=== PATIENT | male | born 1960 | race Caucasian/White ===

== ENCOUNTER 2020-05-10 18:02 | Inpatient (IN) | payer OTHER, SELFPAY ==
[2020-05-10] VITALS (15 sets, daily range): BP systolic 123–152; BP diastolic 58–107; PULSE 68–110; RESP 15–36; TEMP 36.1–36.6; O2SAT 87–100; BMI 48.1
--- NOTE | ~2020-05-10 | XR_ITS ---
EXAMINATION: XR chest 1V portable EXAM DATE: 05/10/2020 18:53 INDICATION: Shortness of breath, COPD. TECHNIQUE: Portable AP frontal chest x-ray was obtained. Comparison is made to prior examination from 05/24/2017. FINDINGS: Cardiomegaly and pulmonary vascular congestion. There is indistinct reticulation with a bib dexter predominance which may indicate pulmonary edema. Infection not excludable. No pneumothorax or pl eural effusion. There are no osseous abnormalities identified. IMPRESSION: Findings suspicious for CHF exacerbation. Reviewed, dictated and finalized at location A. NICAL SERVICES ANALYST
--- NOTE | 2020-05-10 18:05 | ECG_ITS ---
Measurements Intervals [place] Rate: 97 P: 68 KS: 169 QRS: -53 QRSD: 96 T: 47 QT: 314 QTc: 400 Interpretive Statements SINUS RHYTHM WITH SINUS ARRHYTHMIA ATRIAL PREMATURE COMPLEXES LOW QRS VOLTAGE IN PRECORDIAL LEADS LEFT ANTERIOR FASCICULAR BLOCK BORDERLINE T WAVE ABNORMALITY- DIFFUSE LEADS BASELINE ARTIFACT- II, III, AVR, AVL, AVF, V2 ABNORMAL ECG Electronically Signed On 05-11-2020 7:42:08 METAL ROOM DENTAL TECHNICIAN by Kashif Levy D.O.
[2020-05-10 18:20] LABS: Basophils Percent Auto 0.7 % (0.2-1.2); Eosinophils Absolute Auto 0.2 K/mm3 (0-0.3); Eosinophils Percent Auto 3.9 % (0-4.4); Hematocrit 44.4 % (42.0-52.0); Hemoglobin 13.6 g/dL (14.0-18.0); Immature Granulocyte Absolute 0.07 K/mm3 (0.00-0.031); Immature Granulocyte Percent A 1.2 % (0-0.5); Lymphocytes Absolute Auto 1.64 K/mm3 (0.9-3.2); Lymphocytes Percent Auto 28.8 % (18.3-44.2); Mean Corpuscular HGB Conc 30.6 g/dl (32-36); Mean Corpuscular Hemoglobin 29.8 pg (26-34); Mean Corpuscular Volume 97.2 fl (80-100); Mean Platelet Volume 9.2 fl (7.4-10.4); Monocytes Absolute Auto 0.4 K/mm3 (0.1-0.6); Monocytes Percent Auto 7.5 % (2.6-8.5); Neutrophils Absolute Auto 3.3 K/mm3 (1.3-6.7); Neutrophils Percent Auto 57.9 % (45.5-73.1); Platelet Count Result 408 k/mm3 (150-375); Red Blood Count 4.57 M/mm3 (4.6-6.20); Red Cell Distribution Width 13.8 % (11.5-14.5); White Blood Count 5.7 K/mm3 (4.5-10.0)
[2020-05-10 18:31] LABS: Anion Gap 0 mmol/L (8-16); Blood Urea Nitrogen 21 mg/dL (9-20); Calcium 8.9 mg/dL (8.4-10.2); Carbon Dioxide 36 mmol/L (22-30); Chloride 106 mmol/L (98-107); Estimated CRCL calculation 103 ml/min; Estimated Glomerular Filt Rate > 60; Glucose 104 mg/dL (75-110); Potassium 4.7 mmol/L (3.4-5.0); Sodium 142 mmol/L (137-145)
[2020-05-10 18:43] LABS: Base Excess ABG 2.3 mEq/l (+/-2.0); Carboxyhemoglobin 2.4 % THb (0-2.0); Fractional Inspired Oxygen 21 %; HCO3 ABG 31.7 mEq/l (22.0-26.0); Methemoglobin ABG 0.3 %THb (0-1.5); Oxygen Content ABG 18.9 %vol (16.0-22.0); Oxygen Saturation ABG 97.9 % (95.0-100.0); Oxyhemoglobin 94.9 % THb (90.0-100.0); PO2 ABG 127.4 mmHg (80.0-100.0); PO2 FiO2 Ratio Arterial Blood 6.07 %; Reduced Hemoglobin 2.4 %THb (0-5.0)
[2020-05-10 18:45] LABS: PCO2 ABG 73.4 mmHg (35.0-45.0); pH ABG 7.253 (7.350-7.450)
[2020-05-10 18:46] LABS: Device ROOM AIR; Modified Allen's Test Pass; Site Drawn RIGHT RADIAL
[2020-05-10] MEDS: LORazepam INJ (*CRX) 2 MG/ML VIAL 1 MG IV PUSH (19:02)
[2020-05-10 19:13] LABS: NT Pro B Type Natriuretic Pept 865 PG/ML (5-100)
[2020-05-10] MEDS: FUROSEMIDE INJ 40 MG/4 ML VIAL IV PUSH (19:33)
--- NOTE | 2020-05-10 19:52 | ED.SOB ---
HPI - SOB/Dyspnea General Chief Complaint: Shortness of Breath/Dyspnea Stated Complaint: SOB Time Seen by Provider: 05/10/20 18:03 History of Present Illness HPI Narrative: Patient is a 60-year-old male who presents ER with shortness of breath. Patient reports increasing over the last couple days. Associate with swelling to the legs as well as orthopnea. Reports he has not been taking his home medications because he is forgetting. He is unsure why he started to forget. No runny nose/sore throat/productive cough. No Covid contacts. He has been without fevers or chills. No chest pain. Related Data Home Medications Medication Instructions Recorded Confirmed amitriptyline 50 mg PO HS 05/10/20 05/10/20 cyanocobalamin (vitamin B-12) 1,000 mcg PO DAILY 05/10/20 05/10/20 ezetimibe 10 mg PO DAILY 05/10/20 05/10/20 furosemide 40 mg PO DAILY 05/10/20 05/10/20 gabapentin 300 mg PO DAILY 05/10/20 05/10/20 losartan 50 mg PO DAILY 05/10/20 05/10/20 pravastatin 20 mg PO DAILY 05/10/20 05/10/20 ropinirole 2 mg PO DAILY 05/10/20 05/10/20 Allergies Allergy/AdvReac Type Severity Reaction Status Date / Time No Known Allergies Allergy Verified 05/10/20 18:08 Review of Systems Review of Systems: All systems reviewed & are unremarkable except as noted in HPI and below Constitutional: Constitutional: Denies chills, Reports fatigue, Denies fever(s) and Denies weakness Cardiovascular: Cardiovascular: Denies chest pain, Denies rapid heart rate and Denies radiating jaw, neck or arm pain Respiratory: Respiratory: Denies cough, Reports dyspnea and Denies wheezing Comments: Orthopnea Gastrointestinal: Gastrointestinal: Denies abdominal pain, Denies nausea and Denies vomiting Musculoskeletal: Comments: Extremity edema PMFSH Past Medical History Medical History (Updated 05/10/20 @ 21:17 by Armando Dent MD) COPD (chronic obstructive pulmonary disease) Coronary artery disease History of diverticulitis History of left heart catheterization Hypercholesterolemia Hypertension Surgical History Surgical History History of laparotomy Social History Social History Smoking status: Current every day smoker Gender identity (if verbalized by the patient): Male Exam Narrative: Exam Narrative: GENERAL: Well-appearing, obese, and in no acute distress. HEAD: Normocephalic, atraumatic. EYES: PERRL and EOMI. CHEST: Basilar rales. No respiratory distress. HEART: Regular rate and rhythm. Normal peripheral pulses. ABDOMEN: Soft, nontender, nondistended. EXTREMITIES: Normal range of motion. 2+ edema. SKIN: Warm, dry, no rash. NEURO: Alert and oriented x3. PSYCH: Normal mood and affect. Course Course Emergency Course: Admit to hospital service. Vital Signs Vital signs: Vital Signs Temperature 97.8 F 05/10/20 18:05 Pulse Rate 110 H 05/10/20 18:05 Respiratory Rate 36 H 05/10/20 18:05 Blood Pressure 151/107 H 05/10/20 18:05 Pulse Oximetry 87 L 05/10/20 18:05 Temperature 97.3 F L 05/10/20 23:58 Pulse Rate 103 H 05/10/20 23:58 Respiratory Rate 24 H 05/10/20 23:58 Blood Pressure 130/77 05/10/20 23:58 Pulse Oximetry 95 05/10/20 23:58 MDM - SOB/Dyspnea Lab Data Result diagrams: 05/10/20 18:13 05/10/20 18:13 Labs: Lab Results 05/10/20 05/10/20 05/10/20 Range/Units 18:12 18:13 18:13 WBC 5.7 (4.5-10.0) K/mm3 RBC 4.57 L (4.6-6.20) M/mm3 Hgb 13.6 L (14.0-18.0) g/dL Hct 44.4 (42.0-52.0) % MCV 97.2 (80-100) fl MCH 29.8 (26-34) pg MCHC 30.6 L (32-36) g/dl RDW 13.8 (11.5-14.5) % Plt Count 408 H (150-375) k/mm3 MPV 9.2 (7.4-10.4) fl Immature Gran % (Auto) 1.2 H (0-0.5) % Neut % (Auto) 57.9 (45.5-73.1) % Lymph % (Auto) 28.8 (18.3-44.2) % [place] % (Auto) 7.5 (2.6-8.5) % Eos % (Auto) 3.9 (0-4.4)
[2020-05-10 21:06] LABS: Base Excess ABG 5.9 mEq/l (+/-2.0); Fractional Inspired Oxygen 30 %; HCO3 ABG 34.3 mEq/l (22.0-26.0); Oxygen Content ABG 18.8 %vol (16.0-22.0); Oxygen Saturation ABG 92.3 % (95.0-100.0); Oxyhemoglobin 90.4 % THb (90.0-100.0); PO2 ABG 70.1 mmHg (80.0-100.0); PO2 FiO2 Ratio Arterial Blood 2.34 %; Total Hemoglobin 14.8 g/dL (12.0-18.0); pH ABG 7.327 (7.350-7.450)
[2020-05-10 21:08] LABS: Modified Allen's Test Pass; PCO2 ABG 67.1 mmHg (35.0-45.0); Site Drawn LEFT RADIAL
--- NOTE | 2020-05-10 21:08 | PM.IMHP ---
H&P: HPI History of Present Illness Date/Time: 05/10/20 21:08 Chief Complaint: shortness of breath Narrative: This is a 60-year-old male with known past medical history of coronary artery disease, COPD, congestive heart failure, hypertension who presented to the hospital with complaint of increased shortness of breath and increased lower extremity swelling over the past few days. The patient admitted to ER provider that he had not been taking his home medications because he had forgotten to take them. The patient denied any chest pain, fevers, chills or significant coughing. In the emergency room tonight the patient was evaluated and found to be in acute respiratory failure with hypercapnia. He was initiated on BiPAP and was given Ativan IV for anxiety. On my encounter with the patient he is responsive to verbal stimuli but very somnolent secondary to being medicated. The patient cannot reliably answer my questions at this time although he denies any other significant symptoms other than shortness of breath. Review of Systems Review of Systems: ROS unobtainable: Yes unobtainable due to mental status PMFSH Past Medical History Medical History (Updated 05/11/20 @ 01:31 by Armando Dent MD) COPD (chronic obstructive pulmonary disease) Coronary artery disease History of diverticulitis History of left heart catheterization Hypercholesterolemia Hypertension Surgical History Surgical History History of laparotomy Social History Social History Smoking packs per day: 1 Smoking cigarettes per day: 20.0 Years smoked: 40 Smoking pack-years: 40.00 Smoking status: Light tobacco smoker Tobacco type: cigarettes Additional smoking assessment comments: pt currently only smokes 1-2 cigarettes a day Alcohol intake: never Substance use type: crack/cocaine Last use: 05/09/2020 Gender identity (if verbalized by the patient): Male Spiritual care concerns: No Comments Past medical history, social history, surgical history, family histories are not obtainable secondary to the patient's mental status from being medicated. Meds Home Medications and Allergies Home Medications Medication Instructions Recorded Confirmed Type amitriptyline 50 mg PO HS 05/10/20 05/10/20 History cyanocobalamin (vitamin B-12) 1,000 mcg PO DAILY 05/10/20 05/10/20 History ezetimibe 10 mg PO DAILY 05/10/20 05/10/20 History furosemide 40 mg PO DAILY 05/10/20 05/10/20 History gabapentin 300 mg PO DAILY 05/10/20 05/10/20 History losartan 50 mg PO DAILY 05/10/20 05/10/20 History pravastatin 20 mg PO DAILY 05/10/20 05/10/20 History ropinirole 2 mg PO DAILY 05/10/20 05/10/20 History albuterol sulfate 2 puff INHALATION PRN PRN 05/11/20 05/11/20 History albuterol sulfate [ProAir HFA] 2 puff INHALATION Q4-6H PRN 05/11/20 05/11/20 History aspirin 81 mg PO DAILY 05/11/20 05/11/20 History cholecalciferol (vitamin D3) 50,000 unit PO WEEKLY 05/11/20 05/11/20 History tiotropium bromide [Spiriva with 1 cap INHALATION DAILY 05/11/20 05/11/20 History HandiHaler] Allergies Allergy/AdvReac Type Severity Reaction Status Date / Time No Known Allergies Allergy Verified 05/11/20 00:18 Vital Signs Vital Signs - 24 hr 05/10/20 18:05 05/10/20 18:11 05/10/20 18:15 Temperature 36.6 C Pulse Rate 110 H 107 H 93 Respiratory Rate 36 H 19 23 H Blood Pressure 151/107 H Pulse Oximetry 87 L 98 98 05/10/20 18:23 05/10/20 18:30 05/10/20 18:31 Temperature Pulse Rate 84 106 H Respiratory Rate 17 15 Blood Pressure 152/90 H Pulse Oximetry 99 99 96 05/10/20 18:45 05/10/20 19:00 05/10/20 19:03 Temperature Pulse Rate 98 90 94 Respiratory Rate 18 25 H 25 H Blood Pressure 134/103 H Pulse Oximetry 100 96 99 05/10/20 19:10 Temperature Pulse Rate 89 Respiratory Rate 17 Blood Pressure Pulse Oximetry 99 Exa
[2020-05-10 21:09] LABS: Device NON-INVASIVE VENT; Non-Invasive Expiratory Pressure 8 CMH2O; Non-Invasive Inspiratory Pressure 16 CMH2O; Non-Invasive Vent Rate 16 /MIN
[2020-05-11] VITALS (14 sets, daily range): BP systolic 128–155; BP diastolic 68–89; PULSE 63–108; RESP 12–22; TEMP 36.2–36.5; O2SAT 86–96
--- NOTE | 2020-05-11 04:26 | PC.NURSE ---
This patient, Jarek Machado, was admitted to IMU Room 207-01. Patient too drowsy to be oriented to hospital policies and general routines including ID bracelet, bed and alarms, visiting hours, pain management, procedures, bathroom and other care routines, personal items, smoking policy, room service/diet, and visiting hours.
[2020-05-11 05:39] LABS: Basophils Percent Auto 0.5 % (0.2-1.2); Eosinophils Absolute Auto 0.3 K/mm3 (0-0.3); Eosinophils Percent Auto 4.3 % (0-4.4); Hematocrit 44.9 % (42.0-52.0); Hemoglobin 13.7 g/dL (14.0-18.0); Immature Granulocyte Absolute 0.05 K/mm3 (0.00-0.031); Immature Granulocyte Percent A 0.8 % (0-0.5); Lymphocytes Percent Auto 25.8 % (18.3-44.2); Mean Corpuscular HGB Conc 30.5 g/dl (32-36); Mean Corpuscular Hemoglobin 29.5 pg (26-34); Mean Corpuscular Volume 96.8 fl (80-100); Mean Platelet Volume 9.4 fl (7.4-10.4); Monocytes Absolute Auto 0.4 K/mm3 (0.1-0.6); Monocytes Percent Auto 5.9 % (2.6-8.5); Neutrophils Absolute Auto 4.1 K/mm3 (1.3-6.7); Neutrophils Percent Auto 62.7 % (45.5-73.1); Platelet Count Result 406 k/mm3 (150-375); Red Blood Count 4.64 M/mm3 (4.6-6.20); White Blood Count 6.6 K/mm3 (4.5-10.0)
[2020-05-11 06:00] LABS: Anion Gap 1 mmol/L (8-16); Blood Urea Nitrogen 18 mg/dL (9-20); Calcium 8.6 mg/dL (8.4-10.2); Carbon Dioxide 39 mmol/L (22-30); Chloride 102 mmol/L (98-107); Estimated CRCL calculation 98 ml/min; Estimated Glomerular Filt Rate > 60; Glucose 96 mg/dL (75-110); Magnesium 2.1 mg/dL (1.6-2.3); Potassium 4.3 mmol/L (3.4-5.0); Sodium 142 mmol/L (137-145)
[2020-05-11] MEDS: PRAVASTATIN SODIUM 20 MG TABLET PO (08:33)
[2020-05-11] MEDS: rOPINIRole HCL 1 MG TABLET 2 MG PO (08:33)
[2020-05-11] MEDS: EZETIMIBE 10 MG TABLET PO (08:34)
[2020-05-11] MEDS: ASPIRIN 81 MG ENTERIC TABLET PO (08:34)
[2020-05-11] MEDS: CYANOCOBALAMIN 1,000 MCG TABLET 1000 MCG PO (08:34)
[2020-05-11] MEDS: ENOXAPARIN 40 MG/0.4 ML SYRINGE SUB-Q (08:34)
[2020-05-11] MEDS: ERGOCALCIFEROL 50,000 UNIT CAPSULE 50000 UNITS PO (08:34)
[2020-05-11] MEDS: GABAPENTIN 300 MG CAPSULE PO (08:34)
[2020-05-11] MEDS: LOSARTAN POTASSIUM 50 MG TABLET PO (08:34)
[2020-05-11] MEDS: FUROSEMIDE INJ 40 MG/4 ML VIAL IV PUSH ×2 (08:37→20:53)
[2020-05-11 09:25] LABS: Alveolar/Arterial O2 Gradient 65.3 mmHg; Base Excess ABG 7.1 mEq/l (+/-2.0); Fractional Inspired Oxygen 28 %; HCO3 ABG 35.1 mEq/l (22.0-26.0); Oxygen Content ABG 19.2 %vol (16.0-22.0); Oxygen Saturation ABG 88.9 % (95.0-100.0); Oxyhemoglobin 88.9 % THb (90.0-100.0); PO2 ABG 59.2 mmHg (80.0-100.0); PO2 FiO2 Ratio Arterial Blood 2.11 %; Total Hemoglobin 15.4 g/dL (12.0-18.0); pH ABG 7.359 (7.350-7.450)
[2020-05-11 09:30] LABS: Device NASAL CANNULA; Modified Allen's Test Pass; PCO2 ABG 63.7 mmHg (35.0-45.0); Site Drawn RIGHT RADIAL
--- NOTE | 2020-05-11 15:02 | PM.IMPN ---
Progress Note: A&P Assessment and Plan (1) COPD (chronic obstructive pulmonary disease): Qualifiers: COPD type: unspecified COPD Qualified Code(s): J44.9 - Chronic obstructive pulmonary disease, unspecified Code(s): J44.9 - Chronic obstructive pulmonary disease, unspecified Status: Chronic Assessment and Plan: BiPAP continuous at night time BiPAP for naps during day time Breathing treatments (2) Hypercholesterolemia: Code(s): E78.00 - Pure hypercholesterolemia, unspecified Status: Chronic Assessment and Plan: Follow up in the outpatient setting. (3) Hypertension: Qualifiers: Hypertension type: unspecified Qualified Code(s): I10 - Essential (primary) hypertension Code(s): I10 - Essential (primary) hypertension Status: Chronic Assessment and Plan: Stable Continue to monitor Continue home meds (4) Acute exacerbation of congestive heart failure: Qualifiers: Heart failure type: unspecified Qualified Code(s): I50.9 - Heart failure, unspecified Code(s): I50.9 - Heart failure, unspecified Status: Acute Assessment and Plan: Doubtful as BPN is slightly elevated Discretion with diuresis Strict I/O's 2DECHO pending (5) Acute hypercapnic respiratory failure: Code(s): J96.02 - Acute respiratory failure with hypercapnia Status: Acute Assessment and Plan: Continue BiPAP ABG noted Subjective Date/time seen: 05/11/20 15:02 I feel fine. Review of Systems Review of Systems: Narrative: Unable to get a thorough review as patient dozes back to sleep. Exam Narrative: Exam Narrative: Sitting on chair. Const: General: no acute distress and lethargic Nutritional Appearance: overweight Orientation/consciousness: patient oriented x3 and lethargic HENMT: Head: normal to inspection and normocephalic Ears: hearing grossly normal bilaterally General nose exam: Normal external nose present Face and sinus: normal facial exam Eyes: General: appearance normal, both eyes and all related structures Pupils: Equal, round and reactive pupils present EOM: EOMs intact bilaterally Neck: Neck: normal visual inspection, no lymphadenopathy, supple and no JVD Resp: Auscultation: diminished lung sounds Cardio: Jugular venous distension: no JVD Rate: regular rate Rhythm: regular rhythm GI: Inspection: Pannus present GI Palp: Yes Soft to palpation and Yes No hepatosplenomegaly present Skin: General skin exam: normal color Rashes: no rashes Wounds: no wounds Neuro: General: patient oriented x3 and CN's II-XI intact bilaterally Cranial nerves: Yes CN's II-XII intact bilaterally and Yes Equal, round and reactive pupils present Cognition (Neuro): abnormal cognition (Mildly obtunded easily arousable. ) Speech: normal speech Motor exam (neuro): 5/5 motor strength present throughout Extrem: General: full ROM and other (B/L pedal edema.) Objective Data Vital Signs Vital Signs: Vital Signs - 24 hr 05/10/20 18:05 05/10/20 18:11 05/10/20 18:15 Temperature 97.8 F Pulse Rate 110 H 107 H 93 Respiratory Rate 36 H 19 23 H Blood Pressure 151/107 H Pulse Oximetry 87 L 98 98 05/10/20 18:23 05/10/20 18:30 05/10/20 18:31 Temperature Pulse Rate 84 106 H Respiratory Rate 17 15 Blood Pressure 152/90 H Pulse Oximetry 99 99 96 05/10/20 18:45 05/10/20 19:00 05/10/20 19:03 Temperature Pulse Rate 98 90 94 Respiratory Rate 18 25 H 25 H Blood Pressure 134/103 H Pulse Oximetry 100 96 99 05/10/20 19:10 05/10/20 22:29 05/10/20 22:35 Temperature Pulse Rate 89 110 H Respiratory Rate 17 29 H Blood Pressure 151/89 H Pulse Oximetry 99 98 05/10/20 22:40 05/10/20 22:49 05/10/20 23:58 Temperature 96.9 F L 97.3 F L Pulse Rate 68 89 103 H Respiratory Rate 17 24 H Blood Pressure 123/58 L 130/77 Pulse Oximetry 98 95 05/11/20 00:00 05/11/20 00:30 05/11/20 02:00 Temper
[2020-05-12] VITALS (11 sets, daily range): BP systolic 124–150; BP diastolic 64–87; PULSE 70–100; RESP 16–28; TEMP 36.3–36.9; O2SAT 91–95
--- NOTE | 2020-05-12 00:02 | PC.NURSE ---
This patient, Jarek Machado, was transferred to [[id number] ] on 05/12/20 at 0002. Personal belongings sent with patient. Report given to [Selene lópez ]. Appropriate documentation sent with patient.
[2020-05-12] MEDS: SALINE 0.65% NAS SOLN 44 ML BTL 1 SPRAY NASAL (04:10)
[2020-05-12] MEDS: ASPIRIN 81 MG ENTERIC TABLET PO (08:28)
[2020-05-12] MEDS: CYANOCOBALAMIN 1,000 MCG TABLET 1000 MCG PO (08:28)
[2020-05-12] MEDS: FUROSEMIDE INJ 40 MG/4 ML VIAL IV PUSH ×2 (08:29→20:50)
[2020-05-12] MEDS: EZETIMIBE 10 MG TABLET PO (08:29)
[2020-05-12] MEDS: ENOXAPARIN 40 MG/0.4 ML SYRINGE SUB-Q (08:29)
[2020-05-12] MEDS: GABAPENTIN 300 MG CAPSULE PO (08:29)
[2020-05-12] MEDS: rOPINIRole HCL 1 MG TABLET 2 MG PO (08:30)
[2020-05-12] MEDS: PRAVASTATIN SODIUM 20 MG TABLET PO (08:30)
[2020-05-12] MEDS: LOSARTAN POTASSIUM 50 MG TABLET PO (08:30)
[2020-05-12] MEDS: PERFLUTREN LIPID MICROSPHERES 1.5 ML VIAL DILUTED TO 10 ML TOTAL VOLUME (10:50)
--- NOTE | 2020-05-12 15:44 | PM.IMPN ---
Progress Note: A&P Assessment and Plan (1) COPD (chronic obstructive pulmonary disease): Qualifiers: COPD type: unspecified COPD Qualified Code(s): J44.9 - Chronic obstructive pulmonary disease, unspecified Code(s): J44.9 - Chronic obstructive pulmonary disease, unspecified Status: Chronic Assessment and Plan: More of a restrictive patter as patient is morbidly obese. Breathing treatments. Continue to monitor (2) Hypertension: Qualifiers: Hypertension type: unspecified Qualified Code(s): I10 - Essential (primary) hypertension Code(s): I10 - Essential (primary) hypertension Status: Chronic Assessment and Plan: Stable Continue to monitor (3) Acute exacerbation of congestive heart failure: Qualifiers: Heart failure type: unspecified Qualified Code(s): I50.9 - Heart failure, unspecified Code(s): I50.9 - Heart failure, unspecified Status: Acute Assessment and Plan: 2DECHO has been obtained Pending report Fluid restriction (4) Acute hypercapnic respiratory failure: Code(s): J96.02 - Acute respiratory failure with hypercapnia Status: Acute Assessment and Plan: Improved BiPAP continuous at time (5) ANA and COPD overlap syndrome: Code(s): G47.33 - Obstructive sleep apnea (adult) (pediatric); J44.9 - Chronic obstructive pulmonary disease, unspecified Status: Acute Assessment and Plan: Encourage the use of CPAP (6) Morbid obesity with BMI of 45.0-49.9, adult: Code(s): E66.01 - Morbid (severe) obesity due to excess calories; Z68.42 - Body mass index [BMI] 45.0-49.9, adult Status: Acute Assessment and Plan: Calorie restrictive diet. Lifestyle modifications. Subjective Date/time seen: 05/12/20 15:44 States that he feels much better.Used BiPAP on/off at night time. States that he gets very anxious when on it. Review of Systems Review of Systems: Narrative: Sitting in chair. Constitutional: Comments: no chills, no rigors, no fevers. Eyes: Comments: no vision changes. ENT: Comments: no ear ache, no nasal congestion, no throat pain. Cardiovascular: Comments: no chest pain. Respiratory: Comments: sob, no cough. Gastrointestinal: Comments: no n/v/abdominal pain. Musculoskeletal: Comments: B/L LE edema. Integumentary/Breasts: Comments: no rashes. Neurologic: Comments: no sensorymotor deficit. Exam Narrative: Exam Narrative: Sitting in chair. Const: General: cooperative, comfortable, alert, awake and Physically active Nutritional Appearance: other (Morbid obesity.) Orientation/consciousness: patient oriented x3 Limitations: no limitations HENMT: Head: normal to inspection and normocephalic Ears: hearing grossly normal bilaterally General nose exam: Normal external nose present Face and sinus: normal facial exam Eyes: General: appearance normal, both eyes and all related structures Pupils: Equal, round and reactive pupils present EOM: EOMs intact bilaterally Neck: Neck: no lymphadenopathy, supple and no JVD Resp: Auscultation: clear to auscultation bilaterally Cardio: Rate: regular rate Rhythm: regular rhythm GI: Inspection: Pannus present and obesity GI Palp: Yes Soft to palpation and Yes No hepatosplenomegaly present Skin: General skin exam: other (Chronic skin changes b/l le) Neuro: General: patient oriented x3 and CN's II-XI intact bilaterally Cranial nerves: Yes CN's II-XII intact bilaterally and Yes Equal, round and reactive pupils present Cognition (Neuro): normal cognition Speech: normal speech Motor exam (neuro): 5/5 motor strength present throughout Extrem: General: other (B/L LE edema.Non pitting.) Objective Data Vital Signs Vital Signs: Vital Signs - 24 hr 05/11/20 16:00 05/11/20 19:48 05/11/20 20:00 Temperature 97.1 F L 97.1 F L Pulse Rate 90 77 77 Respiratory Rate 20 18 18 Blood Pressure 145/81 H 146/70 H Pulse Ox
--- NOTE | 2020-05-12 16:51 | PM.CNPUL ---
Assessment and Plan Assessment and plan (1) Acute on chronic respiratory failure with hypoxia and hypercapnia: Onset Date: ~04/2020 Code(s): J96.21 - Acute and chronic respiratory failure with hypoxia; J96.22 - Acute and chronic respiratory failure with hypercapnia Status: Acute Assessment and Plan: He was admitted with pCO2 73 and high serum CO2 showing that he has compensated for chronic hypercapnia. It was acutely worse, and he required supplemental O2 at admission. His initial ABG says it was drawn on room air, not possible as the pO2 and pCO2 together were > 200- cannot be greater than 140-150. He has severe CO2 retention due to COPD, and has not benefitted enough from BiPAP; he is a better candidate for a noninvasive ventilator as this would manage his severe COPD and hypercapnia immediately, as he is still not completely corrected wit BIPAP. on the echo, his right ventricle is mildly enlarged suggesting right heart failure; He is on 2 L/min with saturation of 91%. He will need a walk study before he is discharged. (2) COPD (chronic obstructive pulmonary disease): Qualifiers: COPD type: unspecified COPD Qualified Code(s): J44.9 - Chronic obstructive pulmonary disease, unspecified Code(s): J44.9 - Chronic obstructive pulmonary disease, unspecified Status: Chronic Assessment and Plan: He has a history of COPD, uses inhalers at home, has started using a nebulizer several times a day just prior to admission. He has a pulmonary doctor at [place], does not know the names of his medications, but is using his nebulizer several times a day since he worsened. Add Symbicort for COPD, a Cornet valve to assist with clearance of secretions. Continue bronchodilator therapy. (3) Acute exacerbation of congestive heart failure: Qualifiers: Heart failure type: unspecified Qualified Code(s): I50.9 - Heart failure, unspecified Code(s): I50.9 - Heart failure, unspecified Status: Acute Assessment and Plan: Due to not taking medications for several days prior to admission. Missed his diuretics, increased weight with leg swelling and shortness of breath. (4) Tobacco abuse: Code(s): Z72.0 - Tobacco use Status: Acute Assessment and Plan: He smokes a pack per day, smokes crack every 3 days. He says crack helps to improve his breathing. Tobacco cessation is strongly encouraged, however it chances of getting him to quit are low with ongoing crack use. History of Present Illness History of Present Illness Consult date: 05/12/20 Requesting physician: Albina Giordano MD Reason for consult: COPD Chief complaint: CHF exacerbation, hypercania Narrative: NEW: Jarek Machado is a 60 year-old man with several medical diagnoses: CHF, COPD, untreated ANA, he stopped taking his meds for a few days, just forgot. Over those days he had increased shortness of breath, leg swelling, weakness. He sees Dr Christopher, inspector plug seam, and says that he also sees a pulmonary doctor, usually a woman, and all his doctors are at [facility] [facility]. He smokes a pack per day, sometimes smokes crack, every 3 days or so. He has a history of COPD, uses inhalers at home, has started using a nebulizer several times a day just prior to admission. He has a pulmonary doctor at [place], does not know the names of his medications, but is using his nebulizer several times a day since he worsened. ON admission through the ER, he was in acute respiratory failure with hypercapnia pCO2 in 60-70 range. He was initiated on BiPAP and was given Ativan IV for anxiety. He is now much more stable. Review of Systems Cardiovascular: Cardiovascular: Denies chest
--- NOTE | 2020-05-12 21:18 | ECHO_ITS ---
Patient Info Name: Jarek Machado Age: 60 years : 1960 Gender: Male Ht: 66 in Wt: 308 lbs BSA: 2.63 m2 HR: 80 bpm BP: 146 / 70 mmHg Heart Rhythm: Sinus Rhythm Technical Quality: Poor Exam Date: 05/12/2020 10:36 AM Exam Location: [facility] Pulmonary Patient Status: Inpatient Admit Date: 05/11/2020 Staff Ordering Physician: Armando Dent MD Shelter Advocate: Lou Pennington RDCS Attending Provider: Armando Dent MD Referring Physician: Jailene JAIMES; Exam Type: CA echo dop color flow w con Study Info Indications I50.9 - Heart failure, unspecified Complete two-dimensional, color flow and Doppler transthoracic echocardiogram is performed with contrast to opacify the left ventricle and to improve the deliniation of the left ventricle endocardial borders. Contrast/Agitated Saline Contrast/Ag. Saline: Definity Amount: 2.00 ml Administered By: Rajiv Cortez RN Existing IV Access: Yes IV Access Condition: patent with no signs of infiltration Reason for Poor Study: patient body habitus Summary 1. Definity contrast used to improve visualization. 2. Left ventricular systolic function is normal, estimated at 65-70%. 3. Technically challenging exam prior to injection of contrast. 4. Right ventricular chamber dimension is mildly enlarged. 5. Mildly sclerotic aortic valve which is not stenotic. Left Ventricle Left ventricular chamber dimension is normal. Left ventricular systolic function is normal, estimated at 65-70%. The left ventricular diastolic function is grade I diastolic dysfunction. Definity contrast used to improve visualization. Technically challenging exam prior to injection of contrast. Right Ventricle Right ventricular chamber dimension is mildly enlarged. Left Atria Left atrial chamber dimension is normal. Right Atria Right atrial chamber dimension is not well visualized. Aortic Valve The aortic valve is trileaflet. There is mild aortic valve sclerosis. Pulmonic Valve The pulmonic valve is not well visualized. Mitral Valve The mitral valve has normal leaflets. Tricuspid Valve The tricuspid valve leaflets are normal. Pericardium/Pleural The pericardium appears normal. Aorta The aortic root size at the sinus of Valsalva is normal. Left Ventricular Outflow Tract Name Value Normal LVOT 2D LVOT Diameter 2.00 cm LVOT Doppler LVOT Peak Gradient 4 mmHg LVOT Mean Gradient 2 mmHg LVOT VTI 18.68 cm LVOT VTI/AV VTI Ratio 0.74 LVOT Stroke Volume 58.45 ml LVOT CO 4.02 l/min LVOT CI 1.53 L/min/m2 Pulmonic Valve Name Value Normal RVOT Doppler RVOT Peak Gradient
[2020-05-13] VITALS (15 sets, daily range): BP systolic 114–127; BP diastolic 56–63; PULSE 78–113; RESP 18–20; TEMP 36.3–36.4; O2SAT 87–98
[2020-05-13] MEDS: ENOXAPARIN 40 MG/0.4 ML SYRINGE SUB-Q (09:44)
[2020-05-13] MEDS: CYANOCOBALAMIN 1,000 MCG TABLET 1000 MCG PO (09:44)
[2020-05-13] MEDS: ASPIRIN 81 MG ENTERIC TABLET PO (09:44)
[2020-05-13] MEDS: EZETIMIBE 10 MG TABLET PO (09:44)
[2020-05-13] MEDS: rOPINIRole HCL 1 MG TABLET 2 MG PO (09:45)
[2020-05-13] MEDS: GABAPENTIN 300 MG CAPSULE PO (09:45)
[2020-05-13] MEDS: LOSARTAN POTASSIUM 50 MG TABLET PO (09:45)
[2020-05-13] MEDS: FUROSEMIDE INJ 40 MG/4 ML VIAL IV PUSH (09:45)
[2020-05-13] MEDS: PRAVASTATIN SODIUM 20 MG TABLET PO (09:45)
--- NOTE | 2020-05-13 09:47 | PM.DS ---
DS: Admitting Diagnosis Admitting Diagnosis Admitting Diagnosis: Admitting diagnosis 1. Acute exacerbation of COPD with hypoxia and hypercapnia 2. Acute systolic heart failure 3. History of hypertension 4. History of high cholesterol 5. History of obstructive sleep apnea DS: Discharge Diagnosis Discharge Diagnosis (1) Acute on chronic respiratory failure with hypoxia and hypercapnia: Onset Date: ~04/2020 Code(s): J96.21 - Acute and chronic respiratory failure with hypoxia; J96.22 - Acute and chronic respiratory failure with hypercapnia Status: Acute (2) Tobacco abuse: Code(s): Z72.0 - Tobacco use Status: Acute (3) Morbid obesity with BMI of 45.0-49.9, adult: Code(s): E66.01 - Morbid (severe) obesity due to excess calories; Z68.42 - Body mass index [BMI] 45.0-49.9, adult Status: Acute (4) ANA and COPD overlap syndrome: Code(s): G47.33 - Obstructive sleep apnea (adult) (pediatric); J44.9 - Chronic obstructive pulmonary disease, unspecified Status: Acute (5) COPD (chronic obstructive pulmonary disease): Qualifiers: COPD type: unspecified COPD Qualified Code(s): J44.9 - Chronic obstructive pulmonary disease, unspecified Code(s): J44.9 - Chronic obstructive pulmonary disease, unspecified Status: Chronic (6) Hypertension: Qualifiers: Hypertension type: unspecified Qualified Code(s): I10 - Essential (primary) hypertension Code(s): I10 - Essential (primary) hypertension Status: Chronic (7) Hypercholesterolemia: Code(s): E78.00 - Pure hypercholesterolemia, unspecified Status: Chronic (8) Acute exacerbation of congestive heart failure: Qualifiers: Heart failure type: unspecified Qualified Code(s): I50.9 - Heart failure, unspecified Code(s): I50.9 - Heart failure, unspecified Status: Acute (9) Acute hypercapnic respiratory failure: Code(s): J96.02 - Acute respiratory failure with hypercapnia Status: Acute (10) Congestive heart failure: Code(s): I50.9 - Heart failure, unspecified Status: Acute DS: Summary Hospital Course Reason for hospitalization: Reason for hospitalization was acute exacerbation of COPD and acute systolic heart failure Hospital Course: Patient is 60 years old male with history of COPD and congestive heart failure with an out of the medication at home was admitted with complaints of shortness of breath patient physical examination shows that patient is wheezing and decreased air entry patient review of labs and the x-ray confirmed that the patient has acute exacerbation of COPD with hypoxia and hypercapnia and acute systolic heart failure patient was given diuresis and oxygen and BiPAP was given and Pulmonary was consulted his mood was suggested that can add Symbicort to the treatment and continue with the diuresis and at the time of discharge patient will go to [facility] but is done and oxygen was arranged at home condition dime-sized stable patient is feeling good today patient discharged home activity as tolerated low-sodium diet followed by martin fung and then the outpatient next week condition dime-sized stable Time spent discussing smoking cessation with patient: 3 to 10 minutes Status at Discharge Cognitive/behavioral status at discharge: His normal behavior and normal cognitive status Functional status at discharge: independent ambulation Overall status at discharge: patient is back to baseline Time Spent with Patient Time attestation: Total time spent providing and/or coordinating discharge services: Time spent: Less than 30 minutes Exam Const: General: cooperative and no acute distress Orientation/consciousness: oriented to person, oriented to place, oriented to time and patient oriented x3 HENMT: Head: normal to inspection Ears: hearing grossly normal bilaterally and external ears normal General nose exam: Normal external nose present Face
--- NOTE | 2020-05-13 13:51 | HOMEO2EVAL ---
Home Oxygen Evaluation RC: Home Oxygen (O2) Evaluation Start: 05/13/20 11:26 Freq: ONCE Status: Active Protocol: RPE Activity Type Activity Date Activity User E-Sign Co-Sign Detail Recorded Client Recorded Date Recorded By Document 05/13/20 13:30 JHON [id number] 05/13/20 13:51 JHON Document 05/13/20 13:32 JHON [id number] 05/13/20 13:51 JHON Document 05/13/20 13:34 JHON [id number] 05/13/20 13:51 JHON Document 05/13/20 13:40 JHON [id number] 05/13/20 13:51 JHON Document 05/13/20 13:45 JHON [id number] 05/13/20 13:51 JHON 05/13/20 05/13/20 05/13/20 13:30 13:32 13:34 Home O2 Evaluation Test Phase Resting Resting Resting Oxygen Delivery Room Air Nasal Cannula Nasal Cannula Oxygen Flow Rate (L/min) 1 2 Pulse Oximetry (90-100 %) 87 L 87 L 91 Ambulation Distance (feet) Home Oxygen Evaluation Comments Treatment Charges O2 Evaluation 05/13/20 05/13/20 13:40 13:45 Home O2 Evaluation Test Phase Exercise Resting Oxygen Delivery Nasal Cannula Nasal Cannula Oxygen Flow Rate (L/min) 2 2 Pulse Oximetry (90-100 %) 91 92 Ambulation Distance (feet) 300 Home Oxygen Evaluation Comments PT REQUIRES 2 LITERS AT REST AND WITHE EXERTION Treatment Charges
--- NOTE | 2020-05-13 13:57 | PCRCNOTE ---
HOME O2 EVAL DONE, 2 LITERS AT REST AND WITH EXERTION. WILL ARRANGE WITH [facility]. PHONE # [phone], ALSO ARRANGING HOME TRILOGY UNIT PER DR EASON. ALSO, SET UP WITH [facility]. [facility] WILL CONTINUE ARRANGING TRILOGY FROM HOME.
--- NOTE | 2020-05-13 16:17 | PCRCNOTE ---
signed trilogy order is scanned into record
--- NOTE | 2020-05-13 16:50 | PC.NURSE ---
[facility] Patient ordered home O2 portable tank. Patient attached to home O2 portable tank prior to leaving hospital. Instructed to call company on arrival to house for delivery of oxygen for home.
== END 2020-05-13 16:50 | disposition home or self-care (01) | DRG 140 ==
LOC: ANHED 20:18 → ANHIMU 21:11 → ANH2MED 05-13 09:47 → ANHIMU 05-19 09:37
PROVIDERS: Internal Medicine; Admitting Provider Family Medicine; Emergency Provider Emergency Medicine; Visit Provider Internal Medicine
DX: J44.1 Chronic obstructive pulmonary disease with (acute) exacerbation (principal); I11.0 Hypertensive heart disease with heart failure; I50.21 Acute systolic (congestive) heart failure; J96.21 Acute and chronic respiratory failure with hypoxia; J96.22 Acute and chronic respiratory failure with hypercapnia; G47.33 Obstructive sleep apnea (adult) (pediatric); E66.01 Morbid (severe) obesity due to excess calories; Z68.42 Body mass index [BMI] 45.0-49.9, adult; E78.00 Pure hypercholesterolemia, unspecified; F17.210 Nicotine dependence, cigarettes, uncomplicated; F14.90 Cocaine use, unspecified, uncomplicated; I25.10 Atherosclerotic heart disease of native coronary artery without angina pectoris; Z79.82 Long term (current) use of aspirin; Z79.899 Other long term (current) drug therapy
CPT/HCPCS: 36415; 36600; 71045; 80048; 82375; 82805; 83050; 83735; 83880; 84443; 85025; 93005; 94003; 94618; 94640; 94667; 96372; 96374; 96375; 96376; 99291; A9270; C8929; G0378; G0379; J1650; J1940; J2060; Q9957

== ENCOUNTER 2021-03-21 09:05 | Inpatient (IN) | payer OTHER, SELFPAY ==
[2021-03-21] VITALS (28 sets, daily range): BP systolic 109–137; BP diastolic 56–85; PULSE 95–132; RESP 20–39; TEMP 36.7–37.1; O2SAT 88–100; BMI 56.2
--- NOTE | ~2021-03-21 | XR_ITS ---
EXAMINATION: XR chest 1V portable DATE: 03/30/2021 05:27 INDICATION: Respiratory failure. TECHNIQUE: A single frontal view of the chest was obtained. COMPARISON: Chest single view 03/29/2021, chest CT 03/26/2021 FINDINGS: There are mild airspace opacities in the mid and lower lung zones with a basilar predominan ce. No pleural effusion or pneumothorax. The heart size is normal. The endotracheal tube tip is 4.3 c m above the robert. The nasogastric tube tip is beyond the inferior margin of the radiograph, but at least to the stomach. IMPRESSION: 1. Stable mild airspace opacities in the mid and lower lung zones, consistent with pulmonary edema ve rsus pneumonia. Reviewed, dictated and finalized at location A. DING ARCHITECT IMPRESSION: 1. Stable mild airspace opacities in the mid and lower lung zones, consistent w ith pulmonary edema versus pneumonia.
--- NOTE | ~2021-03-21 | XR_ITS ---
EXAMINATION: XR chest 1V portable DATE: 03/25/2021 06:02 INDICATION: Acute hypercapnic respiratory failure. Congestive heart failure. TECHNIQUE: frontal view of the chest was obtained. COMPARISON: Chest radiograph dated 03/24/2021 FINDINGS: Endotracheal tube tip 5.3 cm above the robert. Nasogastric tube can be followed to the distalmost eso phagus at which point it is obscured due to underpenetration. Opacities in the bilateral lower lung zones including a small left pleural effusion. No pneumothorax. Cardiomediastinal silhouette is normal. IMPRESSION: 1. Opacities in the bilateral lower lung zones consistent with atelectasis and/or pneumonia. 2. Small left pleural effusion. Reviewed, dictated and finalized at location A. IMPRESSION: 1. Opacities in the bilateral lower lung zones consistent with atelectasis and/ or pneumonia. 2. Small left pleural effusion.
--- NOTE | ~2021-03-21 | XR_ITS ---
XR chest ET placement 03/21/2021 15:13 Indication: Endotracheal tube placement Procedure: AP portable chest Comparison: Comparison to multiple prior studies sequentially, with oldest reviewed study dated 06/2017. Findings: Endotracheal tube tip 3 cm above the robert. NG tube in the distal aspect of the esophagus. Cardiomegaly. Mild interstitial edema. Small left pleural effusion. No pneumothorax. No acute osseou s abnormality. Impression: 1: Cardiomegaly with interstitial edema. Small left pleural effusion. Reviewed, dictated and finalized at location A. Impression: 1: Cardiomegaly with interstitial edema. Small left pleural effusion.
--- NOTE | ~2021-03-21 | XR_ITS ---
EXAMINATION: XR chest 1V portable DATE: 03/31/2021 05:45 INDICATION: Respiratory failure. TECHNIQUE: A single frontal view of the chest was obtained. COMPARISON: Chest single view 03/30/2021, chest CT 03/26/2021 FINDINGS: Again seen are airspace opacities in left lower lung zone. The right lung opacities have re solved. No pleural effusion or pneumothorax. The heart size is normal. The endotracheal tube tip is 4 .8 cm above the robert. The nasogastric tube tip is beyond the inferior margin of the radiograph, but at least to the stomach. IMPRESSION: 1. Airspace opacities in left lower lung zone, consistent with atelectasis versus pneumonia. Reviewed, dictated and finalized at location A. DENTIAL PEST CONTROL TECHNICIAN IMPRESSION: 1. Airspace opacities in left lower lung zone, consistent with atelectasis vers us pneumonia.
--- NOTE | ~2021-03-21 | XR_ITS ---
EXAMINATION: XR chest 1V portable DATE: 03/26/2021 06:07 INDICATION: Acute hypercapnic respiratory failure. Congestive heart failure. TECHNIQUE: frontal view of the chest was obtained. COMPARISON: Chest radiograph dated 03/25/2021 FINDINGS: Endotracheal tube tip 6.7 cm above the robert. Nasogastric tube extends below the left hemidiaphragm with distal tip collimated off the study. Persistent opacities in the bilateral lower lung zones with increasing opacification at the medial le ft lower lung zone. Blunting at the left costophrenic angle consistent with small left pleural effusi on. No pneumothorax. The cardiomediastinal silhouette is normal. IMPRESSION: 1. Opacities in the lower lung zones consistent with atelectasis and/or pneumonia which has progresse d at the left lower lobe. 2. Small left pleural effusion. Reviewed, dictated and finalized at location A. IMPRESSION: 1. Opacities in the lower lung zones consistent with atelectasis and/or pneumon ia which has progressed at the left lower lobe. 2. Small left pleural effusion.
--- NOTE | ~2021-03-21 | XR_ITS ---
EXAMINATION: XR chest 1V portable DATE: 04/01/2021 05:51 INDICATION: Respiratory failure. TECHNIQUE: A single frontal view of the chest was obtained on 2 radiographs. COMPARISON: Chest single view 03/31/2021, chest CT 03/26/2021 FINDINGS: There are airspace opacities in the lower lung zones. No pleural effusion or pneumothorax. The heart size is normal. The central pulmonary arteries are enlarged, consistent with pulmonary alaina rial hypertension. The endotracheal tube tip is 3.9 cm above the robert. The nasogastric tube tip is beyond the inferior margin of the radiograph, but at least to the stomach. IMPRESSION: 1. Airspace opacities in the lower lung zones with worsening on the right, consistent with atelectasi s versus pneumonia. Reviewed, dictated and finalized at location A. NSED PRACTICAL VOCATIONAL NURSE IMPRESSION: 1. Airspace opacities in the lower lung zones with worsening on the right, cons istent with atelectasis versus pneumonia.
--- NOTE | ~2021-03-21 | CT_ITS ---
EXAMINATION: CT diagnostic chest wo con DATE: 03/26/2021 12:18 INDICATION: Fever TECHNIQUE: Computed tomography (CT) of the chest was performed without intravenous contrast. The dose -length product (DLP) was 951.06 mGy-cm. Automated exposure control and iterative reconstruction tech Delphixque were employed. COMPARISON: 05/24/2017 FINDINGS: There are patchy nodular opacities of the upper lobes. More focal areas of consolidation ar e present in the dependent aspects of the lower lobes. There are trace pleural effusions. The heart s ize is normal. There is no pneumothorax. There is mediastinal lymphadenopathy with a precarinal lymph node measuring up to 1.5 cm. Calcified coronary artery atherosclerosis is noted. There is moderate t horacic spondylosis. The endotracheal tube is 3.8 cm above the robert. A nasogastric tube is follow ed to the stomach. IMPRESSION: 1. Bilateral dependent opacities of the lungs and patchy opacities of the upper lobes, consistent wit h atelectasis and pneumonia. 2. Mediastinal lymphadenopathy, likely reactive. Reviewed, dictated and finalized at location B. IMPRESSION: 1. Bilateral dependent opacities of the lungs and patchy opacities of the upper lobes, consistent with atelectasis and pneumonia. 2. Mediastinal lymphadenopathy, likely reactive.
--- NOTE | ~2021-03-21 | XR_ITS ---
EXAMINATION: XR chest 1V portable DATE: 03/23/2021 06:03 INDICATION: Acute hypercapnic respiratory failure. Congestive heart failure. TECHNIQUE: frontal view of the chest was obtained. COMPARISON: Chest radiograph dated 03/22/2021 FINDINGS: Endotracheal tube tip 4.9 cm above the robert. Nasogastric tube extends below the left hemidiaphragm with distal tip collimated off the study. Persistent opacities at the left lung base with blunting at the left costophrenic angle. Right lung r emains clear although the tip the right costophrenic angle is excluded from the [id number]. No pne umothorax. Cardiomegaly. IMPRESSION: 1. Persistent opacities at the left lung base which could represent atelectasis, pneumonia, small lef t pleural effusion or some combination thereof. 2. Cardiomegaly. Reviewed, dictated and finalized at location A. IMPRESSION: 1. Persistent opacities at the left lung base which could represent atelectasis , pneumonia, small left pleural effusion or some combination thereof. 2. Cardiomegaly.
--- NOTE | ~2021-03-21 | CT_ITS ---
EXAMINATION: CT brain wo con INDICATION: Confusion and weakness COMPARISON: 07/22/2014 TECHNIQUE: Standard unenhanced head CT. The dose-length product (DLP) was 681.00 mGy-cm. The mA was a djusted according to patient size. Iterative reconstruction technique was employed. FINDINGS: There is no intracranial hemorrhage, acute infarction, or abnormal mass lesion. The ventric les are normal. There is no abnormal mass effect or midline shift. The sanders-white matter differentiat ion is normal. The basal cisterns are patent. Intracranial calcified cerebral atherosclerosis is note d. The orbits are normal. There is partial opacification of the mastoid air cells. There is mild muco kamille thickening of the paranasal sinuses. IMPRESSION: 1. No acute intracranial abnormality. Reviewed, dictated and finalized at location B. [employer]ANT OPERATORS
--- NOTE | ~2021-03-21 | XR_ITS ---
EXAMINATION: XR chest 1V portable DATE: 03/24/2021 05:43 INDICATION: Acute hypercapnic respiratory failure. Congestive heart failure. TECHNIQUE: frontal view of the chest was obtained. COMPARISON: Chest radiograph dated 03/23/2021 FINDINGS: Endotracheal tube tip 5.0 cm above the robert. Nasogastric tube extends below the left hemidiaphragm with distal tip collimated off the study. Opacities in the bilateral lower lung zones. Likely small left pleural effusion. No pneumothorax. The cardiomediastinal silhouette is normal. IMPRESSION: 1. Opacities in the bilateral lower lung zones which could represent atelectasis, pneumonia or pulmon kristi edema. 2. Small left pleural effusion. Reviewed, dictated and finalized at location A. IMPRESSION: 1. Opacities in the bilateral lower lung zones which could represent atelectasi s, pneumonia or pulmonary edema. 2. Small left pleural effusion.
--- NOTE | ~2021-03-21 | XR_ITS ---
EXAMINATION: XR chest 1V portable DATE: 03/28/2021 05:54 INDICATION: respiratory failure TECHNIQUE: frontal view of the chest was obtained. COMPARISON: Chest radiograph and CT dated 03/26/2021 FINDINGS: Endotracheal tube tip 7.5 cm above the robert. Nasogastric tube extends below the left hemidiaphragm with distal tip collimated off the study. There is been some improvement in subtle airspace opacities in the bilateral lower lung zones consist ent with pneumonia. No pleural effusion or pneumothorax. The cardiomediastinal silhouette is normal. IMPRESSION: 1. Endotracheal tube tip 7.5 cm above the robert. Consider advancement by 5 cm. 2. Decreased opacities in bilateral lower lung zones which could represent improving improving pulmon kristi edema, aspiration, pneumonia and subsegmental atelectasis. Reviewed, dictated and finalized at location A. IMPRESSION: 1. Endotracheal tube tip 7.5 cm above the robert. Consider advancement by 5 cm. 2. Decreased opacities in bilateral lower lung zones which could represent impr oving improving pulmonary edema, aspiration, pneumonia and subsegmental atelect asis.
--- NOTE | ~2021-03-21 | XR_ITS ---
EXAMINATION: XR chest 1V portable EXAM DATE: 03/21/2021 09:30 INDICATION: Dyspnea. TECHNIQUE: Portable AP frontal chest x-ray was obtained. Comparison is made to prior examination from 05/10/2020. FINDINGS: There is cardiomegaly and pulmonary vascular congestion. There is indistinct reticulation w ith a bibasal predominance which may indicate pulmonary edema. No confluent consolidation, pneumothor ax or pleural effusion suspected. There are mild bony degenerative changes. IMPRESSION: Findings consistent with mild CHF exacerbation. Reviewed, dictated and finalized at location A.
--- NOTE | ~2021-03-21 | XR_ITS ---
XR abdomen NG/feed tube insert INDICATION: Evaluate NG tube position. TECHNIQUE: Limited KUB perform for evaluating NG tube . COMPARISON: No prior studies for comparison. FINDINGS: NG tube tip in the stomach. Visualized bowel gas pattern is unremarkable. IMPRESSION: 1: NG tube tip in the stomach. Reviewed, dictated and finalized at location A.
--- NOTE | ~2021-03-21 | XR_ITS ---
EXAMINATION: XR chest ET placement DATE: 03/29/2021 00:49 INDICATION: Endotracheal tube placement TECHNIQUE: frontal view of the chest was obtained. COMPARISON: Chest radiograph dated 03/28/2021 FINDINGS: Endotracheal tube tip 1.2 cm above the robert. Nasogastric tube extends below the left hemidiaphragm with distal tip collimated off the study. Increase in indistinct interstitial pattern in the perihilar and infrahilar regions superimposed over a basilar predominant gradient of hazy airspace opacities in the lower lung zones most likely increa sing mild pulmonary edema superimposed over small bilateral pleural effusions. No pneumothorax. The c ardiomediastinal silhouette is normal. IMPRESSION: 1. Increasing perihilar and infrahilar interstitial opacities most likely increasing mild pulmonary e omega with small bilateral pleural effusions although pneumonia not excludable. Reviewed, dictated and finalized at location A. UNTING PRACTICE MANAGER IMPRESSION: 1. Increasing perihilar and infrahilar interstitial opacities most likely incre asing mild pulmonary edema with small bilateral pleural effusions although pneu monia not excludable.
--- NOTE | ~2021-03-21 | XR_ITS ---
EXAMINATION: XR chest 1V portable EXAM DATE: 03/22/2021 05:46 INDICATION: Acute hypercapnic respiratory failure, CHF. TECHNIQUE: Portable AP frontal chest x-ray was obtained. Comparison is made to prior examination from 03/21. FINDINGS: Endotracheal tube tip is 5 centimeters above the robert. There is a nasogastric tube seen with tip collimated off the study, but below the left hemidiaphragm. Again there is cardiomegaly and pulmonary vascular congestion. There is indistinct reticulation with a bibasal predominance which may indicate pulmonary edema. There is no pneumothorax suspected. Small left pleural effusion. There are bony degenerative changes. IMPRESSION: 1. Tubes in position. 2. Findings consistent with CHF exacerbation. 3. Small left pleural effusion. Reviewed, dictated and finalized at location A.
--- NOTE | ~2021-03-21 | XR_ITS ---
EXAMINATION: XR chest ET placement EXAM DATE: 03/21/2021 12:47 INDICATION: Intubated. TECHNIQUE: Portable AP frontal chest x-ray was obtained. Comparison is made to prior examination from earlier same day. FINDINGS: Endotracheal tube tip is 1 centimeters above the robert. This could be safely retracted 1 cm. I phoned these results and reportedly the tube was already retracted by Abe Alfaro MD . Cardiomegaly, congestion and possible mild pulmonary edema. Small amount of basilar atelectasis or pn eumonia. No pneumothorax or pleural effusion. IMPRESSION: 1. Endotracheal tube as above. 2. Findings suspicious for CHF exacerbation. 3. Bibasilar subsegmental atelectasis or pneumonia. Reviewed, dictated and finalized at location A.
--- NOTE | ~2021-03-21 | XR_ITS ---
EXAMINATION: XR abdomen NG/feed tube rechec DATE: 03/29/2021 00:49 INDICATION: Reassess orogastric tube positioning TECHNIQUE: A supine view of the abdomen and lower chest was obtained for evaluation of feeding tube placement. COMPARISON: 03/21/2021 FINDINGS: Nasogastric tube tip in proximal side port in the body of the stomach. No dilated gas-filled loops of bowel in the visualized abdomen. Opacities in the bilateral lower lung zone. Heart size is normal ac counting for AP technique. IMPRESSION: 1. Nasogastric tube in the stomach. 2. Bibasilar opacities which could represent mild pulmonary edema, atelectasis, pneumonia or some com bination thereof. Reviewed, dictated and finalized at location A. CHIP MAKER IMPRESSION: 1. Nasogastric tube in the stomach. 2. Bibasilar opacities which could represent mild pulmonary edema, atelectasis, pneumonia or some combination thereof.
--- NOTE | 2021-03-21 09:15 | ECG_ITS ---
Measurements Intervals [place] Rate: 120 P: 56 GA: 153 QRS: -18 QRSD: 110 T: 62 QT: 299 QTc: 423 Interpretive Statements SINUS TACHYCARDIA INCOMPLETE RIGHT BUNDLE BRANCH BLOCK LOW QRS VOLTAGE IN PRECORDIAL LEADS BORDERLINE R WAVE PROGRESSION, ANTERIOR LEADS BASELINE ARTIFACT- I, II, III, AVR, AVL, AVF, V1-V6 ABNORMAL ECG Electronically Signed On 03-21-2021 15:50:22 CDT by Kashif Levy D.O.
[2021-03-21] MEDS: FUROSEMIDE INJ 40 MG/4 ML VIAL IV PUSH ×2 (09:36→21:33)
[2021-03-21] MEDS: methylPREDNISolone SOD SUCC 125 MG VIAL IV PUSH (09:37)
[2021-03-21] MEDS: ALBUTEROL SULFATE NEB 2.5 MG/0.5 ML INH 5 MG INHALATION ×2 (09:39→21:37)
[2021-03-21 09:40] LABS: Basophils Percent Auto 0.4 % (0.2-1.2); Eosinophils Absolute Auto 0.2 K/mm3 (0-0.3); Eosinophils Percent Auto 1.4 % (0-4.4); Hematocrit 43.6 % (42.0-52.0); Hemoglobin 13.8 g/dL (14.0-18.0); Immature Granulocyte Absolute 0.03 K/mm3 (0.00-0.031); Immature Granulocyte Percent A 0.3 % (0-0.5); Lymphocytes Absolute Auto 0.94 K/mm3 (0.9-3.2); Lymphocytes Percent Auto 8.9 % (18.3-44.2); Mean Corpuscular HGB Conc 31.7 g/dl (32-36); Mean Corpuscular Hemoglobin 30.5 pg (26-34); Mean Corpuscular Volume 96.5 fl (80-100); Mean Platelet Volume 10.3 fl (7.4-10.4); Monocytes Percent Auto 9.7 % (2.6-8.5); Neutrophils Absolute Auto 8.4 K/mm3 (1.3-6.7); Neutrophils Percent Auto 79.3 % (45.5-73.1); Platelet Count Result 176 k/mm3 (150-375); Red Blood Count 4.52 M/mm3 (4.6-6.20); Red Cell Distribution Width 12.5 % (11.5-14.5); White Blood Count 10.6 K/mm3 (4.5-10.0)
[2021-03-21] MEDS: IPRATROPIUM BR 0.02% INH SOLN 0.5 MG/2.5 ML VIAL INHALATION ×2 (09:40→21:36)
--- NOTE | 2021-03-21 09:45 | PC.NURSE ---
Pt continues to kick legs and flail around in bed. Pt educated on risk for falling out of bed due to moving so much. Order obtained for hydroxyzine for his restless legs. Pt denies using any illegal drugs
[2021-03-21 09:46] LABS: Alveolar/Arterial O2 Gradient 135.8 mmHg; Base Excess ABG 6.5 mEq/l (+/-2.0); Fractional Inspired Oxygen 40 %; HCO3 ABG 35.1 mEq/l (22.0-26.0); Oxygen Content ABG 18.3 %vol (16.0-22.0); Oxygen Saturation ABG 92.3 % (95.0-100.0); Oxyhemoglobin 89.8 % THb (90.0-100.0); PO2 ABG 70.3 mmHg (80.0-100.0); PO2 FiO2 Ratio Arterial Blood 1.76 %; Total Hemoglobin 14.5 g/dL (12.0-18.0); pH ABG 7.325 (7.350-7.450)
[2021-03-21 09:48] LABS: Device NASAL CANNULA; Modified Allen's Test Pass; PCO2 ABG 68.8 mmHg (35.0-45.0); Site Drawn RIGHT RADIAL
[2021-03-21] MEDS: hydrOXYzine HCL 25 MG TABLET PO (09:49)
--- NOTE | 2021-03-21 10:05 | PCRCNOTE ---
PT REFUSED BIPAP STATES HE WILL NOT WEAR. RN AND DR VAZQUEZ
[2021-03-21 10:07] LABS: Alanine Aminotransferase 103 U/L (4-50); Albumin Level 4.2 g/dL (3.5-5.1); Alkaline Phosphatase 84 U/L (38-126); Anion Gap 7 mmol/L (8-16); Aspartate Amino Transferase 348 U/L (17-59); Bilirubin,Total 0.4 mg/dL (0.2-1.3); Blood Urea Nitrogen 47 mg/dL (9-20); Calcium 9.8 mg/dL (8.4-10.2); Carbon Dioxide 34 mmol/L (22-30); Chloride 97 mmol/L (98-107); Estimated CRCL calculation 84 ml/min; Estimated Glomerular Filt Rate > 60; Glucose 132 mg/dL (65-110); Potassium 4.4 mmol/L (3.4-5.0); Sodium 138 mmol/L (137-145)
--- NOTE | 2021-03-21 10:18 | ED.SOB ---
HPI - SOB/Dyspnea General Chief Complaint: Shortness of Breath/Dyspnea Stated Complaint: Difficulty breathing Time Seen by Provider: 03/21/21 09:14 Source: patient, EMS, RN notes reviewed and old records reviewed History of Present Illness HPI Narrative: Patient presents for hallucinations and shortness of breath. Patient sharan has been seeing and hearing things for the past 2 days and is not sure why. He denies taking any illicit substances. Also reports he is feeling short of breath reports a history of heart disease and COPD. Denies any focal areas of pain reports his shortness of breath is worse when he lays flat. Related Data Home Medications Medication Instructions Recorded Confirmed ropinirole 2 mg PO DAILY 05/10/20 12/15/20 albuterol sulfate [ProAir HFA] 2 puff INHALATION Q4-6H PRN 05/11/20 12/15/20 aspirin 81 mg PO DAILY 05/11/20 12/15/20 cholecalciferol (vitamin D3) 50,000 unit PO WEEKLY 05/11/20 12/15/20 bumetanide 2 mg tablet 2 mg PO DAILY 06/18/20 12/15/20 ferrous sulfate 325 mg (65 mg 325 mg PO DAILY 06/18/20 12/15/20 iron) tablet furosemide 40 mg tablet 10 mg PO DAILY tablet 06/18/20 12/15/20 Allergies Allergy/AdvReac Type Severity Reaction Status Date / Time No Known Allergies Allergy Verified 07/24/20 11:16 Review of Systems Review of Systems: CONSTITUTIONAL: Denies fever, chills, or sweats. EYES: Denies visual changes, redness, or discharge. ENT: Denies rhinorrhea, congestion, sore throat, or otalgia. CARDIOVASCULAR: Denies chest pain, palpitations, or edema. RESPIRATORY: Denies cough GASTROINTESTINAL: Denies abdominal pain, nausea, vomiting, or diarrhea. GENITOURINARY: Denies dysuria or hematuria. SKIN: Denies rash or itching. MUSCULOSKELETAL: Denies back pain, joint pain, or myalgia. NEUROLOGIC: Denies headache, numbness, dizziness, or weakness. PSYCHIATRIC: Denies anxiety or depression. All systems reviewed & are unremarkable except as noted in HPI and below PMFSH Past Medical History Medical History Chronic back pain Chronic obstructive pulmonary disease Chronic respiratory failure with hypoxia, on home oxygen therapy Coronary artery disease Diverticulitis Hypercholesterolemia Hypertension Nicotine dependence Obstructive sleep apnea Surgical History Surgical History History of laparotomy Related to perforated diverticulitis. History of left heart catheterization Family History Family History Mother Aneurysm Other Cancer Social History Social History Social History: Surrogate decision-maker: Vicky Ortega and Nanette Fernandez, siblings. CODE STATUS: Full code. Smoking packs per day: 0.5 Smoking cigarettes per day: 10.0 Years smoked: 40 Smoking pack-years: 20.00 Smoking status: Current every day smoker Tobacco type: cigarettes Alcohol intake: current Substance use: current Substance use type: crack/cocaine, amphetamines and other Last use: 03/20/2021 Spiritual care concerns: No Exam Narrative: GENERAL: Patient appears agitated HEAD: Normocephalic, atraumatic. EYES: PERRLA and EOMI. ENT: Nares clear, no rhinorrhea or epistaxis. Mucous membranes moist. NECK: Supple. No masses. No JVD CHEST: Patient is tachypneic HEART: Regular tachycardia. No murmur heard. Normal peripheral pulses. ABDOMEN: Soft, nontender, nondistended, normal active bowel sounds. EXTREMITIES: Normal range of motion. 1+ pitting edema SKIN: Warm, dry, no rash. NEURO: No focal deficits. Alert and oriented x3. PSYCH: Normal mood and affect. Course Reevaluation(s) Reevaluation #1: Patient's agitation worsened he was given additional benzos Haldol. Patient will be admitted for substance abuse and hypoxia. Work-up thus far is primary concern is for substan
[2021-03-21 10:21] LABS: Troponin I 0.062 ng/mL (0.000-0.034)
[2021-03-21] MEDS: ALBUTEROL SULFATE NEB 2.5 MG/0.5 ML INH 10 MG INHALATION (10:33)
[2021-03-21] MEDS: IPRATROPIUM BR 0.02% INH SOLN 0.5 MG/2.5 ML VIAL 1 MG INHALATION (10:33)
[2021-03-21 10:41] LABS: Add Urine Microscopic? YES; Appearance Urine Clear (Clear); Bacteria Urine Trace /hpf; Bilirubin Urine Negative (Negative); Blood Urine 1+ (Negative); Color Urine Yellow (Yellow); Glucose Urine UA Negative (Negative); Ketones Urine Negative (Negative); Leukocyte Esterase Ur Negative LEU/UL (Negative); Mucus Urine Rare /lpf; Nitrate Urine Negative (Negative); Protein Urine Negative (Negative); Specific Grav Ur 1.015 (1.001-1.035); Squamous Epithelial Cell Urine Rare /hpf (Few); Urobilinogen Urine Negative mg/dL (<2.0); WBC Urine 0-3 /hpf
[2021-03-21 10:45] LABS: NT Pro B Type Natriuretic Pept 614 pg/mL (5-100)
[2021-03-21 10:54] LABS: Barbiturate Screen Urine Negative (Negative); Benzodiazepines Screen Urine Positive (Negative)
[2021-03-21] MEDS: LORazepam INJ (*CRX) 2 MG/ML VIAL 0.5 MG IV PUSH (10:57)
[2021-03-21 11:25] LABS: Amphetamine Screen Urine Positive (Negative); Cannabinoid Screen Urine Negative (Negative); Cocaine Screen Urine Positive (Negative); Methadone Screen Urine Negative (Negative); Opiate Screen Urine Negative (Negative); Phencyclidine Screen Urine Negative (Negative)
[2021-03-21] MEDS: LORazepam INJ (*CRX) 2 MG/ML VIAL 1 MG IV PUSH (11:33)
--- NOTE | 2021-03-21 11:51 | PC.NURSE ---
Pt continues to thrash in bed and remove all lines and oxygen tubing. Pt is not following directions and keeps yelling i'm hot i'm hot . Verbal order obtained for additional 1mg ativan
[2021-03-21] MEDS: LORazepam INJ (*CRX) 2 MG/ML VIAL IV PUSH (11:59)
[2021-03-21] MEDS: HALOPERIDOL LACTATE 5 MG/ML VIAL IV PUSH (12:03)
--- NOTE | 2021-03-21 12:36 | ECG_ITS ---
Measurements Intervals [place] Rate: 121 P: 70 MD: 161 QRS: 20 QRSD: 109 T: 66 QT: 302 QTc: 430 Interpretive Statements SINUS TACHYCARDIA INCOMPLETE RIGHT BUNDLE BRANCH BLOCK LOW QRS VOLTAGE IN DIFFUSE LEADS POOR R WAVE PROGRESSION, ANTERIOR LEADS BASELINE ARTIFACT- V1-V2, V5-V6 Electronically Signed On 03-21-2021 15:57:56 CDT by Kashif Levy D.O.
--- NOTE | 2021-03-21 12:37 | PC.NURSE ---
Pt extremely combative, removing lines, oxygen tubing and swinging at staff. Unable to obtain accurate vital signs. EDP decision for emergent intubation. Pt given 100mg succinylcholine and 30mg etomidate at 1220. Pt difficult intubation and required an additional 10mg etomidate at 1232. Pt intubated at 1233 with 7.0mm tube approx 25cm to the lip.
[2021-03-21] MEDS: PROPOFOL IV EMULSION 100 ML 4.74 MG IV CONT (12:53)
--- NOTE | 2021-03-21 12:57 | PC.NURSE ---
Pt sisters were called and updated on pt status and admission to ICU
[2021-03-21 13:13] LABS: Lactic Acid Reflex 1.9 mmol/L (0.7-2.1)
[2021-03-21 13:18] LABS: Base Excess ABG 3.6 mEq/l (+/-2.0); Carboxyhemoglobin 1.5 % THb (0-2.0); Fractional Inspired Oxygen 70 %; HCO3 ABG 34.5 mEq/l (22.0-26.0); Methemoglobin ABG 0.4 %THb (0-1.5); Oxygen Content ABG 19.7 %vol (16.0-22.0); Oxygen Saturation ABG 95.1 % (95.0-100.0); PO2 ABG 92.8 mmHg (80.0-100.0); PO2 FiO2 Ratio Arterial Blood 1.33 %; Reduced Hemoglobin 5.1 %THb (0-5.0)
--- NOTE | 2021-03-21 13:20 | PM.IMHP ---
H&P: HPI History of Present Illness Date/Time: 03/21/21 13:20 Chief Complaint: Shortness of breath. Narrative: This is a 61-year-old male smoker with COPD, chronic respiratory failure on 2 L, hypertension, hyperlipidemia, morbid obesity, and history of illicit substance who presented to the emergency department earlier today via private vehicle for evaluation of shortness of breath. The patient is currently sedated and intubated and is unable to provide any history and as such all of the following is obtained via review his electronic medical records as well as discussions with staff in the emergency department. According to the triage nurse, the patient called his sister this morning crying with reports of shortness of breath hallucinations. ABG done on arrival to the emergency department showed acute on chronic respiratory failure with hypercapnia for which he was given a continuous nebulizer and Solu-Medrol of unclear benefit, as the patient was very anxious and agitated. In fact he required several doses of Ativan and Haldol and was eventually sedated and intubated. According to family members, the patient was celebrating his 61th birthday last evening and they suspect that he probably did partake in illicit substances and indeed his drug screen was positive for cocaine, benzodiazepines, and amphetamines. Chest x-ray did show findings suspicious for CHF and he was also given a dose of Lasix. There is no mention of recent illness. Aside from tachycardia on arrival, his vital signs were unremarkable and he was afebrile. Review of Systems Review of Systems: Unable to assess as the patient is currently sedated and intubated PMFSH Past Medical History Medical History (Updated 03/21/21 @ 13:53 by Sussy Bird PA-C) Chronic back pain Chronic obstructive pulmonary disease Chronic respiratory failure with hypoxia, on home oxygen therapy Coronary artery disease Diverticulitis Hypercholesterolemia Hypertension Nicotine dependence Obstructive sleep apnea Surgical History Surgical History (Updated 03/21/21 @ 13:23 by Sussy Bird PA-C) History of laparotomy Related to perforated diverticulitis. History of left heart catheterization Family History Family History (Updated 03/21/21 @ 13:23 by Sussy Bird PA-C) Mother Aneurysm Other Cancer Social History Social History (Updated 03/21/21 @ 13:25 by Sussy Bird PA-C) Social History: Surrogate decision-maker: Vicky Ortega and Nanette Fernandez, siblings. CODE STATUS: Full code. Smoking packs per day: 0.5 Smoking cigarettes per day: 10.0 Years smoked: 40 Smoking pack-years: 20.00 Smoking status: Current every day smoker Tobacco type: cigarettes Alcohol intake: current Substance use type: crack/cocaine and amphetamines Last use: 03/20/2021 Meds Home Medications and Allergies Home Medications Medication Instructions Recorded Confirmed Type ropinirole 2 mg PO DAILY 05/10/20 12/15/20 History albuterol sulfate [ProAir HFA] 2 puff INHALATION Q4-6H PRN 05/11/20 12/15/20 History aspirin 81 mg PO DAILY 05/11/20 12/15/20 History cholecalciferol (vitamin D3) 50,000 unit PO WEEKLY 05/11/20 12/15/20 History ezetimibe [Zetia] 10 mg PO DAILY 30 Days #30 tablet 05/13/20 12/15/20 Rx losartan [Cozaar] 50 mg PO DAILY 30 Days #30 tablet 05/13/20 12/15/20 Rx pravastatin 20 mg PO DAILY 30 Days #30 tablet 05/13/20 12/15/20 Rx bumetanide 2 mg tablet 2 mg PO DAILY 06/18/20 12/15/20 History ferrous sulfate 325 mg (65 mg 325 mg PO DAILY 06/18/20 12/15/20 History iron) tablet furosemide 40 mg tablet 10 mg PO DAILY tablet 06/18/20 12/15/20 History fluticasone 250 mcg-salmeterol 50 1 inh INHALATION BID #60 ea 08/07/20 12/15/20 Rx mcg/dose blistr powdr for inhalation budesonide-formoterol HFA 160 2 puff INHALATION Q12HRT 30 Days 10/28/20 12/15/20 Rx mcg-4.5 mcg/actuation aerosol #1 g inhaler gabapentin 300 mg capsule 300 mg PO BID #180 cap
[2021-03-21 13:22] LABS: pH ABG 7.222 (7.350-7.450)
[2021-03-21 13:23] LABS: Device VENTILATOR; Modified Allen's Test Pass; PCO2 ABG 85.9 mmHg (35.0-45.0); Site Drawn LEFT RADIAL
[2021-03-21 13:24] LABS: Arterial Blood Gas PEEP 7 cmH2O; Arterial Blood Gas Tidal Volume 500 ml; Arterial Blood Gas Vent Mode CMV; Arterial Blood Gas Ventilator rate 12 /MIN
[2021-03-21] MEDS: fentaNYL CITRATE INJ (*CRX) 100 MCG/2 ML VIAL IV PUSH (13:51)
--- NOTE | 2021-03-21 14:46 | WPDCNINT ---
Assessment and Plan Assessment and plan (1) Acute on chronic respiratory failure with hypoxia and hypercapnia: Code(s): J96.21 - Acute and chronic respiratory failure with hypoxia; J96.22 - Acute and chronic respiratory failure with hypercapnia Status: Acute Assessment and Plan: acute hypercapnic respiratory failure could be related to CHF exacerbation, COPD exacerbation, substance abuse - chest x-ray and ABGs reviewed, ventilator adjusted - continue bronchodilators - will add Pulmozyme - sedated with propofol (2) CHF exacerbation: Qualifiers: Heart failure type: unspecified Qualified Code(s): I50.9 - Heart failure, unspecified Code(s): I50.9 - Heart failure, unspecified Status: Acute Assessment and Plan: chest x-ray shows signs of congestive heart failure - patient was given Lasix in the ER - hospitalist has started patient on Lasix q.12 hours - will obtain echocardiogram (3) COPD exacerbation: Code(s): J44.1 - Chronic obstructive pulmonary disease with (acute) exacerbation Status: Acute Assessment and Plan: COPD exacerbation given hypercapnic respiratory failure - currently intubated, ventilator has been adjusted for hypercapnia on ABGs - continue steroid, bronchodilators, will add ceftriaxone - will recheck ABGs this evening (4) Hallucinations: Code(s): R44.3 - Hallucinations, unspecified Status: Acute Assessment and Plan: patient complaining of auditory and visual hallucinations which could be related to substance abuse, hypercapnia - will evaluate patient wants he has extubated and off sedation (5) Nicotine dependence: Code(s): F17.200 - Nicotine dependence, unspecified, uncomplicated Status: Acute Assessment and Plan: patient continues to smoke half a packet per day - once patient is extubated awake will consult him on cessation of smoking and tobacco use (6) Elevated troponin: Code(s): R77.8 - Other specified abnormalities of plasma proteins Status: Acute Assessment and Plan: troponin elevated x1, likely related to respiratory failure, could be related to methamphetamine and adrenergic surge - will trend troponin - EKG did not show any ST elevations (7) Active substance abuse: Code(s): F19.10 - Other psychoactive substance abuse, uncomplicated Status: Acute Assessment and Plan: urine tox screen is positive for amphetamines, benzodiazepines and cocaine (8) DVT prophylaxis: Code(s): Z29.9 - Encounter for prophylactic measures, unspecified Status: Acute Assessment and Plan: DVT prophylaxis: Lovenox SQ stress ulcer prophylaxis: Protonix Additional Plan code status: Full code Critical time spent: 47 minutes This dictation may have been done utilizing a voice recognition system. Attempts have been made to correct errors. However, there may be uncorrected grammatical, spelling, and recognition errors present. Due to a high probability of clinically significant, life threatening deterioration, the patient required my highest level of preparedness to intervene emergently and I personally spent this critical care time directly and personally managing the patient. This critical care time included obtaining a history; examining the patient; pulse oximetry; ordering and review of studies; arranging urgent treatment with development of a management plan; evaluation of patient's response to treatment; frequent reassessment; and discussions with other providers. It was exclusive of separately billable procedures and treating other patients and teaching time. Please see Assessment and Plan section and the rest of the note for further information on patient assessment and treatment [facility] Consult Note Consult date: 03/21/21 Time Seen: 15:32 Reason for consult: Acute hypercapnic respiratory failure, COPD exacerbation, drug abuse HPI: Jarek Sandhu
--- NOTE | 2021-03-21 15:16 | ADMGEN ---
This patient, Jarek Machado, was admitted to Intensive Care Unit-8 at 1430 on 03/21/2021. Patient/family oriented to hospital policies and general routines including ID bracelet, bed and alarms, visiting hours, pain management, procedures, bathroom and other care routines, personal items, smoking policy, room service/diet, and visiting hours. Information on how to activate the Rapid Response Team has been discussed. Patient/Family are encouraged to report perceived risks to care and to ask questions if they do not understand what they are told or what they should do.
[2021-03-21 15:52] LABS: Prothrombin Time 12.9 Seconds (11.1-14.7)
[2021-03-21 15:53] LABS: Partial Thromboplastin Time 25.4 SECONDS (22.3-36.8)
[2021-03-21 15:59] LABS: Troponin I 0.085 ng/mL (0.000-0.034)
--- NOTE | 2021-03-21 16:44 | PM.CNCAR ---
Assessment and Plan Assessment and plan (1) Elevated troponin: Code(s): R77.8 - Other specified abnormalities of plasma proteins Status: Acute Assessment and Plan: Very mildly elevated troponin in a patient with apparent CAD. No history of recent chest pain, no ischemic EKG changes. Likely elevated troponin secondary to physiologic stress of tachycardia, respiratory failure, CHF perhaps a component of substance abuse as well. Doubt ACS. (2) Coronary artery disease: Qualifiers: Coronary Disease-Associated Artery/Lesion type: unspecified vessel or lesion type [place] vs. transplanted heart: unspecified whether [place] or transplanted heart Associated angina: angina presence unspecified Qualified Code(s): I25.10 - Atherosclerotic heart disease of [place] coronary artery without angina pectoris Code(s): I25.10 - Atherosclerotic heart disease of [place] coronary artery without angina pectoris Status: Acute Assessment and Plan: No records available, nothing in [facility] or Care everywhere. Has received some care from [facility], will see if they have any records. Resume aspirin 81 mg daily, Zetia, pravastatin (3) Acute on chronic diastolic CHF (congestive heart failure): Code(s): I50.33 - Acute on chronic diastolic (congestive) heart failure Status: Acute Assessment and Plan: History of diastolic heart failure, now with a very mildly elevated proBNP but chest x-ray suggestive of CHF (and/or pneumonia). Agree with furosemide 40 mg IV push b.i.d.. Echo. (4) Acute on chronic respiratory failure with hypoxia and hypercapnia: Code(s): J96.21 - Acute and chronic respiratory failure with hypoxia; J96.22 - Acute and chronic respiratory failure with hypercapnia Status: Acute Assessment and Plan: History of COPD with acute on chronic respiratory failure requiring intubation. Continue supportive care per warehouse man. (5) COPD exacerbation: Code(s): J44.1 - Chronic obstructive pulmonary disease with (acute) exacerbation Status: Acute Assessment and Plan: History of COPD, ongoing smoking, here with an exacerbation. (6) Substance abuse: Code(s): F19.10 - Other psychoactive substance abuse, uncomplicated Status: Acute Assessment and Plan: Drug screen positive for amphetamines, cocaine, benzodiazepines. (7) Hypertension: Qualifiers: Hypertension type: unspecified Qualified Code(s): I10 - Essential (primary) hypertension Code(s): I10 - Essential (primary) hypertension Status: Chronic Assessment and Plan: Controlled at this time. (8) Nicotine dependence: Code(s): F17.200 - Nicotine dependence, unspecified, uncomplicated Status: Acute Assessment and Plan: History of Present Illness History of Present Illness Consult date/time: 03/21/21 16:45 Requesting physician: Abe Alfaro MD Consult reason: Other (elevated troponins) Reason For Visit: Substance abuse Narrative: Date of service 03/21/2021: Jarek Machado is a 61-year-old male whom I was asked to see at the request of the ER physician Abe Alfaro for my advice and opinion regarding his elevated troponins in consultation. History of CAD and CHF, COPD. Hypertension, hyperlipidemia, ANA and ongoing tobacco use. Mr. Machado came to the emergency room today complaining of hallucinations for 2 days and shortness of breath. The patient cannot give any history at this point but per EMR he was more short of breath supine and has a history of CAD, CHF and COPD. BP 109/85 and 134/75 but heart rate was 122. He was in acute on chronic respiratory failure with hypercapnia and deteriorated in the ER, becoming very agitated, and eventually required intubation. The family suspected that h
[2021-03-21] MEDS: methylPREDNISolone SOD SUCC 40 MG VIAL IV PUSH (18:13)
[2021-03-21] MEDS: PROPOFOL IV EMULSION 100 ML 23.7 MG IV CONT (18:15)
[2021-03-21 18:37] LABS: Troponin I 0.095 ng/mL (0.000-0.034)
[2021-03-21 20:44] LABS: Alveolar/Arterial O2 Gradient 265.2 mmHg; Device VENTILATOR; Fractional Inspired Oxygen 55 %; Modified Allen's Test Pass; Oxygen Content ABG 19.3 %vol (16.0-22.0); Oxyhemoglobin 92.3 % THb (90.0-100.0); PCO2 ABG 50.8 mmHg (35.0-45.0); PO2 ABG 70.4 mmHg (80.0-100.0); PO2 FiO2 Ratio Arterial Blood 1.28 %; Site Drawn RIGHT RADIAL; Total Hemoglobin 14.9 g/dL (12.0-18.0); pH ABG 7.404 (7.350-7.450)
[2021-03-21 20:45] LABS: Arterial Blood Gas PEEP 8 cmH2O; Arterial Blood Gas Tidal Volume 500 ml; Arterial Blood Gas Vent Mode CMV; Arterial Blood Gas Ventilator rate 22 /MIN
[2021-03-21] MEDS: DORNASE ALFA INH SOLN 1 MG/ML 2.5 ML AMP 2.5 MG INHALATION (21:37)
[2021-03-21] MEDS: PROPOFOL IV EMULSION 100 ML 28.44 MG IV CONT (21:38)
[2021-03-22] VITALS (47 sets, daily range): BP systolic 113–145; BP diastolic 71–80; PULSE 80–107; RESP 22–30; TEMP 36.5–37.1; O2SAT 94–98
[2021-03-22] MEDS: methylPREDNISolone SOD SUCC 40 MG VIAL IV PUSH ×4 (00:01→17:31)
[2021-03-22] MEDS: ALBUTEROL SULFATE NEB 2.5 MG/0.5 ML INH 5 MG INHALATION ×4 (02:02→20:29)
[2021-03-22] MEDS: IPRATROPIUM BR 0.02% INH SOLN 0.5 MG/2.5 ML VIAL INHALATION ×4 (02:02→20:29)
[2021-03-22 04:28] LABS: Hematocrit 43.6 % (42.0-52.0); Hemoglobin 14.3 g/dL (14.0-18.0); Mean Corpuscular HGB Conc 32.8 g/dl (32-36); Mean Corpuscular Hemoglobin 30.8 pg (26-34); Mean Corpuscular Volume 93.8 fl (80-100); Mean Platelet Volume 10.4 fl (7.4-10.4); Platelet Count Result 161 k/mm3 (150-375); Red Blood Count 4.65 M/mm3 (4.6-6.20); Red Cell Distribution Width 12.6 % (11.5-14.5); White Blood Count 10.6 K/mm3 (4.5-10.0)
[2021-03-22] MEDS: PROPOFOL IV EMULSION 100 ML 37.92 MG IV CONT (04:34)
[2021-03-22 04:44] LABS: Lactic Acid Reflex 0.9 mmol/L (0.7-2.1)
[2021-03-22 04:52] LABS: Alanine Aminotransferase 101 U/L (4-50); Alkaline Phosphatase 87 U/L (38-126); Aspartate Amino Transferase 194 U/L (17-59); Bilirubin,Total 0.5 mg/dL (0.2-1.3); Blood Urea Nitrogen 40 mg/dL (9-20); Calcium 9.9 mg/dL (8.4-10.2); Carbon Dioxide > 40 mmol/L (22-30); Chloride 94 mmol/L (98-107); Estimated CRCL calculation 110 ml/min; Estimated Glomerular Filt Rate > 60; Glucose 161 mg/dL (65-110); Magnesium 2.3 mg/dL (1.6-2.3); Phosphorus 2.9 mg/dL (2.5-4.5); Potassium 3.2 mmol/L (3.4-5.0); Sodium 142 mmol/L (137-145)
[2021-03-22 05:01] LABS: Alveolar/Arterial O2 Gradient 194.4 mmHg; Base Excess ABG 12.1 mEq/l (+/-2.0); Carboxyhemoglobin 0.3 % THb (0-2.0); Fractional Inspired Oxygen 45 %; HCO3 ABG 38.1 mEq/l (22.0-26.0); Methemoglobin ABG 0.3 %THb (0-1.5); Oxygen Content ABG 19.6 %vol (16.0-22.0); Oxygen Saturation ABG 93.7 % (95.0-100.0); Oxyhemoglobin 91.9 % THb (90.0-100.0); PCO2 ABG 53.4 mmHg (35.0-45.0); PO2 ABG 65.7 mmHg (80.0-100.0); PO2 FiO2 Ratio Arterial Blood 1.46 %; Reduced Hemoglobin 7.5 %THb (0-5.0); Total Hemoglobin 15.2 g/dL (12.0-18.0); pH ABG 7.471 (7.350-7.450)
[2021-03-22 05:02] LABS: Arterial Blood Gas PEEP 8 cmH2O; Arterial Blood Gas Tidal Volume 500 ml; Arterial Blood Gas Vent Mode CMV; Arterial Blood Gas Ventilator rate 22 /MIN; Device VENTILATOR; Modified Allen's Test Unable to perform; Site Drawn RIGHT RADIAL
[2021-03-22 05:13] LABS: Thyroid Stimulating Hormone Reflex 0.306 uIU/mL (0.465-4.68)
[2021-03-22] MEDS: PROPOFOL IV EMULSION 100 ML 47.4 MG IV CONT ×7 (06:36→21:28)
[2021-03-22 06:47] LABS: Potassium Urine Random 30.8 meq/L
[2021-03-22 07:45] LABS: Free T4 Free Thyroxine Reflex 1.38 ng/dL (0.78-2.19)
[2021-03-22 08:29] LABS: Total Triiodothyronine (T3) 1.23 NG/ML (0.97-1.69)
[2021-03-22] MEDS: ASPIRIN 81 MG CHEWABLE TABLET FEED TUBE (08:32)
[2021-03-22] MEDS: PRAVASTATIN SODIUM 20 MG TABLET FEED TUBE (08:33)
[2021-03-22] MEDS: EZETIMIBE 10 MG TABLET FEED TUBE (08:33)
[2021-03-22] MEDS: PANTOPRAZOLE SODIUM IV 40 MG VIAL IV PUSH (08:37)
[2021-03-22] MEDS: FUROSEMIDE INJ 40 MG/4 ML VIAL IV PUSH ×2 (08:39→20:10)
[2021-03-22] MEDS: ENOXAPARIN 40 MG/0.4 ML SYRINGE SUB-Q (08:39)
[2021-03-22] MEDS: DORNASE ALFA INH SOLN 1 MG/ML 2.5 ML AMP 2.5 MG INHALATION ×2 (08:46→20:38)
[2021-03-22] MEDS: MIDAZOLAM HCL (*CRX) 2 MG/2 ML VIAL IV PUSH ×2 (08:51→17:29)
[2021-03-22] MEDS: POTASSIUM CHLORIDE 20 MEQ PACKET (FOR LIQUID) 40 MEQ PO (09:36)
--- NOTE | 2021-03-22 11:12 | PM.IMPN ---
Progress Note: A&P Assessment and Plan (1) Acute on chronic respiratory failure with hypoxia and hypercapnia: Code(s): J96.21 - Acute and chronic respiratory failure with hypoxia; J96.22 - Acute and chronic respiratory failure with hypercapnia Status: Acute Assessment and Plan: acute hypercapnic respiratory failure could be related to CHF exacerbation, COPD exacerbation, substance abuse - chest x-ray and ABGs reviewed, ventilator adjusted - continue bronchodilators - will add Pulmozyme - sedated with propofol 03/22/2021 Interval history: patient was to acute hypercarbic respiratory failure on ventilator most likely multifactorial secondary to examination of COPD, and CHF as well as hyperventilation secondary to morbid obesity any illicit drug use cocaine, amphetamine and benzodiazepine, patient is being treated ceftriaxone, methylprednisone and duo nebs as well as diuresed with Lasix 40 mg b.i.d. IV, presents seen by Cardiology and rehab specialist and appreciate, will continue to monitor (2) CHF exacerbation: Qualifiers: Heart failure type: unspecified Qualified Code(s): I50.9 - Heart failure, unspecified Code(s): I50.9 - Heart failure, unspecified Status: Acute Assessment and Plan: chest x-ray shows signs of congestive heart failure - patient was given Lasix in the ER - hospitalist has started patient on Lasix q.12 hours - will obtain echocardiogram (3) COPD exacerbation: Code(s): J44.1 - Chronic obstructive pulmonary disease with (acute) exacerbation Status: Acute Assessment and Plan: COPD exacerbation given hypercapnic respiratory failure - currently intubated, ventilator has been adjusted for hypercapnia on ABGs - continue steroid, bronchodilators, will add ceftriaxone - will recheck ABGs this evening (4) Hallucinations: Code(s): R44.3 - Hallucinations, unspecified Status: Acute Assessment and Plan: patient complaining of auditory and visual hallucinations which could be related to substance abuse, hypercapnia - will evaluate patient wants he has extubated and off sedation (5) Nicotine dependence: Code(s): F17.200 - Nicotine dependence, unspecified, uncomplicated Status: Acute Assessment and Plan: patient continues to smoke half a packet per day - once patient is extubated awake will consult him on cessation of smoking and tobacco use (6) Elevated troponin: Code(s): R77.8 - Other specified abnormalities of plasma proteins Status: Acute Assessment and Plan: troponin elevated x1, likely related to respiratory failure, could be related to methamphetamine and adrenergic surge - will trend troponin - EKG did not show any ST elevations (7) Active substance abuse: Code(s): F19.10 - Other psychoactive substance abuse, uncomplicated Status: Acute Assessment and Plan: urine tox screen is positive for amphetamines, benzodiazepines and cocaine (8) DVT prophylaxis: Code(s): Z29.9 - Encounter for prophylactic measures, unspecified Status: Acute Assessment and Plan: DVT prophylaxis: Lovenox SQ stress ulcer prophylaxis: Protonix Subjective Date/time seen: 03/22/21 11:12 Chief Complaint: Shortness of breath. Narrative: This is a 61-year-old male smoker with COPD, chronic respiratory failure on 2 L, hypertension, hyperlipidemia, morbid obesity, and history of illicit substance who presented to the emergency department earlier today via private vehicle for evaluation of shortness of breath. The patient is currently sedated and intubated and is unable to provide any history and as such all of the following is obtained via review his electronic medical records as well as discussions with staff in the emergency department. According to the triage nurse, the patient called his sister this morning crying with reports of shortness of breath hallucinations. ABG done on arriva
--- NOTE | 2021-03-22 12:43 | PM.PNCARD ---
Progress Note: A&P Assessment and Plan (1) Elevated troponin: Code(s): R77.8 - Other specified abnormalities of plasma proteins Status: Acute Assessment and Plan: Very mildly elevated troponin in a patient with apparent CAD. No history of recent chest pain, no ischemic EKG changes. Likely elevated troponin secondary to physiologic stress of tachycardia, respiratory failure, CHF perhaps a component of substance abuse as well. Doubt ACS. Echo pending (2) Acute on chronic diastolic CHF (congestive heart failure): Code(s): I50.33 - Acute on chronic diastolic (congestive) heart failure Status: Acute Assessment and Plan: History of diastolic heart failure, now with a very mildly elevated proBNP but chest x-ray suggestive of CHF (and/or pneumonia). Diuresing well, oxygen requirements declining Continue furosemide 40 mg IV push b.i.d.. Echo pending Cont daily BMP (3) Acute on chronic respiratory failure with hypoxia and hypercapnia: Code(s): J96.21 - Acute and chronic respiratory failure with hypoxia; J96.22 - Acute and chronic respiratory failure with hypercapnia Status: Acute Assessment and Plan: History of COPD with acute on chronic respiratory failure requiring intubation. Continue supportive care per zipper cutter. (4) Coronary artery disease: Qualifiers: Coronary Disease-Associated Artery/Lesion type: unspecified vessel or lesion type [place] vs. transplanted heart: unspecified whether [place] or transplanted heart Associated angina: angina presence unspecified Qualified Code(s): I25.10 - Atherosclerotic heart disease of [place] coronary artery without angina pectoris Code(s): I25.10 - Atherosclerotic heart disease of [place] coronary artery without angina pectoris Status: Acute Assessment and Plan: No records available, nothing in [facility] or Care everywhere. Has received some care from [facility], will see if they have any records. Continue aspirin 81 mg daily, Zetia, pravastatin (5) COPD exacerbation: Code(s): J44.1 - Chronic obstructive pulmonary disease with (acute) exacerbation Status: Acute Assessment and Plan: History of COPD, ongoing smoking, here with an exacerbation. (6) Substance abuse: Code(s): F19.10 - Other psychoactive substance abuse, uncomplicated Status: Acute Assessment and Plan: Drug screen positive for amphetamines, cocaine, benzodiazepines. (7) Hypertension: Qualifiers: Hypertension type: unspecified Qualified Code(s): I10 - Essential (primary) hypertension Code(s): I10 - Essential (primary) hypertension Status: Chronic Assessment and Plan: Controlled at this time. (8) Nicotine dependence: Code(s): F17.200 - Nicotine dependence, unspecified, uncomplicated Status: Acute Assessment and Plan: Subjective Date/time seen: 03/22/21 12:43 Interval history: Follow-up acute diastolic heart failure, respiratory failure with pneumonia, mildly elevated troponins 2nd to physiologic stress, h/o CAD, substance abuse.. Date of service 03/22/2021: Remains on ventilator and sedated, FiO2 45%. Diuresing well today. Review of Systems Review of Systems: ROS obtained fr EMR ROS unobtainable: Yes unobtainable due to endotracheal tube and unobtainable due to mental status Constitutional: Constitutional: Reports no additional constitutional complaints Eyes: Eyes: Reports no additional eye complaints ENT: Reports system reviewed and no additional complaints, except as documented Cardiovascular: Cardiovascular: Reports no additional cardiovascular complaints Respiratory: Respiratory: Reports no additional respiratory complaints Gastrointestinal: Gastrointestinal: Reports no additional gastrointestina
--- NOTE | 2021-03-22 14:07 | WPDINTPN ---
Progress Note: A&P Assessment and Plan (1) Acute on chronic respiratory failure with hypoxia and hypercapnia: Code(s): J96.21 - Acute and chronic respiratory failure with hypoxia; J96.22 - Acute and chronic respiratory failure with hypercapnia Status: Acute Assessment and Plan: acute hypercapnic respiratory failure could be related to CHF exacerbation, COPD exacerbation, substance abuse, aspiration - chest x-ray and ABGs reviewed, ventilator adjusted -continue CMV mode of ventilation, peep of 8 in 45% FiO2, wean FiO2 maintain O2 sats greater than 92% - continue bronchodilators -continue Pulmozyme - sedated with propofol (2) CHF exacerbation: Qualifiers: Heart failure type: unspecified Qualified Code(s): I50.9 - Heart failure, unspecified Code(s): I50.9 - Heart failure, unspecified Status: Acute Assessment and Plan: chest x-ray shows signs of congestive heart failure - patient was given Lasix in the ER -patient cardiology evaluation recommendations, -echocardiogram has been ordered- -continue Lasix (3) COPD exacerbation: Code(s): J44.1 - Chronic obstructive pulmonary disease with (acute) exacerbation Status: Acute Assessment and Plan: COPD exacerbation given hypercapnic respiratory failure - currently intubated, ventilator has been adjusted for hypercapnia on ABGs - continue steroid, bronchodilators, continue ceftriaxone -ABG much improved, (4) Hallucinations: Code(s): R44.3 - Hallucinations, unspecified Status: Acute Assessment and Plan: patient complaining of auditory and visual hallucinations which could be related to substance abuse, hypercapnia - will evaluate patient wants he has extubated and off sedation (5) Nicotine dependence: Code(s): F17.200 - Nicotine dependence, unspecified, uncomplicated Status: Acute Assessment and Plan: patient continues to smoke half a packet per day - once patient is extubated awake will consult him on cessation of smoking and tobacco use (6) Elevated troponin: Code(s): R77.8 - Other specified abnormalities of plasma proteins Status: Acute Assessment and Plan: troponin elevated x1, likely related to respiratory failure, could be related to methamphetamine and adrenergic surge -minimal elevation of troponin likely related to respiratory failure, tachycardia, substance abuse -cardiology following the patient - EKG not suggestive of ischemic changes (7) Active substance abuse: Code(s): F19.10 - Other psychoactive substance abuse, uncomplicated Status: Acute Assessment and Plan: urine tox screen is positive for amphetamines, benzodiazepines and cocaine (8) DVT prophylaxis: Code(s): Z29.9 - Encounter for prophylactic measures, unspecified Status: Acute Assessment and Plan: DVT prophylaxis: Lovenox SQ stress ulcer prophylaxis: Protonix Additional Plan code status: Full code Critical time spent: 34 minutes This dictation may have been done utilizing a voice recognition system. Attempts have been made to correct errors. However, there may be uncorrected grammatical, spelling, and recognition errors present. Due to a high probability of clinically significant, life threatening deterioration, the patient required my highest level of preparedness to intervene emergently and I personally spent this critical care time directly and personally managing the patient. This critical care time included obtaining a history; examining the patient; pulse oximetry; ordering and review of studies; arranging urgent treatment with development of a management plan; evaluation of patient's response to treatment; frequent reassessment; and discussions with other providers. It was exclusive of separately billable procedures and treating other patients and teaching time. Please see Assessment and Plan section and the rest of the note for further
[2021-03-22] MEDS: MIDAZOLAM 100MG/NS 100ML(*CRX) 100 MG/100 ML BAG IV CONT (17:28)
[2021-03-23] VITALS (43 sets, daily range): BP systolic 126–144; BP diastolic 67–82; PULSE 80–114; RESP 22–32; TEMP 36.4–37.1; O2SAT 90–97; BMI 52.7
[2021-03-23] MEDS: methylPREDNISolone SOD SUCC 40 MG VIAL IV PUSH ×4 (00:57→18:12)
[2021-03-23] MEDS: PROPOFOL IV EMULSION 100 ML 47.4 MG IV CONT ×10 (01:40→22:28)
[2021-03-23] MEDS: IPRATROPIUM BR 0.02% INH SOLN 0.5 MG/2.5 ML VIAL INHALATION ×4 (02:35→20:39)
[2021-03-23] MEDS: ALBUTEROL SULFATE NEB 2.5 MG/0.5 ML INH 5 MG INHALATION ×4 (02:35→20:40)
[2021-03-23 04:37] LABS: Hematocrit 46.4 % (42.0-52.0); Hemoglobin 15.4 g/dL (14.0-18.0); Mean Corpuscular HGB Conc 33.2 g/dl (32-36); Mean Corpuscular Hemoglobin 30.7 pg (26-34); Mean Corpuscular Volume 92.6 fl (80-100); Mean Platelet Volume 10.4 fl (7.4-10.4); Platelet Count Result 177 k/mm3 (150-375); Red Blood Count 5.01 M/mm3 (4.6-6.20); Red Cell Distribution Width 12.6 % (11.5-14.5); White Blood Count 13.4 K/mm3 (4.5-10.0)
[2021-03-23 05:01] LABS: Alveolar/Arterial O2 Gradient 162.2 mmHg; Base Excess ABG 13.6 mEq/l (+/-2.0); Carboxyhemoglobin 0.5 % THb (0-2.0); Fractional Inspired Oxygen 40 %; HCO3 ABG 39.1 mEq/l (22.0-26.0); Methemoglobin ABG 0.3 %THb (0-1.5); Oxygen Content ABG 19.7 %vol (16.0-22.0); PCO2 ABG 50.8 mmHg (35.0-45.0); PO2 ABG 64.6 mmHg (80.0-100.0); PO2 FiO2 Ratio Arterial Blood 1.62 %; Reduced Hemoglobin 8.2 %THb (0-5.0); Total Hemoglobin 15.4 g/dL (12.0-18.0)
[2021-03-23 05:03] LABS: pH ABG 7.504 (7.350-7.450)
[2021-03-23 05:04] LABS: Arterial Blood Gas Vent Mode CMV; Arterial Blood Gas Ventilator rate 22 /MIN; Device VENTILATOR; Modified Allen's Test Pass; Site Drawn RIGHT RADIAL
[2021-03-23 05:05] LABS: Arterial Blood Gas PEEP 8 cmH2O; Arterial Blood Gas Tidal Volume 500 ml
[2021-03-23 05:37] LABS: Alanine Aminotransferase 85 U/L (4-50); Alkaline Phosphatase 84 U/L (38-126); Aspartate Amino Transferase 94 U/L (17-59); Bilirubin,Total 0.6 mg/dL (0.2-1.3); Blood Urea Nitrogen 55 mg/dL (9-20); Calcium 9.4 mg/dL (8.4-10.2); Carbon Dioxide > 40 mmol/L (22-30); Chloride 92 mmol/L (98-107); Estimated CRCL calculation 91 ml/min; Estimated Glomerular Filt Rate > 60; Glucose 164 mg/dL (65-110); Magnesium 2.4 mg/dL (1.6-2.3); Phosphorus 3.9 mg/dL (2.5-4.5); Potassium 3.1 mmol/L (3.4-5.0); Sodium 142 mmol/L (137-145)
[2021-03-23] MEDS: PRAVASTATIN SODIUM 20 MG TABLET FEED TUBE (08:15)
[2021-03-23] MEDS: EZETIMIBE 10 MG TABLET FEED TUBE (08:15)
[2021-03-23] MEDS: ENOXAPARIN 40 MG/0.4 ML SYRINGE SUB-Q (08:15)
[2021-03-23] MEDS: FUROSEMIDE INJ 40 MG/4 ML VIAL IV PUSH ×2 (08:15→20:30)
[2021-03-23] MEDS: PANTOPRAZOLE SODIUM IV 40 MG VIAL IV PUSH (08:15)
[2021-03-23] MEDS: ASPIRIN 81 MG CHEWABLE TABLET FEED TUBE (08:20)
[2021-03-23] MEDS: POTASSIUM CHLORIDE 20 MEQ PACKET (FOR LIQUID) 40 MEQ FEED TUBE ×2 (08:20→09:42)
[2021-03-23] MEDS: DORNASE ALFA INH SOLN 1 MG/ML 2.5 ML AMP 2.5 MG INHALATION ×2 (09:30→20:40)
[2021-03-23] MEDS: MIDAZOLAM 100MG/NS 100ML(*CRX) 100 MG/100 ML BAG 6 MG IV CONT (09:35)
--- NOTE | 2021-03-23 09:39 | PM.PNCARD ---
Progress Note: A&P Assessment and Plan (1) Elevated troponin: Code(s): R77.8 - Other specified abnormalities of plasma proteins Status: Acute Assessment and Plan: Most likely type 2 infarct secondary to demand ischemia in a patient with apparent CAD. No reported recent chest pain, no ischemic EKG changes. Likely elevated troponin secondary to physiologic stress of tachycardia, respiratory failure, CHF perhaps a component of substance abuse as well. Doubt ACS. Echo pending. Will review when available with recommendation to follow as appropriate. (2) Acute on chronic diastolic CHF (congestive heart failure): Code(s): I50.33 - Acute on chronic diastolic (congestive) heart failure Status: Acute Assessment and Plan: History of diastolic heart failure, now with a very mildly elevated proBNP but chest x-ray suggestive of CHF (and/or pneumonia). Diuresing well, oxygen requirements declining Continue furosemide 40 mg IV push b.i.d.. Stable at present. -3.7 L reported thus far. Echo pending Cont daily BMP BUN with significant elevation. Anticipate will need to back off on IV diuresis within the next 24 hours. Hypokalemic with potassium at 3.1 this morning. Replete keep around 4.0. Magnesium stable at 2.4. AST ALT elevation with significant improvement since admission. (3) Acute on chronic respiratory failure with hypoxia and hypercapnia: Code(s): J96.21 - Acute and chronic respiratory failure with hypoxia; J96.22 - Acute and chronic respiratory failure with hypercapnia Status: Acute Assessment and Plan: History of COPD with acute on chronic respiratory failure requiring intubation. Continue supportive care per shredding machine tender. Possible extubation attempt today per Critical Care. (4) Coronary artery disease: Qualifiers: Coronary Disease-Associated Artery/Lesion type: unspecified vessel or lesion type [place] vs. transplanted heart: unspecified whether [place] or transplanted heart Associated angina: angina presence unspecified Qualified Code(s): I25.10 - Atherosclerotic heart disease of [place] coronary artery without angina pectoris Code(s): I25.10 - Atherosclerotic heart disease of [place] coronary artery without angina pectoris Status: Acute Assessment and Plan: No records available, nothing in [facility] or Care everywhere. Has received some care from [place], will see if they have any records. Continue aspirin 81 mg daily, Zetia, pravastatin (5) Substance abuse: Code(s): F19.10 - Other psychoactive substance abuse, uncomplicated Status: Acute Assessment and Plan: Drug screen positive for amphetamines, cocaine, benzodiazepines. Absolute abstinence. (6) Hypertension: Qualifiers: Hypertension type: unspecified Qualified Code(s): I10 - Essential (primary) hypertension Code(s): I10 - Essential (primary) hypertension Status: Chronic Assessment and Plan: Controlled at this time. (7) COPD exacerbation: Code(s): J44.1 - Chronic obstructive pulmonary disease with (acute) exacerbation Status: Acute Assessment and Plan: History of COPD, ongoing smoking, here with an exacerbation. (8) Nicotine dependence: Code(s): F17.200 - Nicotine dependence, unspecified, uncomplicated Status: Acute Assessment and Plan: Subjective Date/time seen: Date of service: 03/23/21 09:39 Interval history: Follow-up acute diastolic heart failure, respiratory failure with pneumonia, mildly elevated troponins 2nd to physiologic stress, h/o CAD, substance abuse.. Pt unable to provide any history as he remains intubated, FiO2 down to 35%. No new issues overnight per nursing staff. Plans for possible extubation today. Hemodynamically stable. Unable to obtain
--- NOTE | 2021-03-23 13:35 | WPDINTPN ---
Progress Note: A&P Assessment and Plan (1) Acute on chronic respiratory failure with hypoxia and hypercapnia: Code(s): J96.21 - Acute and chronic respiratory failure with hypoxia; J96.22 - Acute and chronic respiratory failure with hypercapnia Status: Acute Assessment and Plan: acute hypercapnic respiratory failure could be related to CHF exacerbation, COPD exacerbation, substance abuse, aspiration - chest x-ray today: Persistent opacities at the left lung base which could represent atelectasis, pneumonia, small left pleural effusion or some combination thereof - ABGs reviewed, ventilator adjusted -continue CMV mode of ventilation, peep of 8 in 40% FiO2, wean FiO2 maintain O2 sats greater than 92% - continue bronchodilators -continue Pulmozyme - sedated with propofol and Versed (2) CHF exacerbation: Qualifiers: Heart failure type: unspecified Qualified Code(s): I50.9 - Heart failure, unspecified Code(s): I50.9 - Heart failure, unspecified Status: Acute Assessment and Plan: chest x-ray shows signs of congestive heart failure - patient was given Lasix in the ER -patient cardiology evaluation recommendations, -continue Lasix Echocardiogram 03/23/2021: LV systolic function is normal EF of 60-65%, grade 1 diastolic dysfunction (3) COPD exacerbation: Code(s): J44.1 - Chronic obstructive pulmonary disease with (acute) exacerbation Status: Acute Assessment and Plan: COPD exacerbation given hypercapnic respiratory failure - currently intubated, ventilator has been adjusted for hypercapnia on ABGs - continue steroid, bronchodilators, continue ceftriaxone -ABG much improved, (4) Hallucinations: Code(s): R44.3 - Hallucinations, unspecified Status: Acute Assessment and Plan: patient complaining of auditory and visual hallucinations which could be related to substance abuse, hypercapnia - will evaluate patient wants he has extubated and off sedation (5) Nicotine dependence: Code(s): F17.200 - Nicotine dependence, unspecified, uncomplicated Status: Acute Assessment and Plan: patient continues to smoke half a packet per day - once patient is extubated awake will consult him on cessation of smoking and tobacco use (6) Elevated troponin: Code(s): R77.8 - Other specified abnormalities of plasma proteins Status: Acute Assessment and Plan: troponin elevated x1, likely related to respiratory failure, could be related to methamphetamine and adrenergic surge -minimal elevation of troponin likely related to respiratory failure, tachycardia, substance abuse -cardiology following the patient - EKG not suggestive of ischemic changes (7) Active substance abuse: Code(s): F19.10 - Other psychoactive substance abuse, uncomplicated Status: Acute Assessment and Plan: urine tox screen is positive for amphetamines, benzodiazepines and cocaine (8) DVT prophylaxis: Code(s): Z29.9 - Encounter for prophylactic measures, unspecified Status: Acute Assessment and Plan: DVT prophylaxis: Lovenox SQ stress ulcer prophylaxis: Protonix Additional Plan code status: Full code Critical time spent: 32 minutes This dictation may have been done utilizing a voice recognition system. Attempts have been made to correct errors. However, there may be uncorrected grammatical, spelling, and recognition errors present. Due to a high probability of clinically significant, life threatening deterioration, the patient required my highest level of preparedness to intervene emergently and I personally spent this critical care time directly and personally managing the patient. This critical care time included obtaining a history; examining the patient; pulse oximetry; ordering and review of studies; arranging urgent treatment with development of a management plan; evaluation of patient's response to treatment;
--- NOTE | 2021-03-23 13:58 | ECHO_ITS ---
Patient Info Name: Jarek Machado Age: 61 years : 1960 Gender: Male Ht: 66 in Wt: 348 lbs BSA: 2.81 m2 HR: 88 bpm BP: 138 / 81 mmHg Heart Rhythm: Sinus Rhythm Exam Date: 03/23/2021 8:49 AM Exam Location: [facility] Patient Status: Inpatient Admit Date: 03/21/2021 Staff Ordering Physician: Sussy Bird PA-C Director Call: Edwar Menjivar RDCS, RT Attending Provider: Nona Francisco MD Referring Physician: Pelon HIDALGO; Exam Type: CA echo doppler color flow Study Info Indications I50.9 - Heart failure, unspecified Complete two-dimensional, color flow and Doppler transthoracic echocardiogram is performed with contrast to opacify the left ventricle and to improve the deliniation of the left ventricle endocardial borders. Summary 1. Technically difficult study with limited views despite definity echo contrast enhancement. Although no clear wall motion abnormalities identified,regional wall motion assessment limited due to poor endomyocardial border definition. 2. Left ventricular chamber dimension is normal. 3. Left ventricular systolic function is normal, estimated at 60-65%. 4. There is moderately increased left ventricular wall thickness. 5. The left ventricular diastolic function is grade I diastolic dysfunction. 6. There is mild tricuspid valve regurgitation. 7. Unable to assess PA systolic pressure due to poor spectral resolution of tricuspid regurgitant jet velocity. 8. Dilated inferior vena cava with no collapse upon inspiration consistent with significantly elevated right atrial pressure, 15 mmHg. Left Ventricle Left ventricular chamber dimension is normal. Left ventricular systolic function is normal, estimated at 60-65%. There is moderately increased left ventricular wall thickness. The left ventricular diastolic function is grade I diastolic dysfunction. Technically difficult study with limited views despite definity echo contrast enhancement. Although no clear wall motion abnormalities identified,regional wall motion assessment limited due to poor endomyocardial border definition. Right Ventricle Right ventricular chamber dimension is mildly enlarged. Right ventricular systolic function is normal. Left Atria Left atrial chamber dimension is normal. Right Atria Right atrial chamber dimension is normal. Aortic Valve The aortic valve is not well visualized. There is no aortic valve stenosis. There is no aortic valve regurgitation. Pulmonic Valve The pulmonic valve is not well visualized. Mitral Valve The mitral valve has normal leaflets. There is trace mitral valve regurgitation. Tricuspid Valve The tricuspid valve leaflets are not well visualized. There is mild tricuspid valve regurgitation. Unable to assess PA systolic pressure due to poor spectral resolution of tricuspid regurgitant jet velocity. Pericardium/Pleural The pericardium appears epicardial fat pad. There is small pericardial effusion. Inferior Vena Cava Dilated inferior vena cava with no collapse upon inspiration consistent with significantly elevated right atrial pressure, 15 mmHg. Aorta The aortic root size at the sinus of Valsalva is normal. There is mild aortic atherosclerosis. Left Ventricular Outflow Tract Name Value Normal LVOT 2D
[2021-03-23] MEDS: fentaNYL CITRATE INJ (*CRX) 100 MCG/2 ML VIAL IV PUSH (22:13)
[2021-03-24] VITALS (44 sets, daily range): BP systolic 116–134; BP diastolic 68–78; PULSE 102–121; RESP 18–30; TEMP 36.3–37.4; O2SAT 90–97
[2021-03-24] MEDS: methylPREDNISolone SOD SUCC 40 MG VIAL IV PUSH ×4 (00:23→21:12)
[2021-03-24] MEDS: PROPOFOL IV EMULSION 100 ML 47.4 MG IV CONT ×12 (00:27→23:15)
[2021-03-24] MEDS: IPRATROPIUM BR 0.02% INH SOLN 0.5 MG/2.5 ML VIAL INHALATION ×4 (01:58→20:54)
[2021-03-24] MEDS: ALBUTEROL SULFATE NEB 2.5 MG/0.5 ML INH 5 MG INHALATION ×4 (01:58→20:54)
[2021-03-24] MEDS: fentaNYL CITRATE INJ (*CRX) 100 MCG/2 ML VIAL IV PUSH (02:37)
[2021-03-24 05:43] LABS: Hematocrit 51.7 % (42.0-52.0); Hemoglobin 16.2 g/dL (14.0-18.0); Mean Corpuscular HGB Conc 31.3 g/dl (32-36); Mean Corpuscular Hemoglobin 31.1 pg (26-34); Mean Corpuscular Volume 99.2 fl (80-100); Mean Platelet Volume 10.6 fl (7.4-10.4); Platelet Count Result 166 k/mm3 (150-375); Red Blood Count 5.21 M/mm3 (4.6-6.20); Red Cell Distribution Width 13.2 % (11.5-14.5); White Blood Count 17.8 K/mm3 (4.5-10.0)
[2021-03-24 05:46] LABS: Alveolar/Arterial O2 Gradient 193.7 mmHg; Base Excess ABG 12.2 mEq/l (+/-2.0); Carboxyhemoglobin 0.4 % THb (0-2.0); Device VENTILATOR; Fractional Inspired Oxygen 45 %; HCO3 ABG 38.9 mEq/l (22.0-26.0); Methemoglobin ABG 0.4 %THb (0-1.5); Modified Allen's Test Pass; Oxygen Saturation ABG 92.4 % (95.0-100.0); Oxyhemoglobin 89.6 % THb (90.0-100.0); PCO2 ABG 56.9 mmHg (35.0-45.0); PO2 ABG 62.4 mmHg (80.0-100.0); PO2 FiO2 Ratio Arterial Blood 1.39 %; Reduced Hemoglobin 9.6 %THb (0-5.0); Site Drawn LEFT RADIAL; Total Hemoglobin 15.9 g/dL (12.0-18.0); pH ABG 7.453 (7.350-7.450)
[2021-03-24 05:47] LABS: Arterial Blood Gas PEEP 8 cmH2O; Arterial Blood Gas Tidal Volume 500 ml; Arterial Blood Gas Vent Mode CMV; Arterial Blood Gas Ventilator rate 22 /MIN
[2021-03-24 05:58] LABS: Alanine Aminotransferase 66 U/L (4-50); Albumin Level 4.2 g/dL (3.5-5.1); Alkaline Phosphatase 90 U/L (38-126); Aspartate Amino Transferase 43 U/L (17-59); Bilirubin,Total 0.7 mg/dL (0.2-1.3); Blood Urea Nitrogen 56 mg/dL (9-20); Calcium 9.5 mg/dL (8.4-10.2); Carbon Dioxide > 40 mmol/L (22-30); Chloride 93 mmol/L (98-107); Estimated CRCL calculation 88 ml/min; Estimated Glomerular Filt Rate > 60; Glucose 186 mg/dL (65-110); Magnesium 2.9 mg/dL (1.6-2.3); Phosphorus 5.5 mg/dL (2.5-4.5); Potassium 4.1 mmol/L (3.4-5.0); Sodium 143 mmol/L (137-145)
[2021-03-24] MEDS: PRAVASTATIN SODIUM 20 MG TABLET FEED TUBE (08:09)
[2021-03-24] MEDS: FUROSEMIDE INJ 40 MG/4 ML VIAL IV PUSH ×2 (08:09→22:14)
[2021-03-24] MEDS: PANTOPRAZOLE SODIUM IV 40 MG VIAL IV PUSH (08:09)
[2021-03-24] MEDS: ENOXAPARIN 40 MG/0.4 ML SYRINGE SUB-Q (08:09)
[2021-03-24] MEDS: EZETIMIBE 10 MG TABLET FEED TUBE (08:10)
[2021-03-24] MEDS: MIDAZOLAM 100MG/NS 100ML(*CRX) 100 MG/100 ML BAG 6 MG IV CONT (08:12)
[2021-03-24] MEDS: ASPIRIN 81 MG CHEWABLE TABLET FEED TUBE (08:12)
[2021-03-24] MEDS: DORNASE ALFA INH SOLN 1 MG/ML 2.5 ML AMP 2.5 MG INHALATION ×2 (08:20→20:54)
--- NOTE | 2021-03-24 09:11 | PM.PNCARD ---
Progress Note: A&P Assessment and Plan (1) Elevated troponin: Code(s): R77.8 - Other specified abnormalities of plasma proteins Status: Acute Assessment and Plan: Likely type 2 [place] in the setting of respiratory failure, CHF, substance abuse. LV systolic function normal on echocardiogram. (2) Acute on chronic diastolic CHF (congestive heart failure): Code(s): I50.33 - Acute on chronic diastolic (congestive) heart failure Status: Acute Assessment and Plan: History of diastolic heart failure, now with a very mildly elevated proBNP but chest x-ray suggestive of CHF (and/or pneumonia). Continue diuresis as needed. Monitor renal function. Supplement potassium. (3) Acute on chronic respiratory failure with hypoxia and hypercapnia: Code(s): J96.21 - Acute and chronic respiratory failure with hypoxia; J96.22 - Acute and chronic respiratory failure with hypercapnia Status: Acute Assessment and Plan: History of COPD with acute on chronic respiratory failure requiring intubation. Continue supportive care per legal collector. (4) Substance abuse: Code(s): F19.10 - Other psychoactive substance abuse, uncomplicated Status: Acute Assessment and Plan: Drug screen positive for amphetamines, cocaine, benzodiazepines. Absolute abstinence. Subjective Date/time seen: 03/24/21 09:11 Interval history: Reason for consult: Acute hypercapnic respiratory failure, COPD exacerbation, drug abuse 03/23/2021: Patient seen and examined the ICU, remains intubated on CMV mode of ventilation, peep of 8, 40% FiO2. Patient is sedated propofol and Versed infusion. Does not open his eyes or follow simple commands. Hemodynamically stable, urine output has been adequate urine. If T is trending down, low potassium level this morning. Tolerating tube feeds Date of Service: 03/24/2021-patient is intubated and sedated. On telemetry, he is in sinus tachycardia with heart rates in 120s. Exam Narrative: PHYSICAL EXAMINATION: GENERAL: Sedated, obese MENTAL STATUS: Unresponsive, sedated EYES: Eyes closed EARS: External ears appear normal NOSE: Normal and patent, no discharge MOUTH: Orotracheal and OG tube in place NECK: Thick neck CHEST: Bilateral vent sounds HEART: Tachycardia, regular ABDOMEN: Soft NEUROLOGICAL: Unresponsive, sedated MUSCULOSKELETAL: No major deformity, no amputation EXTREMITIES: Pedal edema SKIN: no cyanosis PSYCHIATRIC: Unresponsive Objective Data Vital Signs Vital Signs: Vital Signs - 24 hr 03/23/21 09:30 03/23/21 09:34 03/23/21 09:35 Temperature Pulse Rate 86 89 95 Respiratory Rate 22 H 22 H Blood Pressure Pulse Oximetry 96 03/23/21 09:46 03/23/21 09:56 03/23/21 10:00 Temperature Pulse Rate 87 88 88 Respiratory Rate 22 H 22 H 22 H Blood Pressure 130/67 Pulse Oximetry 94 03/23/21 11:14 03/23/21 11:23 03/23/21 12:00 Temperature 36.4 C Pulse Rate 85 87 88 Respiratory Rate 22 H 22 H Blood Pressure 126/71 Pulse Oximetry 93 93 94 03/23/21 12:03 03/23/21 12:04 03/23/21 14:00 Temperature Pulse Rate 87 87 95 Respiratory Rate 22 H 22 H 22 H Blood Pressure 144/76 H Pulse Oximetry 95 03/23/21 14:05 03/23/21 14:35 03/23/21 14:36 Temperature Pulse Rate 98 91 85 Respiratory Rate 22 H 22 H Blood Pressure Pulse Oximetry 93 03/23/21 14:42 03/23/21 15:24 03/23/21 16:00 Temperature 36.4 C L Pulse Rate 92 92 94 Respiratory Rate 22 H 22 H 22 H Blood Pressure 138/74 Pulse Oximetry 91 94 03/23/21 16:12 03/23/21 16:21 03/23/21 16:40 Temperature Pulse Rate 97 97 114 H Respiratory Rate 22 H 22 H Blood Pressure Pulse Oximetry 94 03/23/21 18:00 03/23/21 18:11 03/23/21 20:00 Temperature 37.1 C Pulse Rate 106 H 102 H 108 H Respiratory Rate 22 H 22 H 22 H Blood Pressure 141/77 H 141/78 H Pulse Oximetry 94 92 03/23/21 20:18 03/23/21
--- NOTE | 2021-03-24 11:50 | PCDIET ---
Nutrition Follow-Up Complete: Nutrition Diagnosis: Inadequate oral intake related to oral intubation as evidenced by need for enteral feeding. Nutrition Goal: Patient to meet estimated nutritional needs. Goal not met. Tube feedings held overnight for 500mL residual. Recommended decreasing goal rate due to plan to continue Propofol. Jevity 1.2 at 40mL/hr would provide 1056kcal (2307kcal with Propofol at current rate) and 48g protein over 22 hours/day. MD anticipating extubation within the next couple of days. If unable to extubate within 24-48 hours, suggest also changing formula for higher protein content (Vital HP). Last recorded weight is 144.9 kg which is down from last review. -I/O. Bowel Motility: No documented BM as of yet. Labs Reviewed: WBC (17.8), Glu (186), BUN (56), PO4 (5.5), Mg (2.9) Meds Noted: Propofol (rate of 47.4mL/hr provides 1251kcal per day), Albuterol, Symbicort, Rocephin, Pulmozyme, Zetia, Fentanyl, Lasix, Atrovent, Solu Medrol, Versed, Protonix, Pravastatin Additional Notes: No documented skin breakdown. Will continue to monitor with same goal. Nutrition Monitoring and Evaluation: Follow up every Tuesday/Tuesday.
--- NOTE | 2021-03-24 12:03 | WPDINTPN ---
Progress Note: A&P Assessment and Plan (1) Acute on chronic respiratory failure with hypoxia and hypercapnia: Code(s): J96.21 - Acute and chronic respiratory failure with hypoxia; J96.22 - Acute and chronic respiratory failure with hypercapnia Status: Acute Assessment and Plan: acute hypercapnic respiratory failure could be related to CHF exacerbation, COPD exacerbation, substance abuse, aspiration - chest x-ray reviewed - ABGs reviewed-decrease tidal volume to 450 and rate to 18 -continue CMV mode of ventilation, - continue bronchodilators -continue Pulmozyme - sedated with propofol and Versed -continue diuresis with Lasix (2) CHF exacerbation: Qualifiers: Heart failure type: unspecified Qualified Code(s): I50.9 - Heart failure, unspecified Code(s): I50.9 - Heart failure, unspecified Status: Acute Assessment and Plan: chest x-ray shows signs of congestive heart failure -Cardiology following -continue Lasix Echocardiogram 03/23/2021: LV systolic function is normal EF of 60-65%, grade 1 diastolic dysfunction (3) COPD exacerbation: Code(s): J44.1 - Chronic obstructive pulmonary disease with (acute) exacerbation Status: Acute Assessment and Plan: COPD exacerbation given hypercapnic respiratory failure - currently intubated, ventilator has been adjusted for hypercapnia on ABGs - continue steroid -decrease dose -continue bronchodilators ceftriaxone -ABG much improved, (4) Elevated troponin: Code(s): R77.8 - Other specified abnormalities of plasma proteins Status: Acute Assessment and Plan: troponin elevated x1, likely related to respiratory failure, could be related to methamphetamine and adrenergic surge -minimal elevation of troponin likely related to respiratory failure, tachycardia, substance abuse -cardiology following the patient - EKG not suggestive of ischemic changes (5) Active substance abuse: Code(s): F19.10 - Other psychoactive substance abuse, uncomplicated Status: Acute Assessment and Plan: urine tox screen is positive for amphetamines, benzodiazepines and cocaine (6) DVT prophylaxis: Code(s): Z29.9 - Encounter for prophylactic measures, unspecified Status: Acute Assessment and Plan: DVT prophylaxis: Lovenox SQ stress ulcer prophylaxis: Protonix (7) Nicotine dependence: Code(s): F17.200 - Nicotine dependence, unspecified, uncomplicated Status: Acute Assessment and Plan: patient continues to smoke half a packet per day Patient is currently intubated and not a candidate for smoking cessation counseling Additional Plan code status: Full code Critical time spent: 35 minutes This dictation may have been done utilizing a voice recognition system. Attempts have been made to correct errors. However, there may be uncorrected grammatical, spelling, and recognition errors present. Due to a high probability of clinically significant, life threatening deterioration, the patient required my highest level of preparedness to intervene emergently and I personally spent this critical care time directly and personally managing the patient. This critical care time included obtaining a history; examining the patient; pulse oximetry; ordering and review of studies; arranging urgent treatment with development of a management plan; evaluation of patient's response to treatment; frequent reassessment; and discussions with other providers. It was exclusive of separately billable procedures and treating other patients and teaching time. Please see Assessment and Plan section and the rest of the note for further information on patient assessment and treatment Subjective Date/time seen: 03/24/21 12:03 Overnight events reviewed. Afebrile Continues to be on mechanical ventilation. 45% FiO2 and 8 of PEEP Continues to be on sedation Vitals acceptable Adequate urine output Emily
--- NOTE | 2021-03-24 15:39 | PM.IMPN ---
Progress Note: A&P Assessment and Plan (1) Acute on chronic respiratory failure with hypoxia and hypercapnia: Code(s): J96.21 - Acute and chronic respiratory failure with hypoxia; J96.22 - Acute and chronic respiratory failure with hypercapnia Status: Acute Assessment and Plan: acute hypercapnic respiratory failure could be related to CHF exacerbation, COPD exacerbation, substance abuse - chest x-ray and ABGs reviewed, ventilator adjusted - continue bronchodilators - will add Pulmozyme - sedated with propofol 03/22/2021 Interval history: patient was to acute hypercarbic respiratory failure on ventilator most likely multifactorial secondary to examination of COPD, and CHF as well as hyperventilation secondary to morbid obesity any illicit drug use cocaine, amphetamine and benzodiazepine, patient is being treated ceftriaxone, methylprednisone and duo nebs as well as diuresed with Lasix 40 mg b.i.d. IV, presents seen by Cardiology and weight loss centre manager and appreciate, will continue to monitor 03/24/2021 continue diuresis for CHF and steroid treatment as ordered mechanical ventilation per weight loss centre manager (2) CHF exacerbation: Qualifiers: Heart failure type: unspecified Qualified Code(s): I50.9 - Heart failure, unspecified Code(s): I50.9 - Heart failure, unspecified Status: Acute Assessment and Plan: chest x-ray shows signs of congestive heart failure - patient was given Lasix in the ER - hospitalist has started patient on Lasix q.12 hours -echocardiogram with normal ejection fraction of 66 5%, grade 1 diastolic dysfunction no significant valvular abnormalities (3) COPD exacerbation: Code(s): J44.1 - Chronic obstructive pulmonary disease with (acute) exacerbation Status: Acute Assessment and Plan: COPD exacerbation given hypercapnic respiratory failure - currently intubated, ventilator has been adjusted for hypercapnia on ABGs - continue steroid, bronchodilators, will add ceftriaxone - (4) Hallucinations: Code(s): R44.3 - Hallucinations, unspecified Status: Acute Assessment and Plan: patient complaining of auditory and visual hallucinations which could be related to substance abuse, hypercapnia - will evaluate patient wants he has extubated and off sedation (5) Nicotine dependence: Code(s): F17.200 - Nicotine dependence, unspecified, uncomplicated Status: Acute Assessment and Plan: patient continues to smoke half a packet per day - once patient is extubated awake will consult him on cessation of smoking and tobacco use (6) Elevated troponin: Code(s): R77.8 - Other specified abnormalities of plasma proteins Status: Acute Assessment and Plan: troponin elevated x1, likely related to respiratory failure, could be related to methamphetamine and adrenergic surge - will trend troponin - EKG did not show any ST elevations Cardiology following likely type 2 TN (7) Active substance abuse: Code(s): F19.10 - Other psychoactive substance abuse, uncomplicated Status: Acute Assessment and Plan: urine tox screen is positive for amphetamines, benzodiazepines and cocaine (8) DVT prophylaxis: Code(s): Z29.9 - Encounter for prophylactic measures, unspecified Status: Acute Assessment and Plan: DVT prophylaxis: Lovenox SQ stress ulcer prophylaxis: Protonix Subjective Date/time seen: 03/24/21 15:39 Interval history: Chief Complaint: Shortness of breath. HPI Narrative: This is a 61-year-old male smoker with COPD, chronic respiratory failure on 2 L, hypertension, hyperlipidemia, morbid obesity, and history of illicit substance who presented to the emergency department earlier today via private vehicle for evaluation of shortness of breath. The patient is currently sedated and intubated and is unable to provide any history and as such all of the following is obtained via review his electr
[2021-03-25] VITALS (52 sets, daily range): BP systolic 120–170; BP diastolic 67–92; PULSE 107–143; RESP 18–30; TEMP 36.8–38.5; O2SAT 91–93
[2021-03-25] MEDS: PROPOFOL IV EMULSION 100 ML 47.4 MG IV CONT ×4 (01:33→07:41)
[2021-03-25] MEDS: MIDAZOLAM 100MG/NS 100ML(*CRX) 100 MG/100 ML BAG 6 MG IV CONT (01:34)
[2021-03-25] MEDS: IPRATROPIUM BR 0.02% INH SOLN 0.5 MG/2.5 ML VIAL INHALATION ×4 (02:50→20:59)
[2021-03-25] MEDS: ALBUTEROL SULFATE NEB 2.5 MG/0.5 ML INH 5 MG INHALATION ×4 (02:50→20:58)
[2021-03-25 04:50] LABS: Hematocrit 46.4 % (42.0-52.0); Hemoglobin 14.3 g/dL (14.0-18.0); Mean Corpuscular HGB Conc 30.8 g/dl (32-36); Mean Corpuscular Volume 100.4 fl (80-100); Mean Platelet Volume 10.4 fl (7.4-10.4); Platelet Count Result 157 k/mm3 (150-375); Red Blood Count 4.62 M/mm3 (4.6-6.20); Red Cell Distribution Width 13.2 % (11.5-14.5); White Blood Count 21.6 K/mm3 (4.5-10.0)
[2021-03-25 05:02] LABS: Alveolar/Arterial O2 Gradient 209.3 mmHg; Base Excess ABG 14.5 mEq/l (+/-2.0); Carboxyhemoglobin 0.5 % THb (0-2.0); Fractional Inspired Oxygen 50 %; HCO3 ABG 43.4 mEq/l (22.0-26.0); Methemoglobin ABG 0.3 %THb (0-1.5); Oxygen Content ABG 18.7 %vol (16.0-22.0); Oxygen Saturation ABG 91.3 % (95.0-100.0); Oxyhemoglobin 89.4 % THb (90.0-100.0); PO2 ABG 64.3 mmHg (80.0-100.0); PO2 FiO2 Ratio Arterial Blood 1.29 %; Reduced Hemoglobin 9.8 %THb (0-5.0); Total Hemoglobin 14.9 g/dL (12.0-18.0); pH ABG 7.388 (7.350-7.450)
[2021-03-25 05:04] LABS: Device VENTILATOR; Modified Allen's Test Unable to perform; PCO2 ABG 73.7 mmHg (35.0-45.0); Site Drawn RIGHT RADIAL
[2021-03-25 05:05] LABS: Arterial Blood Gas PEEP 8 cmH2O; Arterial Blood Gas Tidal Volume 450 ml; Arterial Blood Gas Vent Mode CMV; Arterial Blood Gas Ventilator rate 18 /MIN
[2021-03-25 05:21] LABS: Alanine Aminotransferase 42 U/L (4-50); Albumin Level 3.7 g/dL (3.5-5.1); Alkaline Phosphatase 75 U/L (38-126); Aspartate Amino Transferase 21 U/L (17-59); Bilirubin,Total 0.6 mg/dL (0.2-1.3); Blood Urea Nitrogen 61 mg/dL (9-20); Calcium 8.9 mg/dL (8.4-10.2); Carbon Dioxide > 40 mmol/L (22-30); Chloride 94 mmol/L (98-107); Estimated CRCL calculation 79 ml/min; Estimated Glomerular Filt Rate > 60; Glucose 200 mg/dL (65-110); Magnesium 3.2 mg/dL (1.6-2.3); Phosphorus 5.2 mg/dL (2.5-4.5); Potassium 4.1 mmol/L (3.4-5.0); Sodium 143 mmol/L (137-145)
--- NOTE | 2021-03-25 06:21 | PC.NURSE ---
Versed gtt titrated down to 4mg/hr
[2021-03-25] MEDS: ASPIRIN 81 MG CHEWABLE TABLET FEED TUBE (07:42)
[2021-03-25] MEDS: ENOXAPARIN 40 MG/0.4 ML SYRINGE SUB-Q (07:42)
[2021-03-25] MEDS: PRAVASTATIN SODIUM 20 MG TABLET FEED TUBE (07:43)
[2021-03-25] MEDS: FUROSEMIDE INJ 40 MG/4 ML VIAL IV PUSH ×2 (07:43→20:36)
[2021-03-25] MEDS: PANTOPRAZOLE SODIUM IV 40 MG VIAL IV PUSH (07:43)
[2021-03-25] MEDS: EZETIMIBE 10 MG TABLET FEED TUBE (07:43)
[2021-03-25] MEDS: methylPREDNISolone SOD SUCC 40 MG VIAL IV PUSH (07:43)
[2021-03-25] MEDS: DORNASE ALFA INH SOLN 1 MG/ML 2.5 ML AMP 2.5 MG INHALATION ×2 (09:07→20:58)
--- NOTE | 2021-03-25 12:00 | WPDINTPN ---
Progress Note: A&P Assessment and Plan (1) Acute on chronic respiratory failure with hypoxia and hypercapnia: Code(s): J96.21 - Acute and chronic respiratory failure with hypoxia; J96.22 - Acute and chronic respiratory failure with hypercapnia Status: Acute Assessment and Plan: acute hypercapnic respiratory failure could be related to CHF exacerbation, COPD exacerbation, substance abuse, aspiration - chest x-ray reviewed - ABGs reviewed-decrease tidal volume to 450 and rate to 18 peep is at 8 and FiO2 50% -continue CMV mode of ventilation, - continue bronchodilators -continue Pulmozyme - sedated with propofol and Versed. will perform sedation holiday and evaluate for breathing trial -continue diuresis with Lasix (2) CHF exacerbation: Qualifiers: Heart failure type: unspecified Qualified Code(s): I50.9 - Heart failure, unspecified Code(s): I50.9 - Heart failure, unspecified Status: Acute Assessment and Plan: chest x-ray shows signs of congestive heart failure -Cardiology following -continue Lasix Echocardiogram 03/23/2021: LV systolic function is normal EF of 60-65%, grade 1 diastolic dysfunction (3) COPD exacerbation: Code(s): J44.1 - Chronic obstructive pulmonary disease with (acute) exacerbation Status: Acute Assessment and Plan: COPD exacerbation given hypercapnic respiratory failure - currently intubated, ventilator has been adjusted for hypercapnia on ABGs - continue steroid - change to daily in a.m. does -continue bronchodilators, - continue ceftriaxone for 7 days -ABG much improved, (4) Elevated troponin: Code(s): R77.8 - Other specified abnormalities of plasma proteins Status: Acute Assessment and Plan: troponin elevated x1, likely related to respiratory failure, could be related to methamphetamine and adrenergic surge -minimal elevation of troponin likely related to respiratory failure, tachycardia, substance abuse -cardiology following the patient - EKG not suggestive of ischemic changes (5) Active substance abuse: Code(s): F19.10 - Other psychoactive substance abuse, uncomplicated Status: Acute Assessment and Plan: urine tox screen is positive for amphetamines, benzodiazepines and cocaine (6) DVT prophylaxis: Code(s): Z29.9 - Encounter for prophylactic measures, unspecified Status: Acute Assessment and Plan: DVT prophylaxis: Lovenox SQ stress ulcer prophylaxis: Protonix (7) Nicotine dependence: Code(s): F17.200 - Nicotine dependence, unspecified, uncomplicated Status: Acute Assessment and Plan: patient continues to smoke half a packet per day Patient is currently intubated and not a candidate for smoking cessation counseling Additional Plan code status: Full code continue to feeding Critical time spent: 32 minutes This dictation may have been done utilizing a voice recognition system. Attempts have been made to correct errors. However, there may be uncorrected grammatical, spelling, and recognition errors present. Due to a high probability of clinically significant, life threatening deterioration, the patient required my highest level of preparedness to intervene emergently and I personally spent this critical care time directly and personally managing the patient. This critical care time included obtaining a history; examining the patient; pulse oximetry; ordering and review of studies; arranging urgent treatment with development of a management plan; evaluation of patient's response to treatment; frequent reassessment; and discussions with other providers. It was exclusive of separately billable procedures and treating other patients and teaching time. Please see Assessment and Plan section and the rest of the note for further information on patient assessment and treatment Subjective Date/time seen: 03/25/21 12:00 Overnight events reviewed. A
[2021-03-25 12:22] LABS: Glucose Point of Care 189 mg/dl (65-105)
--- NOTE | 2021-03-25 12:23 | PCDIET ---
Nutrition Follow-Up Complete: Nutrition Diagnosis: Inadequate oral intake related to oral intubation as evidenced by need for enteral feeding. Nutrition Goal: Patient to meet estimated nutritional needs. Goal in progress. Patient with fair tolerance to Jevity 1.2 at 40mL/hr with 30mL water flush every 4 hours. Residuals 250mL and below. If Propofol remains off, would increase Jevity 1.2 toward goal of 65mL/hr which will provide 1716kcal, 79g protein and 1154mL free water over 22 hours/day. Last recorded weight is 142.4 kg which is down from last review. -I/O. Bowel Motility: No documented BM. If medically appropriate, would consider adding medication to promote BM. Labs Reviewed: WBC (21.6), Glu (200), BUN (61), PO4 (5.2), Mg (3.2) Meds Noted: Lasix, Atrovent, Albuterol, Rocephin, Pulmozyme, Zetia, Solu Medrol, Versed, Protonix, Pravastatin Additional Notes: No documented skin breakdown. Will continue to monitor with same goal. Nutrition Monitoring and Evaluation: Follow up every Tuesday/Tuesday.
[2021-03-25 12:53] LABS: NT Pro B Type Natriuretic Pept 136 pg/mL (5-100)
[2021-03-25 17:34] LABS: Glucose Point of Care 185 mg/dl (65-105)
[2021-03-25] MEDS: fentaNYL CITRATE INJ (*CRX) 100 MCG/2 ML VIAL 50 MCG IV PUSH (19:40)
[2021-03-25] MEDS: PROPOFOL IV EMULSION 100 ML 4.74 MG IV CONT (20:46)
[2021-03-25] MEDS: ACETAMINOPHEN 325 MG TABLET 650 MG PO (20:54)
[2021-03-26] VITALS (37 sets, daily range): BP systolic 123–153; BP diastolic 71–84; PULSE 101–142; RESP 18–32; TEMP 36.9–39.1; O2SAT 90–96
[2021-03-26 00:27] LABS: Glucose Point of Care 144 mg/dl (65-105)
[2021-03-26] MEDS: ACETAMINOPHEN ELIXIR 325 MG/10.15 ML UDC 650 MG PO ×3 (00:43→11:30)
[2021-03-26] MEDS: PROPOFOL IV EMULSION 100 ML 28.44 MG IV CONT ×6 (00:59→19:43)
[2021-03-26] MEDS: fentaNYL CITRATE INJ (*CRX) 100 MCG/2 ML VIAL 50 MCG IV PUSH (01:05)
[2021-03-26] MEDS: ALBUTEROL SULFATE NEB 2.5 MG/0.5 ML INH 5 MG INHALATION (02:53)
[2021-03-26] MEDS: IPRATROPIUM BR 0.02% INH SOLN 0.5 MG/2.5 ML VIAL INHALATION (02:54)
[2021-03-26 04:35] LABS: Hematocrit 49.7 % (42.0-52.0); Hemoglobin 14.9 g/dL (14.0-18.0); Mean Corpuscular Hemoglobin 30.2 pg (26-34); Mean Corpuscular Volume 100.8 fl (80-100); Mean Platelet Volume 10.6 fl (7.4-10.4); Platelet Count Result 168 k/mm3 (150-375); Red Blood Count 4.93 M/mm3 (4.6-6.20); Red Cell Distribution Width 13.5 % (11.5-14.5); White Blood Count 16.7 K/mm3 (4.5-10.0)
[2021-03-26 04:54] LABS: Alveolar/Arterial O2 Gradient 212.2 mmHg; Carboxyhemoglobin 0.1 % THb (0-2.0); Fractional Inspired Oxygen 50 %; HCO3 ABG 46.4 mEq/l (22.0-26.0); Methemoglobin ABG 0.4 %THb (0-1.5); Oxygen Content ABG 19.9 %vol (16.0-22.0); Oxygen Saturation ABG 89.8 % (95.0-100.0); Oxyhemoglobin 89.3 % THb (90.0-100.0); PO2 ABG 59.7 mmHg (80.0-100.0); PO2 FiO2 Ratio Arterial Blood 1.19 %; Reduced Hemoglobin 10.2 %THb (0-5.0); Total Hemoglobin 15.9 g/dL (12.0-18.0); pH ABG 7.408 (7.350-7.450)
[2021-03-26 04:55] LABS: Alanine Aminotransferase 32 U/L (4-50); Albumin Level 3.8 g/dL (3.5-5.1); Alkaline Phosphatase 88 U/L (38-126); Aspartate Amino Transferase 22 U/L (17-59); Bilirubin,Total 0.6 mg/dL (0.2-1.3); Blood Urea Nitrogen 66 mg/dL (9-20); Calcium 9.7 mg/dL (8.4-10.2); Carbon Dioxide > 40 mmol/L (22-30); Chloride 98 mmol/L (98-107); Estimated CRCL calculation 79 ml/min; Estimated Glomerular Filt Rate > 60; Glucose 251 mg/dL (65-110); Magnesium 3.3 mg/dL (1.6-2.3); Phosphorus 3.2 mg/dL (2.5-4.5); Potassium 3.4 mmol/L (3.4-5.0); Sodium 149 mmol/L (137-145)
[2021-03-26 04:55] LABS: PCO2 ABG 75.2 mmHg (35.0-45.0)
[2021-03-26 04:56] LABS: Arterial Blood Gas PEEP 8 cmH2O; Arterial Blood Gas Vent Mode CMV; Arterial Blood Gas Ventilator rate 18 /MIN; Device VENTILATOR; Modified Allen's Test Pass; Site Drawn RIGHT RADIAL
[2021-03-26 04:57] LABS: Arterial Blood Gas Tidal Volume 450 ml
[2021-03-26] MEDS: INSULIN ASPART (*BKC) 100 UNITS/ML SUB-Q ×3 (06:45→17:41)
[2021-03-26] MEDS: ENOXAPARIN 40 MG/0.4 ML SYRINGE SUB-Q (08:16)
[2021-03-26] MEDS: EZETIMIBE 10 MG TABLET FEED TUBE (08:16)
[2021-03-26] MEDS: PRAVASTATIN SODIUM 20 MG TABLET FEED TUBE (08:16)
[2021-03-26] MEDS: PANTOPRAZOLE SODIUM IV 40 MG VIAL IV PUSH (08:17)
[2021-03-26] MEDS: methylPREDNISolone SOD SUCC 125 MG VIAL 60 MG IV PUSH (08:18)
[2021-03-26] MEDS: DORNASE ALFA INH SOLN 1 MG/ML 2.5 ML AMP 2.5 MG INHALATION (08:21)
[2021-03-26] MEDS: SODIUM CHLORIDE 0.9% IV 500 ML IV CONT (08:43)
[2021-03-26] MEDS: ASPIRIN 81 MG CHEWABLE TABLET FEED TUBE (08:47)
[2021-03-26 09:22] LABS: Lipase 46 U/L (23-300)
[2021-03-26 09:56] LABS: Add Urine Microscopic? YES; Appearance Urine Cloudy (Clear); Bacteria Urine Trace /hpf; Bilirubin Urine Negative (Negative); Blood Urine 2+ (Negative); Color Urine Yellow (Yellow); Glucose Urine UA Negative (Negative); Ketones Urine Negative (Negative); Leukocyte Esterase Ur Negative LEU/UL (Negative); Mucus Urine Rare /lpf; Nitrate Urine Negative (Negative); Protein Urine 2+ mg/dL (Negative); RBC Urine >75 /hpf (0-2); Squamous Epithelial Cell Urine Occasional /hpf (Few)
--- NOTE | 2021-03-26 10:48 | PCDIET ---
Nutrition Follow-Up Complete: Nutrition Diagnosis: Inadequate oral intake related to oral intubation as evidenced by need for enteral feeding. Nutrition Goal: Patient to meet estimated nutritional needs. Goal in progress. Patient tolerating Jevity 1.2 at 40mL/hr with 30mL water flush every 4 hours. Propofol has been resumed. Given elevated blood sugars, recommend change to Glucerna 1.2 at 40mL/hr with 30mL water flush every 4 hours. Last recorded weight is 141.9 kg which is down from last review. -I/O. Bowel Motility: No documented BM. If medically appropriate, recommend adding medication to promote BM. Labs Reviewed: WBC (16.7), Glu (251), BUN (66), Na (149), Mg (3.3) Meds Noted: Propofol (rate of 23.7mL/hr provides 625kcal per day), Albuterol, Symbicort, Maxipime, Rocephin, Zetia, Fentanyl, Novolog, 500mL NS bolus, Atrovent, Solu Medrol, Protonix, Pravastatin, Vancomycin Additional Notes: No documented skin breakdown. Will continue to monitor with same goal. Nutrition Monitoring and Evaluation: Follow up every Tuesday/Tuesday.
[2021-03-26 11:53] LABS: Glucose Point of Care 241 mg/dl (65-105)
--- NOTE | 2021-03-26 14:57 | WPDINTPN ---
Progress Note: A&P Assessment and Plan (1) Acute on chronic respiratory failure with hypoxia and hypercapnia: Code(s): J96.21 - Acute and chronic respiratory failure with hypoxia; J96.22 - Acute and chronic respiratory failure with hypercapnia Status: Acute Assessment and Plan: acute hypercapnic respiratory failure could be related to CHF exacerbation, COPD exacerbation, substance abuse, aspiration - chest x-ray reviewed - ABGs reviewed - patient hypercarbic at baseline CT Chest 03/26 IMPRESSION: 1. Bilateral dependent opacities of the lungs and patchy opacities of the upper lobes, consistent with atelectasis and pneumonia. 2. Mediastinal lymphadenopathy, likely reactive. -continue CMV mode of ventilation, - continue bronchodilators with change to p.r.n. due to tachycardia -continue Pulmozyme - sedated with propofol and Versed. will perform sedation holiday and evaluate for breathing trial - hold Lasix at this point as patient may be intravascularly volume depleted (2) CHF exacerbation: Qualifiers: Heart failure type: unspecified Qualified Code(s): I50.9 - Heart failure, unspecified Code(s): I50.9 - Heart failure, unspecified Status: Acute Assessment and Plan: chest x-ray shows signs of congestive heart failure -Cardiology following hold Lasix at this time Echocardiogram 03/23/2021: LV systolic function is normal EF of 60-65%, grade 1 diastolic dysfunction. Dilated inferior vena cava with no collapse upon inspiration consistent with significantly elevated right atrial pressure, 15 mmHg. (3) COPD exacerbation: Code(s): J44.1 - Chronic obstructive pulmonary disease with (acute) exacerbation Status: Acute Assessment and Plan: COPD exacerbation given hypercapnic respiratory failure - currently intubated, ventilator has been adjusted for hypercapnia on ABGs - continue steroid - change to daily in a.m. does -continue bronchodilators, - continue ceftriaxone for 7 days -ABG much improved, (4) Elevated troponin: Code(s): R77.8 - Other specified abnormalities of plasma proteins Status: Acute Assessment and Plan: troponin elevated x1, likely related to respiratory failure, could be related to methamphetamine and adrenergic surge -minimal elevation of troponin likely related to respiratory failure, tachycardia, substance abuse -cardiology following the patient - EKG not suggestive of ischemic changes (5) Active substance abuse: Code(s): F19.10 - Other psychoactive substance abuse, uncomplicated Status: Acute Assessment and Plan: urine tox screen is positive for amphetamines, benzodiazepines and cocaine (6) DVT prophylaxis: Code(s): Z29.9 - Encounter for prophylactic measures, unspecified Status: Acute Assessment and Plan: DVT prophylaxis: Lovenox SQ stress ulcer prophylaxis: Protonix (7) Nicotine dependence: Code(s): F17.200 - Nicotine dependence, unspecified, uncomplicated Status: Acute Assessment and Plan: patient continues to smoke half a packet per day Patient is currently intubated and not a candidate for smoking cessation counseling (8) Fever: Code(s): R50.9 - Fever, unspecified Status: Acute Assessment and Plan: patient febrile overnight although his WBC is improving CT chest ordered and reviewed will repeat sputum blood culture and check UA with reflex culture expand antibiotic coverage to vancomycin and cefepime check lipase Additional Plan code status: Full code continue tube feeding Critical time spent: 35 minutes This dictation may have been done utilizing a voice recognition system. Attempts have been made to correct errors. However, there may be uncorrected grammatical, spelling, and recognition errors present. Due to a high probability of clinically significant, life threatening deterioration, the patient required my highest lev
[2021-03-26 17:27] LABS: Glucose Point of Care 250 mg/dl (65-105)
[2021-03-27] VITALS (31 sets, daily range): BP systolic 115–155; BP diastolic 71–92; PULSE 102–133; RESP 18–32; TEMP 37.2–37.9; O2SAT 90–98
[2021-03-27] MEDS: PROPOFOL IV EMULSION 100 ML 28.44 MG IV CONT ×2 (00:06→04:00)
[2021-03-27 00:14] LABS: Glucose Point of Care 170 mg/dl (65-105)
[2021-03-27 04:37] LABS: Alveolar/Arterial O2 Gradient 168.7 mmHg; Base Excess ABG 15.3 mEq/l (+/-2.0); Carboxyhemoglobin 0.5 % THb (0-2.0); Fractional Inspired Oxygen 45 %; HCO3 ABG 44.4 mEq/l (22.0-26.0); Methemoglobin ABG 0.4 %THb (0-1.5); Oxygen Saturation ABG 92.9 % (95.0-100.0); PO2 ABG 68.5 mmHg (80.0-100.0); PO2 FiO2 Ratio Arterial Blood 1.52 %; Reduced Hemoglobin 7.1 %THb (0-5.0); Total Hemoglobin 15.5 g/dL (12.0-18.0); pH ABG 7.399 (7.350-7.450)
[2021-03-27 04:39] LABS: Device VENTILATOR; Modified Allen's Test Pass; PCO2 ABG 73.5 mmHg (35.0-45.0); Site Drawn RIGHT RADIAL
[2021-03-27 04:40] LABS: Arterial Blood Gas PEEP 8 cmH2O; Arterial Blood Gas Tidal Volume 450 ml; Arterial Blood Gas Vent Mode CMV; Arterial Blood Gas Ventilator rate 18 /MIN
[2021-03-27] MEDS: ASPIRIN 81 MG CHEWABLE TABLET FEED TUBE (08:04)
[2021-03-27] MEDS: EZETIMIBE 10 MG TABLET FEED TUBE (08:04)
[2021-03-27] MEDS: PRAVASTATIN SODIUM 20 MG TABLET FEED TUBE (08:04)
[2021-03-27 08:09] LABS: Hematocrit 48.5 % (42.0-52.0); Hemoglobin 14.4 g/dL (14.0-18.0); Mean Corpuscular HGB Conc 29.7 g/dl (32-36); Mean Corpuscular Hemoglobin 30.3 pg (26-34); Mean Corpuscular Volume 102.1 fl (80-100); Mean Platelet Volume 10.6 fl (7.4-10.4); Platelet Count Result 164 k/mm3 (150-375); Red Blood Count 4.75 M/mm3 (4.6-6.20); Red Cell Distribution Width 13.3 % (11.5-14.5); White Blood Count 17.1 K/mm3 (4.5-10.0)
[2021-03-27] MEDS: PANTOPRAZOLE SODIUM IV 40 MG VIAL IV PUSH (08:17)
[2021-03-27] MEDS: methylPREDNISolone SOD SUCC 125 MG VIAL 60 MG IV PUSH (08:17)
[2021-03-27] MEDS: ENOXAPARIN 40 MG/0.4 ML SYRINGE SUB-Q (08:29)
[2021-03-27 08:44] LABS: Alanine Aminotransferase 33 U/L (4-50); Albumin Level 3.2 g/dL (3.5-5.1); Alkaline Phosphatase 91 U/L (38-126); Aspartate Amino Transferase 39 U/L (17-59); Bilirubin,Total 0.5 mg/dL (0.2-1.3); Blood Urea Nitrogen 57 mg/dL (9-20); Calcium 9.7 mg/dL (8.4-10.2); Carbon Dioxide > 40 mmol/L (22-30); Chloride 103 mmol/L (98-107); Estimated CRCL calculation 115 ml/min; Estimated Glomerular Filt Rate > 60; Glucose 181 mg/dL (65-110); Potassium 4.3 mmol/L (3.4-5.0); Sodium 150 mmol/L (137-145)
--- NOTE | 2021-03-27 11:11 | PCDIET ---
Nutrition Follow-Up Complete: Nutrition Diagnosis: Inadequate oral intake related to oral intubation as evidenced by need for enteral feeding. Nutrition Goal: Patient to meet estimated nutritional needs. Goal in progress. RN reports patient currently tolerating Jevity 1.2 at 40mL/hr goal rate. Noted tube feedings were held overnight for 500mL residual. Recommend increasing water flush from 30mL to 100mL every 4 hours. If unable to increase tube feeding rate due to continued use of Propofol, would consider adding Pro-Stat BID for additional 200kcal and 30g protein per day. Last recorded weight is 141.9 kg which is stable with last review. Bowel Motility: No documented BM. MD adding PRN Dulcolax and Miralax. Labs Reviewed: WBC (17.1), Glu (181), Na (150), Alb (3.2) Meds Noted: Propofol (rate of 23.7mL/hr provides 625kcal per day), Novolog, Solu Medrol, Symbicort, Cefepime, Zetia, Sublimaze, Vancomycin, Versed, Protonix, Pravastatin Additional Notes: Plan for SBT today. No documented skin breakdown. Will continue to monitor with same goal. Nutrition Monitoring and Evaluation: Follow up every Tuesday/Tuesday.
--- NOTE | 2021-03-27 11:20 | WPDINTPN ---
Progress Note: A&P Assessment and Plan (1) Acute on chronic respiratory failure with hypoxia and hypercapnia: Code(s): J96.21 - Acute and chronic respiratory failure with hypoxia; J96.22 - Acute and chronic respiratory failure with hypercapnia Status: Acute Assessment and Plan: acute hypercapnic respiratory failure could be related to CHF exacerbation, COPD exacerbation, substance abuse, aspiration - chest x-ray reviewed - ABGs reviewed - patient hypercarbic at baseline CT Chest 03/26 IMPRESSION: 1. Bilateral dependent opacities of the lungs and patchy opacities of the upper lobes, consistent with atelectasis and pneumonia. 2. Mediastinal lymphadenopathy, likely reactive. -continue CMV mode of ventilation. - continue bronchodilators with change to p.r.n. due to tachycardia -continue Pulmozyme - sedated with propofol and Versed. will perform sedation holiday and evaluate for breathing trial - hold Lasix at this point as patient may be intravascularly volume depleted (2) Fever: Code(s): R50.9 - Fever, unspecified Status: Acute Assessment and Plan: patient febrile overnight 03/26 although his WBC were improving CT chest was done and reviewed UA was negative for any evidence of infection sputum and blood culture sent continue expanded antibiotic coverage to vancomycin and cefepime normal lipase (3) CHF exacerbation: Qualifiers: Heart failure type: unspecified Qualified Code(s): I50.9 - Heart failure, unspecified Code(s): I50.9 - Heart failure, unspecified Status: Acute Assessment and Plan: chest x-ray shows signs of congestive heart failure -Cardiology following hold Lasix at this time Echocardiogram 03/23/2021: LV systolic function is normal EF of 60-65%, grade 1 diastolic dysfunction. Dilated inferior vena cava with no collapse upon inspiration consistent with significantly elevated right atrial pressure, 15 mmHg. (4) COPD exacerbation: Code(s): J44.1 - Chronic obstructive pulmonary disease with (acute) exacerbation Status: Acute Assessment and Plan: COPD exacerbation given hypercapnic respiratory failure - currently intubated, ventilator has been adjusted for hypercapnia on ABGs - continue steroid - changed to daily a.m. does -continue bronchodilators, - his antibiotics were expanded to vancomycin and cefepime -ABG much improved, (5) Elevated troponin: Code(s): R77.8 - Other specified abnormalities of plasma proteins Status: Acute Assessment and Plan: troponin elevated x1, likely related to respiratory failure, could be related to methamphetamine and adrenergic surge -minimal elevation of troponin likely related to respiratory failure, tachycardia, substance abuse -cardiology following the patient - EKG not suggestive of ischemic changes (6) Active substance abuse: Code(s): F19.10 - Other psychoactive substance abuse, uncomplicated Status: Acute Assessment and Plan: urine tox screen is positive for amphetamines, benzodiazepines and cocaine (7) DVT prophylaxis: Code(s): Z29.9 - Encounter for prophylactic measures, unspecified Status: Acute Assessment and Plan: DVT prophylaxis: Lovenox SQ stress ulcer prophylaxis: Protonix (8) Nicotine dependence: Code(s): F17.200 - Nicotine dependence, unspecified, uncomplicated Status: Acute Assessment and Plan: patient continues to smoke half a packet per day Patient is currently intubated and not a candidate for smoking cessation counseling Additional Plan code status: Full code continue tube feeding Critical time spent: 30 minutes This dictation may have been done utilizing a voice recognition system. Attempts have been made to correct errors. However, there may be uncorrected grammatical, spelling, and recognition errors present. Due to a high probability of clinically significant, life thr
--- NOTE | 2021-03-27 11:35 | PM.PNCARD ---
Progress Note: A&P Additional Plan 61-year-old man with: Troponin elevation related to hypoxemia which was the result of illicit drug abuse at the time of admission. No other evidence of a acute coronary syndrome. No plans to proceed with ischemic evaluation according to notes that for that reason I will sign off of his case at this time. Please contact Cardiology if our input is needed after this. Kiran Jeffrey MD [facility] Subjective Date/time seen: Date of service: 03/27/21 11:35 Interval history: 61-year-old man with: Elevated troponin level in the setting of illicit drug abuse and respiratory arrest prompting intubation. In the setting of hypoxemia troponin levels were sampled and were elevated prompting consultation. Patient is still in the ICU intubated. He is doing better staff anticipate possibly attempting extubation in the next 24-48 hours. Patient is intubated alert and does follow command Exam Const: General: comfortable and no acute distress HENMT: Mouth: Yes moist mucous membranes Eyes: Sclera: sclerae normal Pupils: Equal, round and reactive pupils present Neck: Neck: supple and no JVD Resp: Effort & Inspection: normal respiratory effort Auscultation: clear to auscultation bilaterally Cardio: Rate: tachycardic Rhythm: regular rhythm Other: No murmur no gallop GI: GI Palp: Yes Soft to palpation Auscultation: normal bowel sounds : Male General Exam: Yes normal external exam Skin: General skin exam: normal color Neuro: Other: Intubated Extrem: General: normal to inspection Objective Data Vital Signs Vital Signs: Vital Signs - 24 hr 03/26/21 12:00 03/26/21 12:25 03/26/21 12:30 Temperature 38.7 C H 38.7 C H Pulse Rate 130 H 125 H Respiratory Rate 20 Blood Pressure Pulse Oximetry 93 91 03/26/21 12:46 03/26/21 14:00 03/26/21 14:12 Temperature Pulse Rate 126 H 119 H 112 H Respiratory Rate 27 H 32 H Blood Pressure 142/83 H Pulse Oximetry 95 94 03/26/21 15:23 03/26/21 16:00 03/26/21 16:25 Temperature 38.2 C H Pulse Rate 115 H 110 H 119 H Respiratory Rate 30 H Blood Pressure 139/78 Pulse Oximetry 95 94 03/26/21 16:33 03/26/21 17:43 03/26/21 19:50 Temperature 37.8 C H Pulse Rate 121 H 115 H 116 H Respiratory Rate 32 H 31 H Blood Pressure 139/74 Pulse Oximetry 95 95 03/26/21 20:00 03/26/21 22:00 03/26/21 22:24 Temperature 36.9 C Pulse Rate 106 H 101 H 109 H Respiratory Rate 22 H 22 H Blood Pressure 123/81 128/71 Pulse Oximetry 95 94 96 03/26/21 22:50 03/27/21 00:00 03/27/21 00:06 Temperature Pulse Rate 101 H 115 H 104 H Respiratory Rate 24 H 21 H Blood Pressure 134/75 Pulse Oximetry 93 93 03/27/21 01:33 03/27/21 02:00 03/27/21 03:37 Temperature 37.4 C Pulse Rate 109 H 108 H 103 H Respiratory Rate 18 21 H Blood Pressure 153/89 H Pulse Oximetry 94 94 03/27/21 04:00 03/27/21 04:20 03/27/21 05:11 Temperature 37.5 C Pulse Rate 103 H 111 H 102 H Respiratory Rate 21 H 24 H Blood Pressure 141/81 H Pulse Oximetry 93 93 03/27/21 06:00 03/27/21 08:00 03/27/21 08:03 Temperature 37.2 C 37.3 C Pulse Rate 105 H 120 H 117 H Respiratory Rate 28 H 28 H 26 H Blood Pressure 133/71 115/75 Pulse Oximetry 98 93 03/27/21 08:22 03/27/21 10:00 03/27/21 10:56 Temperature Pulse Rate 122 H 119 H 131 H Respiratory Rate 28 H Blood Pressure 146/81 H Pulse Oximetry 93 91 88 L Intake/Output Intake/Output: Intake & Output 03/24/21 03/25/21 03/26/21 03/27/21 23:59 23:59 23:59 23:59 Intake Total 1865 164 2847 1268 Output Total 3390 7488 2879 1000 Balance -185 -1051 -28 268 Meds/Results Medications: Active Medications Generic Name Dose Route Start Last Admin Trade Name Freq PRN Reason Stop Dose Admin Acetaminophen 650 mg 03/25/21 23:47 03/26/21 11:30 Acetaminophen Elixir 325 Mg/10.15 Ml Udc PO 650 mg Q4H PRN Administration Mild Pain (1-3) or Fever Al
[2021-03-27 11:40] LABS: Glucose Point of Care 211 mg/dl (65-105)
[2021-03-27] MEDS: INSULIN ASPART (*BKC) 100 UNITS/ML SUB-Q (11:41)
[2021-03-27] MEDS: ACETAMINOPHEN ELIXIR 325 MG/10.15 ML UDC 650 MG PO ×2 (11:41→17:12)
[2021-03-27] MEDS: polyethylene glycoL 3350 17 GM POWD.PACK PO (11:41)
[2021-03-27 12:29] LABS: Alveolar/Arterial O2 Gradient 170.5 mmHg; Base Excess ABG 12.3 mEq/l (+/-2.0); Fractional Inspired Oxygen 45 %; HCO3 ABG 41.7 mEq/l (22.0-26.0); Oxygen Content ABG 19.5 %vol (16.0-22.0); Oxygen Saturation ABG 90.9 % (95.0-100.0); PO2 ABG 64.7 mmHg (80.0-100.0); PO2 FiO2 Ratio Arterial Blood 1.44 %; Total Hemoglobin 15.4 g/dL (12.0-18.0); pH ABG 7.361 (7.350-7.450)
[2021-03-27 12:32] LABS: PCO2 ABG 75.3 mmHg (35.0-45.0)
[2021-03-27 12:33] LABS: Device VENTILATOR; Modified Allen's Test Pass; Site Drawn LEFT RADIAL
[2021-03-27 12:34] LABS: Arterial Blood Gas PEEP 5 cmH2O; Arterial Blood Gas Pressure Support 5 cmH2O; Arterial Blood Gas Vent Mode SPONTANEOUS
[2021-03-27 17:10] LABS: Glucose Point of Care 192 mg/dl (65-105)
[2021-03-27] MEDS: PROPOFOL IV EMULSION 100 ML 9.48 MG IV CONT (20:00)
[2021-03-27 23:26] LABS: Glucose Point of Care 192 mg/dl (65-105)
[2021-03-28] VITALS (23 sets, daily range): BP systolic 106–149; BP diastolic 69–88; PULSE 103–133; RESP 18–30; TEMP 37.3–38.3; O2SAT 87–96
[2021-03-28] MEDS: PROPOFOL IV EMULSION 100 ML 18.96 MG IV CONT ×2 (00:41→04:42)
[2021-03-28 05:24] LABS: Hematocrit 50.9 % (42.0-52.0); Mean Corpuscular HGB Conc 29.5 g/dl (32-36); Mean Corpuscular Hemoglobin 30.1 pg (26-34); Mean Platelet Volume 10.8 fl (7.4-10.4); Platelet Count Result 185 k/mm3 (150-375); Red Blood Count 4.99 M/mm3 (4.6-6.20); Red Cell Distribution Width 13.5 % (11.5-14.5); White Blood Count 11.2 K/mm3 (4.5-10.0)
[2021-03-28 05:28] LABS: Alveolar/Arterial O2 Gradient 188.4 mmHg; Base Excess ABG 11.3 mEq/l (+/-2.0); Carboxyhemoglobin 0.6 % THb (0-2.0); Fractional Inspired Oxygen 45 %; HCO3 ABG 38.7 mEq/l (22.0-26.0); Methemoglobin ABG 0.3 %THb (0-1.5); Oxygen Content ABG 19.9 %vol (16.0-22.0); PO2 ABG 63.2 mmHg (80.0-100.0); Reduced Hemoglobin 11.1 %THb (0-5.0); Total Hemoglobin 16.1 g/dL (12.0-18.0); pH ABG 7.421 (7.350-7.450)
[2021-03-28 05:30] LABS: Arterial Blood Gas Vent Mode CMV; Arterial Blood Gas Ventilator rate 18 /MIN; Device VENTILATOR; Modified Allen's Test Pass; PCO2 ABG 60.9 mmHg (35.0-45.0); Site Drawn LEFT RADIAL
[2021-03-28 05:31] LABS: Arterial Blood Gas PEEP 8 cmH2O; Arterial Blood Gas Tidal Volume 450 ml
[2021-03-28 05:59] LABS: Alanine Aminotransferase 49 U/L (4-50); Albumin Level 3.7 g/dL (3.5-5.1); Alkaline Phosphatase 95 U/L (38-126); Aspartate Amino Transferase 48 U/L (17-59); Bilirubin,Total 0.4 mg/dL (0.2-1.3); Blood Urea Nitrogen 60 mg/dL (9-20); Calcium 10.2 mg/dL (8.4-10.2); Carbon Dioxide > 40 mmol/L (22-30); Chloride 104 mmol/L (98-107); Estimated CRCL calculation 93 ml/min; Estimated Glomerular Filt Rate > 60; Glucose 188 mg/dL (65-110); Magnesium 3.2 mg/dL (1.6-2.3); Potassium 4.7 mmol/L (3.4-5.0); Sodium 149 mmol/L (137-145)
[2021-03-28] MEDS: ACETAMINOPHEN ELIXIR 325 MG/10.15 ML UDC 650 MG PO (06:24)
[2021-03-28 08:53] LABS: Ammonia 33 umol/L (9-30)
--- NOTE | 2021-03-28 09:10 | WPDINTPN ---
Progress Note: A&P Assessment and Plan (1) Acute on chronic respiratory failure with hypoxia and hypercapnia: Code(s): J96.21 - Acute and chronic respiratory failure with hypoxia; J96.22 - Acute and chronic respiratory failure with hypercapnia Status: Acute Assessment and Plan: acute hypercapnic respiratory failure could be related to CHF exacerbation, COPD exacerbation, substance abuse, aspiration - chest x-ray reviewed -advance ET tube by 3 cm - ABGs reviewed - patient hypercarbic at baseline CT Chest 03/26 IMPRESSION: 1. Bilateral dependent opacities of the lungs and patchy opacities of the upper lobes, consistent with atelectasis and pneumonia. 2. Mediastinal lymphadenopathy, likely reactive. -continue CMV mode of ventilation. - continue bronchodilators with change to p.r.n. due to tachycardia -continue Pulmozyme -patient had a weaning trial yesterday patient had a high RSBI and also was not awake enough for extubation evaluation - sedated with propofol. will perform sedation holiday and evaluate for breathing trial - hold Lasix at this point as patient may be intravascularly volume depleted (2) Fever: Code(s): R50.9 - Fever, unspecified Status: Acute Assessment and Plan: patient febrile overnight 03/26 although his WBC is improving CT chest was done and reviewed UA was negative for any evidence of infection sputum and blood culture sent in pending continue expanded antibiotic coverage to vancomycin and cefepime normal lipase (3) CHF exacerbation: Qualifiers: Heart failure type: unspecified Qualified Code(s): I50.9 - Heart failure, unspecified Code(s): I50.9 - Heart failure, unspecified Status: Acute Assessment and Plan: chest x-ray shows signs of congestive heart failure -Cardiology following hold Lasix at this time Echocardiogram 03/23/2021: LV systolic function is normal EF of 60-65%, grade 1 diastolic dysfunction. Dilated inferior vena cava with no collapse upon inspiration consistent with significantly elevated right atrial pressure, 15 mmHg. (4) COPD exacerbation: Code(s): J44.1 - Chronic obstructive pulmonary disease with (acute) exacerbation Status: Acute Assessment and Plan: COPD exacerbation given hypercapnic respiratory failure - currently intubated, ventilator has been adjusted for hypercapnia on ABGs - continue steroid - changed to daily a.m. does -continue bronchodilators, - his antibiotics were expanded to vancomycin and cefepime -ABG much improved, (5) Elevated troponin: Code(s): R77.8 - Other specified abnormalities of plasma proteins Status: Acute Assessment and Plan: troponin elevated x1, likely related to respiratory failure, could be related to methamphetamine and adrenergic surge -minimal elevation of troponin likely related to respiratory failure, tachycardia, substance abuse -cardiology evaluated patient and recommended conservative management and has signed off - EKG not suggestive of ischemic changes (6) Active substance abuse: Code(s): F19.10 - Other psychoactive substance abuse, uncomplicated Status: Acute Assessment and Plan: urine tox screen is positive for amphetamines, benzodiazepines and cocaine (7) DVT prophylaxis: Code(s): Z29.9 - Encounter for prophylactic measures, unspecified Status: Acute Assessment and Plan: DVT prophylaxis: Lovenox SQ stress ulcer prophylaxis: Protonix (8) Nicotine dependence: Code(s): F17.200 - Nicotine dependence, unspecified, uncomplicated Status: Acute Assessment and Plan: patient continues to smoke half a packet per day Patient is currently intubated and not a candidate for smoking cessation counseling (9) Encephalopathy: Code(s): G93.40 - Encephalopathy, unspecified Status: Acute Assessment and Plan: Patient not following commands on sedation holiday a
[2021-03-28] MEDS: BISACODYL 10 MG SUPPOSITORY RECTAL (09:11)
[2021-03-28] MEDS: polyethylene glycoL 3350 17 GM POWD.PACK PO (09:11)
[2021-03-28] MEDS: methylPREDNISolone SOD SUCC 125 MG VIAL 60 MG IV PUSH (09:11)
[2021-03-28] MEDS: EZETIMIBE 10 MG TABLET FEED TUBE (09:11)
[2021-03-28] MEDS: PRAVASTATIN SODIUM 20 MG TABLET FEED TUBE (09:11)
[2021-03-28] MEDS: ENOXAPARIN 40 MG/0.4 ML SYRINGE SUB-Q (09:11)
[2021-03-28] MEDS: PANTOPRAZOLE SODIUM IV 40 MG VIAL IV PUSH (09:12)
[2021-03-28] MEDS: ASPIRIN 81 MG CHEWABLE TABLET FEED TUBE (09:22)
[2021-03-28 12:05] LABS: Glucose Point of Care 183 mg/dl (65-105)
[2021-03-28 15:28] LABS: Vancomycin Trough 8.5 ug/mL (10.0-20.0)
[2021-03-28 17:50] LABS: Glucose Point of Care 281 mg/dl (65-105)
[2021-03-28] MEDS: INSULIN ASPART (*BKC) 100 UNITS/ML SUB-Q (18:09)
--- NOTE | 2021-03-28 19:09 | PM.IMPN ---
Progress Note: A&P Assessment and Plan (1) Acute on chronic respiratory failure with hypoxia and hypercapnia: Code(s): J96.21 - Acute and chronic respiratory failure with hypoxia; J96.22 - Acute and chronic respiratory failure with hypercapnia Status: Acute (2) Fever: Code(s): R50.9 - Fever, unspecified Status: Acute (3) CHF exacerbation: Qualifiers: Heart failure type: unspecified Qualified Code(s): I50.9 - Heart failure, unspecified Code(s): I50.9 - Heart failure, unspecified Status: Acute (4) COPD exacerbation: Code(s): J44.1 - Chronic obstructive pulmonary disease with (acute) exacerbation Status: Acute (5) Elevated troponin: Code(s): R77.8 - Other specified abnormalities of plasma proteins Status: Acute (6) Active substance abuse: Code(s): F19.10 - Other psychoactive substance abuse, uncomplicated Status: Acute (7) DVT prophylaxis: Code(s): Z29.9 - Encounter for prophylactic measures, unspecified Status: Acute (8) Nicotine dependence: Code(s): F17.200 - Nicotine dependence, unspecified, uncomplicated Status: Acute (9) Encephalopathy: Code(s): G93.40 - Encephalopathy, unspecified Status: Acute (10) Hypernatremia: Code(s): E87.0 - Hyperosmolality and hypernatremia Status: Acute Additional Plan 03/28/21 acute hypercapnic respiratory failure could be related to CHF exacerbation, COPD exacerbation, substance abuse, aspiration -currently intubated on vent -vent management per event designer -on bronchodilators steroids and pulmonzyme -sedation holiday at this time. possible extubation tomorrow -last febrile episode 03/28 has had ongoing intermittent elevations to temp since 03/25 -bach imaging and culture Negative to date -continue vancomycin and cefepime Echocardiogram 03/23/2021: LV systolic function is normal EF of 60-65%, grade 1 diastolic dysfunction. Dilated inferior vena cava with no collapse upon inspiration consistent with significantly elevated right atrial pressure, 15 mmHg. urine tox screen is positive for amphetamines, benzodiazepines and cocaine -pt currently intravascularly depleated and lasix on hold -Tube feeds w hypernatremia free water flush increased -PPI -VTEP Subjective Date/time seen: 03/28/21 19:09 pt intubated intermittently following commands Exam Narrative: GEN: NAD, Alert, intermittently following commands HEENT: NCAT, MMM, EOMI, ETT Neck: no JVD Heart: S1S2 RRR Lungs: CTA B/l Abd: soft, NT, ND, bowel sounds normoactive, globose Ext: moves all, no cyanosis, no clubbing Neuro: opens eyes makes eye contact follows some commands Psych: unable to assess Objective Data Vital Signs Vital Signs: Vital Signs - 24 hr 03/27/21 20:00 03/27/21 20:45 03/27/21 21:30 Temperature 98.9 F Pulse Rate 118 H 117 H 117 H Respiratory Rate 27 H 28 H Blood Pressure 133/86 Pulse Oximetry 96 94 03/27/21 22:00 03/27/21 23:00 03/28/21 00:00 Temperature 99.1 F Pulse Rate 117 H 113 H 115 H Respiratory Rate 29 H 22 H Blood Pressure 127/79 129/82 Pulse Oximetry 92 94 94 03/28/21 02:00 03/28/21 02:15 03/28/21 04:00 Temperature 99.9 F H Pulse Rate 106 H 116 H 123 H Respiratory Rate 19 30 H Blood Pressure 107/71 141/83 H Pulse Oximetry 91 92 91 03/28/21 04:42 03/28/21 05:12 03/28/21 06:00 Temperature 101 F H Pulse Rate 124 H 125 H 121 H Respiratory Rate 29 H 18 Blood Pressure 110/75 Pulse Oximetry 90 87 L 03/28/21 06:24 03/28/21 07:24 03/28/21 08:00 Temperature 101 F H 99.1 F 99.1 F Pulse Rate 127 H Respiratory Rate 24 H Blood Pressure 131/85 Pulse Oximetry 91 03/28/21 08:25 03/28/21 10:00 03/28/21 11:10 Temperature Pulse Rate 127 H 133 H 133 H Respiratory Rate 28 H Blood Pressure 149/84 H Pulse Oximetry 89 L 90 90 03/28/21 12:00 03/28/21 14:00 03/28/21 14:20 Temperature 100.2 F H Puls
[2021-03-28 23:48] LABS: Glucose Point of Care 165 mg/dl (65-105)
[2021-03-29] VITALS (23 sets, daily range): BP systolic 97–126; BP diastolic 56–81; PULSE 90–113; RESP 20–124; TEMP 36.3–37.8; O2SAT 91–97
[2021-03-29] MEDS: PROPOFOL IV EMULSION 100 ML 4.74 MG IV CONT (00:35)
[2021-03-29] MEDS: MIDAZOLAM HCL (*CRX) 2 MG/2 ML VIAL 4 MG IV PUSH (01:00)
[2021-03-29] MEDS: fentaNYL CITRATE INJ (*CRX) 100 MCG/2 ML VIAL IV PUSH (01:01)
[2021-03-29] MEDS: ROCURONIUM BROMIDE 50 MG/5 ML VIAL IV PUSH (01:01)
--- NOTE | 2021-03-29 01:09 | PC.NURSE ---
Daylight Savings Time For Daylight Savings Time Ending in the Fall - Clocks are moved back. For Daylight Savings Time Beginning in the Spring - Clocks are moved ahead. For [facility], the time of change occurs at 0200 hrs. Time is taken from the electrical prospecting observer. This entry on the patient's chart recognizes the change in time reflected during documentation. Example: 2 entries for vital signs may be charted for 0200 hrs.
--- NOTE | 2021-03-29 01:56 | WPDPROCEDUR ---
Procedures Intubation Intubation Date: 03/29/21 Intubation Time: 00:10 A pre-procedural Time-Out was completed immediately before starting the procedure and confirmed: Patient Identification, Site, Procedure, Patient Position and the Availability of Requisite Equipment: Yes Sedative: fentanyl (100 mcg) Mg given: 4 Paralytic: rocuronium Mg given: 50 Laryngoscope: fiber optic video scope ET tube size: cuffed Tube secured depth (cm): 26 Tube secured location: teeth Tube placement confirmation: visualized tube passing through cords, equal breath sounds bilaterally, no breath sounds over epigastrium and confirmation by capnometry Patient tolerated procedure: well and no complications Intubation complications: none Additional comments: Nursing staff notified me that patient was not pulling tidal volumes and was having hypoxia. Respiratory therapy evaluated the patient and felt that the patient had a cuff leak. I went to evaluate the patient and visualize the patient's ET tube the patient's ET tube was sitting with the cuff sitting at the vocal cords. Subsequently the leave the ET tube was pulled in exchanged. X-ray following intubation demonstrated ET tube just above the robert ET tube was pulled back to 25 cm. The patient had a large amount of purulent material in the posterior oral airway.
[2021-03-29] MEDS: PROPOFOL IV EMULSION 100 ML 18.96 MG IV CONT ×2 (04:22→20:39)
[2021-03-29 05:10] LABS: Hematocrit 50.3 % (42.0-52.0); Hemoglobin 14.7 g/dL (14.0-18.0); Mean Corpuscular HGB Conc 29.2 g/dl (32-36); Mean Corpuscular Hemoglobin 29.2 pg (26-34); Mean Corpuscular Volume 99.8 fl (80-100); Mean Platelet Volume 11.1 fl (7.4-10.4); Platelet Count Result 166 k/mm3 (150-375); Red Blood Count 5.04 M/mm3 (4.6-6.20); Red Cell Distribution Width 13.2 % (11.5-14.5); White Blood Count 11.4 K/mm3 (4.5-10.0)
[2021-03-29 05:30] LABS: Alanine Aminotransferase 50 U/L (4-50); Albumin Level 3.4 g/dL (3.5-5.1); Alkaline Phosphatase 84 U/L (38-126); Aspartate Amino Transferase 46 U/L (17-59); Bilirubin,Total 0.5 mg/dL (0.2-1.3); Blood Urea Nitrogen 56 mg/dL (9-20); Calcium 9.7 mg/dL (8.4-10.2); Carbon Dioxide > 40 mmol/L (22-30); Chloride 105 mmol/L (98-107); Estimated CRCL calculation 114 ml/min; Estimated Glomerular Filt Rate > 60; Glucose 224 mg/dL (65-110); Magnesium 2.8 mg/dL (1.6-2.3); Potassium 4.4 mmol/L (3.4-5.0); Sodium 149 mmol/L (137-145)
[2021-03-29 05:57] LABS: Alveolar/Arterial O2 Gradient 293.6 mmHg; Carboxyhemoglobin 0.7 % THb (0-2.0); Fractional Inspired Oxygen 60 %; Methemoglobin ABG 0.2 %THb (0-1.5); Oxygen Content ABG 20.6 %vol (16.0-22.0); Oxygen Saturation ABG 91.7 % (95.0-100.0); Oxyhemoglobin 90.2 % THb (90.0-100.0); PO2 FiO2 Ratio Arterial Blood 1.07 %; Reduced Hemoglobin 8.9 %THb (0-5.0); Total Hemoglobin 16.3 g/dL (12.0-18.0); pH ABG 7.393 (7.350-7.450)
[2021-03-29 05:59] LABS: Device VENTILATOR; Modified Allen's Test Pass; PCO2 ABG 63.8 mmHg (35.0-45.0); Site Drawn LEFT RADIAL
[2021-03-29 06:00] LABS: Arterial Blood Gas PEEP 8 cmH2O; Arterial Blood Gas Tidal Volume 480 ml; Arterial Blood Gas Vent Mode CMV; Arterial Blood Gas Ventilator rate 18 /MIN
[2021-03-29] MEDS: INSULIN ASPART (*BKC) 100 UNITS/ML SUB-Q ×2 (06:26→17:32)
[2021-03-29] MEDS: ASPIRIN 81 MG CHEWABLE TABLET FEED TUBE (08:12)
[2021-03-29] MEDS: ACETAMINOPHEN ELIXIR 325 MG/10.15 ML UDC 650 MG PO (08:16)
[2021-03-29] MEDS: EZETIMIBE 10 MG TABLET FEED TUBE (08:17)
[2021-03-29] MEDS: ENOXAPARIN 40 MG/0.4 ML SYRINGE SUB-Q (08:17)
[2021-03-29] MEDS: BISACODYL 10 MG SUPPOSITORY RECTAL (08:17)
[2021-03-29] MEDS: polyethylene glycoL 3350 17 GM POWD.PACK PO (08:17)
[2021-03-29] MEDS: methylPREDNISolone SOD SUCC 125 MG VIAL 60 MG IV PUSH (08:17)
[2021-03-29] MEDS: PANTOPRAZOLE SODIUM IV 40 MG VIAL IV PUSH (08:17)
[2021-03-29] MEDS: PRAVASTATIN SODIUM 20 MG TABLET FEED TUBE (08:17)
[2021-03-29] MEDS: FUROSEMIDE INJ 40 MG/4 ML VIAL IV PUSH ×2 (09:29→17:23)
--- NOTE | 2021-03-29 10:14 | WPDINTPN ---
Progress Note: A&P Assessment and Plan (1) Acute on chronic respiratory failure with hypoxia and hypercapnia: Code(s): J96.21 - Acute and chronic respiratory failure with hypoxia; J96.22 - Acute and chronic respiratory failure with hypercapnia Status: Acute Assessment and Plan: acute hypercapnic respiratory failure could be related to CHF exacerbation, COPD exacerbation, substance abuse, aspiration - chest x-ray reviewed - Increasing perihilar and infrahilar interstitial opacities most likely increasing mild pulmonary edema with small bilateral pleural effusions although pneumonia not excludable. - ABGs reviewed - patient hypercarbic at baseline CT Chest 03/26 IMPRESSION: 1. Bilateral dependent opacities of the lungs and patchy opacities of the upper lobes, consistent with atelectasis and pneumonia. 2. Mediastinal lymphadenopathy, likely reactive. -continue CMV mode of ventilation. - continue bronchodilators with change to p.r.n. due to tachycardia -continue Pulmozyme -not a candidate for weaning trial today due to increased FiO2 and worsening of chest x-ray -currently off of sedation. Propofol ordered as needed -in light of worsening chest x-ray and increased oxygen requirement I will resume his Lasix (2) Fever: Code(s): R50.9 - Fever, unspecified Status: Acute Assessment and Plan: patient continues to have episodes of fever although his WBC is close to normal CT chest was done and reviewed UA was negative for any evidence of infection sputum cultures growing Staph aureus blood culture sent and are negative for now continue expanded antibiotic coverage to vancomycin and cefepime normal lipase (3) CHF exacerbation: Qualifiers: Heart failure type: unspecified Qualified Code(s): I50.9 - Heart failure, unspecified Code(s): I50.9 - Heart failure, unspecified Status: Acute Assessment and Plan: chest x-ray shows signs of congestive heart failure -Cardiology following Resume Lasix Echocardiogram 03/23/2021: LV systolic function is normal EF of 60-65%, grade 1 diastolic dysfunction. Dilated inferior vena cava with no collapse upon inspiration consistent with significantly elevated right atrial pressure, 15 mmHg. (4) COPD exacerbation: Code(s): J44.1 - Chronic obstructive pulmonary disease with (acute) exacerbation Status: Acute Assessment and Plan: COPD exacerbation given hypercapnic respiratory failure - currently intubated, ventilator has been adjusted for hypercapnia on ABGs - continue steroid - changed to daily a.m. does -continue bronchodilators, - his antibiotics were expanded to vancomycin and cefepime -ABG much improved, (5) Elevated troponin: Code(s): R77.8 - Other specified abnormalities of plasma proteins Status: Acute Assessment and Plan: troponin elevated x1, likely related to respiratory failure, could be related to methamphetamine and adrenergic surge -minimal elevation of troponin likely related to respiratory failure, tachycardia, substance abuse -cardiology evaluated patient and recommended conservative management and has signed off - EKG not suggestive of ischemic changes (6) Active substance abuse: Code(s): F19.10 - Other psychoactive substance abuse, uncomplicated Status: Acute Assessment and Plan: urine tox screen is positive for amphetamines, benzodiazepines and cocaine (7) DVT prophylaxis: Code(s): Z29.9 - Encounter for prophylactic measures, unspecified Status: Acute Assessment and Plan: DVT prophylaxis: Lovenox SQ stress ulcer prophylaxis: Protonix (8) Nicotine dependence: Code(s): F17.200 - Nicotine dependence, unspecified, uncomplicated Status: Acute Assessment and Plan: patient continues to smoke half a packet per day Patient is currently intubated and not a candidate for smoking cessation counseling (9) Encephalopathy:
[2021-03-29 11:57] LABS: Glucose Point of Care 198 mg/dl (65-105)
[2021-03-29] MEDS: PROPOFOL IV EMULSION 100 ML 14.22 MG IV CONT (15:07)
[2021-03-29 17:27] LABS: Glucose Point of Care 227 mg/dl (65-105)
[2021-03-30] VITALS (29 sets, daily range): BP systolic 92–128; BP diastolic 56–79; PULSE 72–108; RESP 18–36; TEMP 36.5–36.9; O2SAT 90–96
[2021-03-30 00:18] LABS: Glucose Point of Care 154 mg/dl (65-105)
[2021-03-30] MEDS: PROPOFOL IV EMULSION 100 ML 23.7 MG IV CONT (01:34)
[2021-03-30 04:53] LABS: Hematocrit 49.8 % (42.0-52.0); Hemoglobin 15.4 g/dL (14.0-18.0); Mean Corpuscular HGB Conc 30.9 g/dl (32-36); Mean Corpuscular Hemoglobin 29.8 pg (26-34); Mean Corpuscular Volume 96.3 fl (80-100); Mean Platelet Volume 11.2 fl (7.4-10.4); Platelet Count Result 192 k/mm3 (150-375); Red Blood Count 5.17 M/mm3 (4.6-6.20); Red Cell Distribution Width 12.6 % (11.5-14.5); White Blood Count 12.1 K/mm3 (4.5-10.0)
[2021-03-30 05:14] LABS: Alanine Aminotransferase 69 U/L (4-50); Albumin Level 3.4 g/dL (3.5-5.1); Alkaline Phosphatase 91 U/L (38-126); Aspartate Amino Transferase 54 U/L (17-59); Bilirubin,Total 0.5 mg/dL (0.2-1.3); Blood Urea Nitrogen 60 mg/dL (9-20); Calcium 9.9 mg/dL (8.4-10.2); Carbon Dioxide > 40 mmol/L (22-30); Chloride 101 mmol/L (98-107); Estimated CRCL calculation 102 ml/min; Estimated Glomerular Filt Rate > 60; Glucose 179 mg/dL (65-110); Magnesium 2.9 mg/dL (1.6-2.3); Potassium 3.9 mmol/L (3.4-5.0); Sodium 145 mmol/L (137-145)
[2021-03-30 05:20] LABS: Alveolar/Arterial O2 Gradient 152.1 mmHg; Base Excess ABG 9.6 mEq/l (+/-2.0); Carboxyhemoglobin 0.5 % THb (0-2.0); Fractional Inspired Oxygen 40 %; HCO3 ABG 36.8 mEq/l (22.0-26.0); Methemoglobin ABG 0.3 %THb (0-1.5); Oxygen Content ABG 20.6 %vol (16.0-22.0); Oxygen Saturation ABG 92.7 % (95.0-100.0); Oxyhemoglobin 91.2 % THb (90.0-100.0); PCO2 ABG 58.7 mmHg (35.0-45.0); PO2 ABG 65.6 mmHg (80.0-100.0); PO2 FiO2 Ratio Arterial Blood 1.64 %; Total Hemoglobin 16.1 g/dL (12.0-18.0); pH ABG 7.415 (7.350-7.450)
[2021-03-30 05:21] LABS: Device VENTILATOR; Modified Allen's Test Pass; Site Drawn RIGHT RADIAL
[2021-03-30 05:22] LABS: Arterial Blood Gas PEEP 8 cmH2O; Arterial Blood Gas Tidal Volume 450 ml; Arterial Blood Gas Vent Mode CMV; Arterial Blood Gas Ventilator rate 18 /MIN
[2021-03-30 05:23] LABS: Vancomycin Trough 20.4 ug/mL (10.0-20.0)
[2021-03-30 06:26] LABS: Glucose Point of Care 198 mg/dl (65-105)
[2021-03-30] MEDS: FUROSEMIDE INJ 40 MG/4 ML VIAL IV PUSH ×2 (08:02→19:36)
[2021-03-30] MEDS: ENOXAPARIN 40 MG/0.4 ML SYRINGE SUB-Q (08:05)
[2021-03-30] MEDS: methylPREDNISolone SOD SUCC 125 MG VIAL 60 MG IV PUSH (08:05)
[2021-03-30] MEDS: PANTOPRAZOLE SODIUM IV 40 MG VIAL IV PUSH (08:05)
[2021-03-30] MEDS: EZETIMIBE 10 MG TABLET FEED TUBE (08:06)
[2021-03-30] MEDS: PRAVASTATIN SODIUM 20 MG TABLET FEED TUBE (08:06)
[2021-03-30] MEDS: ASPIRIN 81 MG CHEWABLE TABLET FEED TUBE (08:10)
[2021-03-30] MEDS: PROPOFOL IV EMULSION 100 ML 18.96 MG IV CONT (09:57)
[2021-03-30 10:57] LABS: Glucose Point of Care 240 mg/dl (65-105)
[2021-03-30] MEDS: INSULIN ASPART (*BKC) 100 UNITS/ML SUB-Q ×2 (11:00→17:06)
--- NOTE | 2021-03-30 12:08 | PCFNICU ---
ICU Rounding Note: Pt current nutrition is NPO. Last recorded weight is 138.4 kg, down from 148.2 on admit. Bowel Motility:No BM reported, Miralax added. Labs Reviewed:Mg 2.9,BUN 60,Alb 3.4,Glu 179 Meds Noted:Vancomycin, Solu Medrol, Cefepime, Lasix, Novolog, Miralax. Skin: WNL Additional Notes: Plans for Tube feedings to be discontinued. Propofol discontinued. Plans for breathing trial today. Following daily in ICU rounds. Assessing/reassessing every 3 days.
[2021-03-30 13:13] LABS: Alveolar/Arterial O2 Gradient 143.8 mmHg; Base Excess ABG 6.7 mEq/l (+/-2.0); Carboxyhemoglobin 0.5 % THb (0-2.0); Fractional Inspired Oxygen 40 %; HCO3 ABG 34.3 mEq/l (22.0-26.0); Methemoglobin ABG 0.4 %THb (0-1.5); Oxygen Content ABG 21.5 %vol (16.0-22.0); Oxygen Saturation ABG 93.8 % (95.0-100.0); Oxyhemoglobin 92.1 % THb (90.0-100.0); PO2 ABG 72.1 mmHg (80.0-100.0); Total Hemoglobin 16.6 g/dL (12.0-18.0); pH ABG 7.373 (7.350-7.450)
[2021-03-30 13:14] LABS: Device VENTILATOR; Modified Allen's Test Pass; PCO2 ABG 60.3 mmHg (35.0-45.0); Site Drawn RIGHT RADIAL
[2021-03-30 13:15] LABS: Arterial Blood Gas PEEP 5 cmH2O; Arterial Blood Gas Pressure Support 10 cmH2O; Arterial Blood Gas Vent Mode SPONTANEOUS
--- NOTE | 2021-03-30 13:47 | WPDINTPN ---
Progress Note: A&P Assessment and Plan (1) Acute on chronic respiratory failure with hypoxia and hypercapnia: Code(s): J96.21 - Acute and chronic respiratory failure with hypoxia; J96.22 - Acute and chronic respiratory failure with hypercapnia Status: Acute Assessment and Plan: acute hypercapnic respiratory failure could be related to CHF exacerbation, COPD exacerbation, substance abuse, aspiration. Intubated on 03/21/2021 - chest x-ray reviewed - Increasing perihilar and infrahilar interstitial opacities most likely increasing mild pulmonary edema with small bilateral pleural effusions although pneumonia not excludable. - ABGs reviewed - patient hypercarbic at baseline CT Chest 03/26 IMPRESSION: 1. Bilateral dependent opacities of the lungs and patchy opacities of the upper lobes, consistent with atelectasis and pneumonia. 2. Mediastinal lymphadenopathy, likely reactive. -continue CMV mode of ventilation. - continue bronchodilators with change to p.r.n. due to tachycardia -continue Pulmozyme -chest x-ray today shows stable mild airspace opacities in the mid and lower lung zones, consistent with pulmonary edema versus pneumonia. -patient has been diuresing well -will discontinue propofol and place patient on SBT and evaluate for extubation (2) Fever: Code(s): R50.9 - Fever, unspecified Status: Acute Assessment and Plan: patient continues to have episodes of fever although his WBC is close to normal CT chest was done and reviewed UA was negative for any evidence of infection sputum cultures growing Staph aureus blood culture sent and are negative for now continue expanded antibiotic coverage to vancomycin and cefepime normal lipase (3) CHF exacerbation: Qualifiers: Heart failure type: unspecified Qualified Code(s): I50.9 - Heart failure, unspecified Code(s): I50.9 - Heart failure, unspecified Status: Acute Assessment and Plan: chest x-ray shows signs of congestive heart failure -Cardiology following Continue Lasix Echocardiogram 03/23/2021: LV systolic function is normal EF of 60-65%, grade 1 diastolic dysfunction. Dilated inferior vena cava with no collapse upon inspiration consistent with significantly elevated right atrial pressure, 15 mmHg. (4) COPD exacerbation: Code(s): J44.1 - Chronic obstructive pulmonary disease with (acute) exacerbation Status: Acute Assessment and Plan: COPD exacerbation given hypercapnic respiratory failure - currently intubated, ventilator has been adjusted for hypercapnia on ABGs - continue steroid - changed to daily a.m. does -continue bronchodilators, - his antibiotics were expanded to vancomycin and cefepime -ABG much improved, (5) Elevated troponin: Code(s): R77.8 - Other specified abnormalities of plasma proteins Status: Acute Assessment and Plan: troponin elevated x1, likely related to respiratory failure, could be related to methamphetamine and adrenergic surge -minimal elevation of troponin likely related to respiratory failure, tachycardia, substance abuse -cardiology evaluated patient and recommended conservative management and has signed off - EKG not suggestive of ischemic changes (6) Active substance abuse: Code(s): F19.10 - Other psychoactive substance abuse, uncomplicated Status: Acute Assessment and Plan: urine tox screen is positive for amphetamines, benzodiazepines and cocaine (7) DVT prophylaxis: Code(s): Z29.9 - Encounter for prophylactic measures, unspecified Status: Acute Assessment and Plan: DVT prophylaxis: Lovenox SQ stress ulcer prophylaxis: Protonix (8) Nicotine dependence: Code(s): F17.200 - Nicotine dependence, unspecified, uncomplicated Status: Acute Assessment and Plan: patient continues to smoke half a packet per day Patient is currently intubated and not a candidate for smoking
[2021-03-30] MEDS: dexmedeTOMIDine 400 MCG/100 ML 400 MCG/100 ML BAG 6.92 MCG IV CONT (14:05)
[2021-03-30 17:09] LABS: Glucose Point of Care 219 mg/dl (65-105)
--- NOTE | 2021-03-30 18:20 | PC.NURSE ---
SBAR sent to [facility] Med/Surg
[2021-03-30] MEDS: MINERAL OIL/WHITE PETROLATUM OINTMENT 1 APPLIC EACH EYE (20:54)
[2021-03-30] MEDS: dexmedeTOMIDine 400 MCG/100 ML 400 MCG/100 ML BAG 10.38 MCG IV CONT (22:24)
[2021-03-30 23:17] LABS: Glucose Point of Care 189 mg/dl (65-105)
[2021-03-31] VITALS (25 sets, daily range): BP systolic 100–126; BP diastolic 68–87; PULSE 64–101; RESP 14–26; TEMP 36.5–36.8; O2SAT 89–96
[2021-03-31 04:35] LABS: Glucose Point of Care 225 mg/dl (65-105)
[2021-03-31] MEDS: dexmedeTOMIDine 400 MCG/100 ML 400 MCG/100 ML BAG 10.38 MCG IV CONT (04:36)
[2021-03-31] MEDS: INSULIN ASPART (*BKC) 100 UNITS/ML SUB-Q ×2 (04:37→17:06)
[2021-03-31 05:19] LABS: Hematocrit 51.7 % (42.0-52.0); Hemoglobin 15.9 g/dL (14.0-18.0); Mean Corpuscular HGB Conc 30.8 g/dl (32-36); Mean Corpuscular Hemoglobin 29.7 pg (26-34); Mean Corpuscular Volume 96.6 fl (80-100); Mean Platelet Volume 11.9 fl (7.4-10.4); Platelet Count Result 179 k/mm3 (150-375); Red Blood Count 5.35 M/mm3 (4.6-6.20); Red Cell Distribution Width 12.6 % (11.5-14.5); White Blood Count 12.2 K/mm3 (4.5-10.0)
[2021-03-31] MEDS: fentaNYL CITRATE INJ (*CRX) 100 MCG/2 ML VIAL 50 MCG IV PUSH (05:21)
[2021-03-31 05:49] LABS: Alanine Aminotransferase 88 U/L (4-50); Albumin Level 3.5 g/dL (3.5-5.1); Alkaline Phosphatase 72 U/L (38-126); Anion Gap 3 mmol/L (8-16); Aspartate Amino Transferase 61 U/L (17-59); Blood Urea Nitrogen 76 mg/dL (9-20); Calcium 9.8 mg/dL (8.4-10.2); Carbon Dioxide 39 mmol/L (22-30); Chloride 100 mmol/L (98-107); Estimated CRCL calculation 114 ml/min; Estimated Glomerular Filt Rate > 60; Glucose 226 mg/dL (65-110); Magnesium 2.9 mg/dL (1.6-2.3); Potassium 4.7 mmol/L (3.4-5.0); Sodium 142 mmol/L (137-145)
[2021-03-31 05:58] LABS: Alveolar/Arterial O2 Gradient 164.1 mmHg; Base Excess ABG 1.2 mEq/l (+/-2.0); Carboxyhemoglobin 0.6 % THb (0-2.0); Fractional Inspired Oxygen 40 %; HCO3 ABG 26.2 mEq/l (22.0-26.0); Methemoglobin ABG 0.2 %THb (0-1.5); Oxygen Content ABG 20.5 %vol (16.0-22.0); Oxygen Saturation ABG 94.5 % (95.0-100.0); Oxyhemoglobin 92.7 % THb (90.0-100.0); PCO2 ABG 42.8 mmHg (35.0-45.0); PO2 ABG 71.9 mmHg (80.0-100.0); Reduced Hemoglobin 6.5 %THb (0-5.0); Total Hemoglobin 15.7 g/dL (12.0-18.0); pH ABG 7.404 (7.350-7.450)
[2021-03-31 06:00] LABS: Device VENTILATOR; Modified Allen's Test Pass; Site Drawn RIGHT RADIAL
[2021-03-31 06:01] LABS: Arterial Blood Gas PEEP 5 cmH2O; Arterial Blood Gas Vent Mode ASV
[2021-03-31] MEDS: ENOXAPARIN 40 MG/0.4 ML SYRINGE SUB-Q (08:01)
[2021-03-31] MEDS: EZETIMIBE 10 MG TABLET FEED TUBE (08:01)
[2021-03-31] MEDS: methylPREDNISolone SOD SUCC 125 MG VIAL 60 MG IV PUSH (08:01)
[2021-03-31] MEDS: PRAVASTATIN SODIUM 20 MG TABLET FEED TUBE (08:01)
[2021-03-31] MEDS: MINERAL OIL/WHITE PETROLATUM OINTMENT 1 APPLIC EACH EYE ×2 (08:02→22:00)
[2021-03-31] MEDS: PANTOPRAZOLE SODIUM IV 40 MG VIAL IV PUSH (08:02)
[2021-03-31] MEDS: FUROSEMIDE INJ 40 MG/4 ML VIAL IV PUSH ×2 (08:02→17:01)
[2021-03-31] MEDS: ASPIRIN 81 MG CHEWABLE TABLET FEED TUBE (08:05)
--- NOTE | 2021-03-31 10:03 | PM.IMPN ---
Progress Note: A&P Assessment and Plan (1) Acute on chronic respiratory failure with hypoxia and hypercapnia: Code(s): J96.21 - Acute and chronic respiratory failure with hypoxia; J96.22 - Acute and chronic respiratory failure with hypercapnia Status: Acute Assessment and Plan: Acute hypercapnic respiratory failure felt to be multifactorial related to CHF exacerbation, COPD exacerbation, substance abuse, and/or aspiration PNA. Intubated on 03/21/2021. CT Chest 03/26 showing bilateral dependent opacities of the lungs and patchy opacities of the upper lobes, consistent with atelectasis and pneumonia. Repeat chest x-ray showing improvement. patient tolerating breathing trial. Continue steroids for COPD. Continue Lasix for the CHF. He is on antibiotics for his pneumonia. Clinically improving. Continue aggressive pulmonary toilet. Appreciate tire service technician input. (2) Fever: Code(s): R50.9 - Fever, unspecified Status: Acute Assessment and Plan: Patient developed fevers on March 25. He started on cefepime and vancomycin. Fever has waned. Concerning for pneumonia. Blood culture and no growth today. Urine culture negative. Sputum growing methicillin sensitive Staph aureus. Normal lipase. Continue current IV antibiotics. (3) CHF exacerbation: Qualifiers: Heart failure type: unspecified Qualified Code(s): I50.9 - Heart failure, unspecified Code(s): I50.9 - Heart failure, unspecified Status: Acute Assessment and Plan: Chest x-ray is consistent with CHF exacerbation. Echo 03/23/2021: LV systolic function is normal EF of 60-65%, grade 1 diastolic dysfunction. Dilated inferior vena cava with no collapse upon inspiration consistent with significantly elevated right atrial pressure, 15 mmHg. He is currently on IV Lasix with a cumulative fluid balance of-2.6 L. Renal function Yeimi. Elevated BUN probably related to the steroids. Chest x-ray shows much improved. (4) COPD exacerbation: Code(s): J44.1 - Chronic obstructive pulmonary disease with (acute) exacerbation Status: Acute Assessment and Plan: Patient with a COPD exacerbation given hypercapnic respiratory failure. Patient remains intubated. No wheezing appreciated on exam. Symbicort on hold. Weaning Solu-Medrol. Albuterol and Atrovent nebs available as needed. (5) Hyperglycemia: Code(s): R73.9 - Hyperglycemia, unspecified Status: Acute Assessment and Plan: Glucose elevated felt related to the steroids. A1c 6.0. Glucose uncontrolled. Add lantus. Continue sliding scale protocol. Hypoglycemia protocol has been ordered as well (6) Encephalopathy: Code(s): G93.40 - Encephalopathy, unspecified Status: Acute Assessment and Plan: Patient was confused and agitated on admission. TSH normal. Ammonia slightly elevated at 33. Likely toxic metabolic encephalopathy as it has improved after holding his sedation for extended period of time. Could also be related to drug use. Patient is now awake, alert and following commands. Continue to monitor. (7) Active substance abuse: Code(s): F19.10 - Other psychoactive substance abuse, uncomplicated Status: Acute Assessment and Plan: UDS is positive for amphetamines, benzodiazepines and cocaine. Patient to be educated about the benefits of abstaining from substance abuse when able. Also will have CC provide information about drug rehab. (8) Elevated troponin: Code(s): R77.8 - Other specified abnormalities of plasma proteins Status: Acute Assessment and Plan: Troponin elevated to 0.095. EKG showing poor R wave progression and iRBBB. Orange elevated Trop related to the respiratory failure and from his substance abuse. Cardiology evaluated patient and recommended conservative management and has signed off. (9) Hypernatremia: Code(s): E87.0 - Hyperosmolality and hypern
[2021-03-31 10:46] LABS: Alveolar/Arterial O2 Gradient 144.1 mmHg; Base Excess ABG 13.4 mEq/l (+/-2.0); Fractional Inspired Oxygen 40 %; HCO3 ABG 43.1 mEq/l (22.0-26.0); Oxygen Content ABG 19.8 %vol (16.0-22.0); PO2 FiO2 Ratio Arterial Blood 1.33 %; Total Hemoglobin 16.2 g/dL (12.0-18.0); pH ABG 7.368 (7.350-7.450)
[2021-03-31 10:49] LABS: Oxygen Saturation ABG 84.8 % (95.0-100.0); PCO2 ABG 76.6 mmHg (35.0-45.0)
[2021-03-31 10:50] LABS: Arterial Blood Gas PEEP 5 cmH2O; Arterial Blood Gas Pressure Support 5 cmH2O; Arterial Blood Gas Vent Mode SPONTANEOUS; Device VENTILATOR; Modified Allen's Test Pass; Site Drawn RIGHT RADIAL
[2021-03-31 11:36] LABS: Glucose Point of Care 173 mg/dl (65-105)
--- NOTE | 2021-03-31 12:14 | PCFNICU ---
ICU Rounding Note: Pt current nutrition is NPO. Last recorded weight is 139.3kg, up from 148.2 kg on admit. Bowel Motility:BM reported 03/30 Labs Reviewed:BUN 76, Glu 226,Mg 2.9 Meds Noted:NovoLog, Solu Medrol, Lovenox, Sublimaze, Vancomycin, Cefepime, Precedex. Zetia, Lasix. Skin:WNL Additional Notes: Patient tube feedings did run overnight of Jevity 1.2 and tolerating per nursing. Tube feedings on hold today for breathing trial. Possible extubation today. Following daily in ICU rounds. Assessing/reassessing every 3 days.
--- NOTE | 2021-03-31 14:38 | WPDINTPN ---
Progress Note: A&P Assessment and Plan (1) Acute on chronic respiratory failure with hypoxia and hypercapnia: Code(s): J96.21 - Acute and chronic respiratory failure with hypoxia; J96.22 - Acute and chronic respiratory failure with hypercapnia Status: Acute Assessment and Plan: acute hypercapnic respiratory failure could be related to CHF exacerbation, COPD exacerbation, substance abuse, aspiration. Intubated on 03/21/2021 - chest x-ray reviewed - Increasing perihilar and infrahilar interstitial opacities most likely increasing mild pulmonary edema with small bilateral pleural effusions although pneumonia not excludable. - ABGs reviewed - patient hypercarbic at baseline CT Chest 03/26 IMPRESSION: 1. Bilateral dependent opacities of the lungs and patchy opacities of the upper lobes, consistent with atelectasis and pneumonia. 2. Mediastinal lymphadenopathy, likely reactive. -continue CMV mode of ventilation. - continue bronchodilators with change to p.r.n. due to tachycardia -continue Pulmozyme -chest x-ray today shows stable mild airspace opacities in the mid and lower lung zones, consistent with pulmonary edema versus pneumonia. -patient has been diuresing well -patient on PSV mode of ventilation, peep of 5, 40% FiO2. Patient was placed on SBT, repeat ABG showed hypercapnia with pCO2 of 76. Patient also has increased ETT secretions, Will hold extubate in today given significant hypercapnia (2) Fever: Code(s): R50.9 - Fever, unspecified Status: Acute Assessment and Plan: patient continues to have episodes of fever although his WBC is close to normal CT chest was done and reviewed UA was negative for any evidence of infection sputum cultures growing Staph aureus blood culture sent and are negative for now continue expanded antibiotic coverage to vancomycin and cefepime normal lipase (3) CHF exacerbation: Qualifiers: Heart failure type: unspecified Qualified Code(s): I50.9 - Heart failure, unspecified Code(s): I50.9 - Heart failure, unspecified Status: Acute Assessment and Plan: chest x-ray shows signs of congestive heart failure -Cardiology following Continue Lasix Echocardiogram 03/23/2021: LV systolic function is normal EF of 60-65%, grade 1 diastolic dysfunction. Dilated inferior vena cava with no collapse upon inspiration consistent with significantly elevated right atrial pressure, 15 mmHg. (4) COPD exacerbation: Code(s): J44.1 - Chronic obstructive pulmonary disease with (acute) exacerbation Status: Acute Assessment and Plan: COPD exacerbation given hypercapnic respiratory failure - currently intubated, ventilator has been adjusted for hypercapnia on ABGs - continue steroid - changed to daily a.m. does -continue bronchodilators, - his antibiotics were expanded to vancomycin and cefepime -ABG much improved, (5) Elevated troponin: Code(s): R77.8 - Other specified abnormalities of plasma proteins Status: Acute Assessment and Plan: troponin elevated x1, likely related to respiratory failure, could be related to methamphetamine and adrenergic surge -minimal elevation of troponin likely related to respiratory failure, tachycardia, substance abuse -cardiology evaluated patient and recommended conservative management and has signed off - EKG not suggestive of ischemic changes (6) Active substance abuse: Code(s): F19.10 - Other psychoactive substance abuse, uncomplicated Status: Acute Assessment and Plan: urine tox screen is positive for amphetamines, benzodiazepines and cocaine (7) DVT prophylaxis: Code(s): Z29.9 - Encounter for prophylactic measures, unspecified Status: Acute Assessment and Plan: DVT prophylaxis: Lovenox SQ stress ulcer prophylaxis: Protonix (8) Nicotine dependence: Code(s): F17.200 - Nicotine dependence, unspecified, uncomplicated St
[2021-03-31] MEDS: dexmedeTOMIDine 400 MCG/100 ML 400 MCG/100 ML BAG 13.84 MCG IV CONT (14:44)
[2021-03-31 16:58] LABS: Glucose Point of Care 218 mg/dl (65-105)
[2021-03-31 20:19] LABS: Glucose Point of Care 198 mg/dl (65-105)
[2021-03-31] MEDS: INSULIN GLARGINE (*BKC) 100 UNITS/ML SUB-Q (21:59)
[2021-03-31 23:59] LABS: Glucose Point of Care 217 mg/dl (65-105)
[2021-04-01] VITALS (32 sets, daily range): BP systolic 94–125; BP diastolic 52–85; PULSE 62–84; RESP 12–27; TEMP 36.5–37.1; O2SAT 89–97
[2021-04-01] MEDS: INSULIN ASPART (*BKC) 100 UNITS/ML SUB-Q (00:03)
[2021-04-01] MEDS: dexmedeTOMIDine 400 MCG/100 ML 400 MCG/100 ML BAG 10.38 MCG IV CONT ×3 (01:11→19:39)
[2021-04-01 05:04] LABS: Basophils Percent Auto 0.2 % (0.2-1.2); Eosinophils Absolute Auto 0.3 K/mm3 (0-0.3); Eosinophils Percent Auto 2.2 % (0-4.4); Hematocrit 47.9 % (42.0-52.0); Hemoglobin 15.1 g/dL (14.0-18.0); Immature Granulocyte Absolute 0.17 K/mm3 (0.00-0.031); Immature Granulocyte Percent A 1.4 % (0-0.5); Lymphocytes Absolute Auto 1.49 K/mm3 (0.9-3.2); Lymphocytes Percent Auto 12.3 % (18.3-44.2); Mean Corpuscular HGB Conc 31.5 g/dl (32-36); Mean Corpuscular Hemoglobin 29.8 pg (26-34); Mean Corpuscular Volume 94.5 fl (80-100); Mean Platelet Volume 11.6 fl (7.4-10.4); Monocytes Absolute Auto 0.6 K/mm3 (0.1-0.6); Monocytes Percent Auto 4.6 % (2.6-8.5); Neutrophils Absolute Auto 9.6 K/mm3 (1.3-6.7); Neutrophils Percent Auto 79.3 % (45.5-73.1); Platelet Count Result 218 k/mm3 (150-375); Red Blood Count 5.07 M/mm3 (4.6-6.20); Red Cell Distribution Width 12.3 % (11.5-14.5); White Blood Count 12.1 K/mm3 (4.5-10.0)
[2021-04-01 05:26] LABS: Alanine Aminotransferase 91 U/L (4-50); Albumin Level 3.4 g/dL (3.5-5.1); Alkaline Phosphatase 83 U/L (38-126); Anion Gap 6 mmol/L (8-16); Aspartate Amino Transferase 43 U/L (17-59); Bilirubin,Total 0.7 mg/dL (0.2-1.3); Blood Urea Nitrogen 65 mg/dL (9-20); Calcium 9.4 mg/dL (8.4-10.2); Carbon Dioxide 36 mmol/L (22-30); Chloride 98 mmol/L (98-107); Estimated CRCL calculation 114 ml/min; Estimated Glomerular Filt Rate > 60; Glucose 212 mg/dL (65-110); Magnesium 2.6 mg/dL (1.6-2.3); Potassium 3.2 mmol/L (3.4-5.0); Sodium 140 mmol/L (137-145)
[2021-04-01 06:02] LABS: Alveolar/Arterial O2 Gradient 156.1 mmHg; Base Excess ABG 10.6 mEq/l (+/-2.0); Carboxyhemoglobin 0.3 % THb (0-2.0); Device VENTILATOR; Fractional Inspired Oxygen 40 %; HCO3 ABG 37.6 mEq/l (22.0-26.0); Methemoglobin ABG 0.3 %THb (0-1.5); Modified Allen's Test Pass; Oxygen Content ABG 20.4 %vol (16.0-22.0); Oxygen Saturation ABG 91.9 % (95.0-100.0); Oxyhemoglobin 90.7 % THb (90.0-100.0); PCO2 ABG 58.2 mmHg (35.0-45.0); PO2 ABG 62.2 mmHg (80.0-100.0); PO2 FiO2 Ratio Arterial Blood 1.56 %; Reduced Hemoglobin 8.7 %THb (0-5.0); Site Drawn RIGHT RADIAL; pH ABG 7.428 (7.350-7.450)
[2021-04-01 06:03] LABS: Arterial Blood Gas PEEP 5 cmH2O; Arterial Blood Gas Vent Mode ASV
[2021-04-01 06:07] LABS: Glucose Point of Care 185 mg/dl (65-105)
[2021-04-01] MEDS: ASPIRIN 81 MG CHEWABLE TABLET FEED TUBE (09:03)
[2021-04-01] MEDS: POTASSIUM CHLORIDE 20 MEQ PACKET (FOR LIQUID) 40 MEQ PO (09:03)
[2021-04-01] MEDS: EZETIMIBE 10 MG TABLET FEED TUBE (09:04)
[2021-04-01] MEDS: PRAVASTATIN SODIUM 20 MG TABLET FEED TUBE (09:04)
[2021-04-01] MEDS: ENOXAPARIN 40 MG/0.4 ML SYRINGE SUB-Q (09:07)
[2021-04-01] MEDS: FUROSEMIDE INJ 40 MG/4 ML VIAL 20 MG IV PUSH ×2 (09:07→17:13)
[2021-04-01] MEDS: methylPREDNISolone SOD SUCC 125 MG VIAL 60 MG IV PUSH (09:07)
[2021-04-01] MEDS: MINERAL OIL/WHITE PETROLATUM OINTMENT 1 APPLIC EACH EYE (09:08)
[2021-04-01] MEDS: PANTOPRAZOLE SODIUM IV 40 MG VIAL IV PUSH (09:08)
[2021-04-01 10:12] LABS: Alveolar/Arterial O2 Gradient 150.9 mmHg; Base Excess ABG 7.9 mEq/l (+/-2.0); Fractional Inspired Oxygen 40 %; HCO3 ABG 35.2 mEq/l (22.0-26.0); Oxygen Content ABG 20.3 %vol (16.0-22.0); Oxygen Saturation ABG 92.6 % (95.0-100.0); Oxyhemoglobin 91.4 % THb (90.0-100.0); PO2 ABG 66.5 mmHg (80.0-100.0); PO2 FiO2 Ratio Arterial Blood 1.66 %; Total Hemoglobin 15.8 g/dL (12.0-18.0); pH ABG 7.393 (7.350-7.450)
[2021-04-01 10:13] LABS: Arterial Blood Gas PEEP 5 cmH2O; Arterial Blood Gas Pressure Support 8 cmH2O; Arterial Blood Gas Vent Mode SPONTANEOUS; Device VENTILATOR; Modified Allen's Test Pass; Site Drawn LEFT RADIAL
[2021-04-01 11:37] LABS: Glucose Point of Care 192 mg/dl (65-105)
--- NOTE | 2021-04-01 12:03 | PM.IMPN ---
Progress Note: A&P Assessment and Plan (1) Acute on chronic respiratory failure with hypoxia and hypercapnia: Code(s): J96.21 - Acute and chronic respiratory failure with hypoxia; J96.22 - Acute and chronic respiratory failure with hypercapnia Status: Acute Assessment and Plan: Acute hypercapnic respiratory failure felt to be multifactorial related to CHF exacerbation, COPD exacerbation, substance abuse, and/or aspiration PNA. Intubated on 03/21/2021. CT Chest 03/26 showing bilateral dependent opacities of the lungs and patchy opacities of the upper lobes, consistent with atelectasis and pneumonia. Repeat CXR showing improvement. Continue steroids for COPD. Continue Lasix for the CHF. He is on antibiotics for his pneumonia. Clinically improving. Continue aggressive pulmonary toilet. Appreciate software deployment engineer input. Possible extubation today. After my evaluation, poornima was extubated to [place]. (2) Pneumonia: Code(s): J18.9 - Pneumonia, unspecified organism Status: Acute Assessment and Plan: Patient developed fevers on March 25. He was started on cefepime and vancomycin. Fever has waned. Concerning for pneumonia, possibly aspiration. [place] present on admission Blood culture and Urine culture negative. Sputum growing methicillin sensitive Staph aureus. Normal lipase. Continue current IV antibiotics. Once more stable, wean abx. (3) CHF exacerbation: Qualifiers: Heart failure type: unspecified Qualified Code(s): I50.9 - Heart failure, unspecified Code(s): I50.9 - Heart failure, unspecified Status: Acute Assessment and Plan: Chest x-ray is consistent with CHF exacerbation. Echo 03/23/2021: LV systolic function is normal EF of 60-65%, grade 1 diastolic dysfunction. Dilated inferior vena cava with no collapse upon inspiration consistent with significantly elevated right atrial pressure, 15 mmHg. He is currently on IV Lasix with a cumulative fluid balance of -3 L. Renal function normal. Elevated BUN probably related to the steroids. Chest x-ray reviewed showing improvement but persistent bilateral lower lobe findings. (4) COPD exacerbation: Code(s): J44.1 - Chronic obstructive pulmonary disease with (acute) exacerbation Status: Acute Assessment and Plan: Patient with a COPD exacerbation given hypercapnic respiratory failure. Patient remains intubated. No wheezing appreciated on exam. Symbicort on hold. Weaning Solu-Medrol. Albuterol and Atrovent nebs available as needed. (5) Hyperglycemia: Code(s): R73.9 - Hyperglycemia, unspecified Status: Acute Assessment and Plan: Glucose elevated felt related to the steroids. A1c 6.0. Glucose remains poorly controlled. Continue sliding scale protocol. Hypoglycemia protocol has been ordered as well. Advnace Lantus. (6) Encephalopathy: Code(s): G93.40 - Encephalopathy, unspecified Status: Acute Assessment and Plan: Patient was confused and agitated on admission. TSH normal. Ammonia slightly elevated at 33. Likely toxic metabolic encephalopathy as it has improved after holding his sedation for extended period of time. Could also be related to drug use. Patient is now awake, alert and following commands. Continue to monitor. (7) Active substance abuse: Code(s): F19.10 - Other psychoactive substance abuse, uncomplicated Status: Acute Assessment and Plan: UDS is positive for amphetamines, benzodiazepines and cocaine. Patient to be educated about the benefits of abstaining from substance abuse when able. Also will have Care Coord provide information about drug rehab. (8) Elevated troponin: Code(s): R77.8 - Other specified abnormalities of plasma proteins Status: Acute Assessment and Plan: Troponin elevated to 0.095. EKG showing poor R wave progression and iRBBB. [place] elevated Trop related to the respiratory failu
--- NOTE | 2021-04-01 12:21 | PCFNICU ---
ICU Rounding Note: Pt current nutrition is NPO. Last recorded weight is 138.3 kg. Bowel Motility:+BM reported 03/31 Labs Reviewed:MG 2.6, BUN 65, K 3.2,Glu 212, Alb 3.4 Meds Noted:Precedex, Solu Medrol, Lasix, Vancomycin, Zetia, Lovenox, Cefepime, Protonix. Skin:WNL Additional Notes: Patient extubated today, on 6L O2. Tube feedings have been stopped, NPO diet at this time. Recommend heart healthy diet when advancing diet orders. Following daily in ICU rounds. Assessing/reassessing 3 days.
--- NOTE | 2021-04-01 12:53 | WPDINTPN ---
Progress Note: A&P Assessment and Plan (1) Acute on chronic respiratory failure with hypoxia and hypercapnia: Code(s): J96.21 - Acute and chronic respiratory failure with hypoxia; J96.22 - Acute and chronic respiratory failure with hypercapnia Status: Acute Assessment and Plan: acute hypercapnic respiratory failure could be related to CHF exacerbation, COPD exacerbation, substance abuse, aspiration. Intubated on 03/21/2021 - chest x-ray reviewed - Increasing perihilar and infrahilar interstitial opacities most likely increasing mild pulmonary edema with small bilateral pleural effusions although pneumonia not excludable. - ABGs reviewed - patient hypercarbic at baseline CT Chest 03/26 IMPRESSION: 1. Bilateral dependent opacities of the lungs and patchy opacities of the upper lobes, consistent with atelectasis and pneumonia. 2. Mediastinal lymphadenopathy, likely reactive. -continue CMV mode of ventilation. - continue bronchodilators with change to p.r.n. due to tachycardia -continue Pulmozyme -chest x-ray today shows stable mild airspace opacities in the mid and lower lung zones, consistent with pulmonary edema versus pneumonia. -patient has been diuresing well -patient on PSV mode of ventilation, peep of 5, 40% FiO2. Patient was placed on SBT, repeat ABG showed hypercapnia with pCO2 of 76. Patient also has increased ETT secretions, -will place him on SBT and evaluate for extubation, hold tube feeds (2) Fever: Code(s): R50.9 - Fever, unspecified Status: Acute Assessment and Plan: PATIENT REMAINS AFEBRILE patient continues to have episodes of fever although his WBC is close to normal CT chest was done and reviewed UA was negative for any evidence of infection sputum cultures growing Staph aureus blood culture sent and are negative for now continue expanded antibiotic coverage to vancomycin and cefepime normal lipase (3) CHF exacerbation: Qualifiers: Heart failure type: unspecified Qualified Code(s): I50.9 - Heart failure, unspecified Code(s): I50.9 - Heart failure, unspecified Status: Acute Assessment and Plan: chest x-ray shows signs of congestive heart failure -Cardiology following Continue Lasix Echocardiogram 03/23/2021: LV systolic function is normal EF of 60-65%, grade 1 diastolic dysfunction. Dilated inferior vena cava with no collapse upon inspiration consistent with significantly elevated right atrial pressure, 15 mmHg. (4) COPD exacerbation: Code(s): J44.1 - Chronic obstructive pulmonary disease with (acute) exacerbation Status: Acute Assessment and Plan: COPD exacerbation given hypercapnic respiratory failure - currently intubated, ventilator has been adjusted for hypercapnia on ABGs - continue steroid - changed to daily a.m. does -continue bronchodilators, - his antibiotics were expanded to vancomycin and cefepime -ABG much improved, (5) Elevated troponin: Code(s): R77.8 - Other specified abnormalities of plasma proteins Status: Acute Assessment and Plan: troponin elevated x1, likely related to respiratory failure, could be related to methamphetamine and adrenergic surge -minimal elevation of troponin likely related to respiratory failure, tachycardia, substance abuse -cardiology evaluated patient and recommended conservative management and has signed off - EKG not suggestive of ischemic changes (6) Active substance abuse: Code(s): F19.10 - Other psychoactive substance abuse, uncomplicated Status: Acute Assessment and Plan: urine tox screen is positive for amphetamines, benzodiazepines and cocaine (7) DVT prophylaxis: Code(s): Z29.9 - Encounter for prophylactic measures, unspecified Status: Acute Assessment and Plan: DVT prophylaxis: Lovenox SQ stress ulcer prophylaxis: Protonix (8) Nicotine dependence: Code(s): F17.200 - Nicotine dependence, u
[2021-04-01 17:25] LABS: Glucose Point of Care 172 mg/dl (65-105)
[2021-04-01 18:15] LABS: Vancomycin Trough 13.3 ug/mL (10.0-20.0)
[2021-04-01] MEDS: INSULIN GLARGINE (*BKC) 100 UNITS/ML 10 UNITS SUB-Q (20:50)
[2021-04-01 20:58] LABS: Glucose Point of Care 170 mg/dl (65-105)
[2021-04-02] VITALS (24 sets, daily range): BP systolic 91–144; BP diastolic 39–90; PULSE 65–107; RESP 14–23; TEMP 36.1–36.8; O2SAT 87–99
[2021-04-02 00:51] LABS: Glucose Point of Care 179 mg/dl (65-105)
--- NOTE | 2021-04-02 01:06 | PC.NURSE ---
0000 pt using incentive spirometer with assist; able to reach 1400.
[2021-04-02 05:52] LABS: Glucose Point of Care 83 mg/dl (65-105)
[2021-04-02 07:15] LABS: Basophils Percent Auto 0.3 % (0.2-1.2); Eosinophils Absolute Auto 0.4 K/mm3 (0-0.3); Eosinophils Percent Auto 3.2 % (0-4.4); Hematocrit 47.2 % (42.0-52.0); Hemoglobin 14.9 g/dL (14.0-18.0); Immature Granulocyte Absolute 0.18 K/mm3 (0.00-0.031); Immature Granulocyte Percent A 1.6 % (0-0.5); Lymphocytes Absolute Auto 1.69 K/mm3 (0.9-3.2); Lymphocytes Percent Auto 15.4 % (18.3-44.2); Mean Corpuscular HGB Conc 31.6 g/dl (32-36); Mean Corpuscular Volume 95.2 fl (80-100); Mean Platelet Volume 11.2 fl (7.4-10.4); Monocytes Absolute Auto 0.6 K/mm3 (0.1-0.6); Monocytes Percent Auto 5.5 % (2.6-8.5); Neutrophils Absolute Auto 8.1 K/mm3 (1.3-6.7); Platelet Count Result 229 k/mm3 (150-375); Red Blood Count 4.96 M/mm3 (4.6-6.20); Red Cell Distribution Width 12.3 % (11.5-14.5)
[2021-04-02 07:59] LABS: Alanine Aminotransferase 88 U/L (4-50); Albumin Level 3.2 g/dL (3.5-5.1); Alkaline Phosphatase 79 U/L (38-126); Aspartate Amino Transferase 46 U/L (17-59); Bilirubin,Total 0.9 mg/dL (0.2-1.3); Blood Urea Nitrogen 52 mg/dL (9-20); Calcium 9.4 mg/dL (8.4-10.2); Carbon Dioxide > 40 mmol/L (22-30); Chloride 94 mmol/L (98-107); Estimated CRCL calculation 113 ml/min; Estimated Glomerular Filt Rate > 60; Glucose 127 mg/dL (65-110); Magnesium 2.3 mg/dL (1.6-2.3); Phosphorus 3.3 mg/dL (2.5-4.5); Potassium 3.4 mmol/L (3.4-5.0); Sodium 136 mmol/L (137-145)
--- NOTE | 2021-04-02 08:56 | PM.IMPN ---
Progress Note: A&P Assessment and Plan (1) Acute on chronic respiratory failure with hypoxia and hypercapnia: Code(s): J96.21 - Acute and chronic respiratory failure with hypoxia; J96.22 - Acute and chronic respiratory failure with hypercapnia Status: Acute Assessment and Plan: Acute hypercapnic respiratory failure felt to be multifactorial related to CHF exacerbation, COPD exacerbation, substance abuse, and/or aspiration PNA. Intubated on 03/21/2021. CT Chest 03/26 showing bilateral dependent opacities of the lungs and patchy opacities of the upper lobes, consistent with atelectasis and pneumonia. Repeat CXR yesterday showing improvement. Able to be extubated 04/01/21. Continue steroids for COPD. Continue Lasix for the CHF. He is on antibiotics for his pneumonia. Clinically improving. Continue aggressive pulmonary toilet. Appreciate financial compliance manager input. (2) Pneumonia: Code(s): J18.9 - Pneumonia, unspecified organism Status: Acute Assessment and Plan: Patient developed fevers on March 25. He was started on cefepime and vancomycin. Fever has waned. Concerning for pneumonia, possibly aspiration. [place] present on admission Blood culture and Urine culture negative. Sputum growing methicillin sensitive Staph aureus. Normal lipase. Continue current IV antibiotics. Once more stable, narrow abx. (3) CHF exacerbation: Qualifiers: Heart failure type: unspecified Qualified Code(s): I50.9 - Heart failure, unspecified Code(s): I50.9 - Heart failure, unspecified Status: Acute Assessment and Plan: Chest x-ray is consistent with CHF exacerbation. Echo 03/23/2021: LV systolic function is normal EF of 60-65%, grade 1 diastolic dysfunction. Dilated inferior vena cava with no collapse upon inspiration consistent with significantly elevated right atrial pressure, 15 mmHg. He is currently on IV Lasix with a cumulative fluid balance of -2.4 L. Renal function normal. Elevated BUN probably related to the steroids. Chest x-ray yesterday showing improvement but persistent bilateral lower lobe findings. Contineu Lasix. (4) COPD exacerbation: Code(s): J44.1 - Chronic obstructive pulmonary disease with (acute) exacerbation Status: Acute Assessment and Plan: Patient with a COPD exacerbation given hypercapnic respiratory failure. Patient able to be extubated. No wheezing appreciated on exam. Symbicort on hold. Weaning Solu-Medrol. Albuterol and Atrovent nebs available as needed. (5) Hyperglycemia: Code(s): R73.9 - Hyperglycemia, unspecified Status: Acute Assessment and Plan: Glucose elevated felt related to the steroids. A1c 6.0. Glucose better controlled. Continue sliding scale protocol. Hypoglycemia protocol has been ordered as well. Continue Lantus. Stop lantus once steroids are off. (6) Encephalopathy: Code(s): G93.40 - Encephalopathy, unspecified Status: Acute Assessment and Plan: Patient was confused and agitated on admission. TSH normal. Ammonia slightly elevated at 33. Likely toxic metabolic encephalopathy as it has improved after holding his sedation for extended period of time. Could also be related to drug use. Patient is now awake and alert but mildly confused. 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 Suspect persistent confusion related to ICU psychosis and/or drug use but will check CT brain given the weakness. (7) Active substance abuse: Code(s): F19.10 - Other psychoactive substance abuse, uncomplicated Status: Acute Assessment and Plan: UDS is positive for amphetamines, benzodiazepines and cocaine. Patient was educated about the benefits of abstaining from substance abuse. Care Coord consult to provide information about drug rehab. Hepatitis panel negative. HIV pending. (8) Elevated troponin: Code(s): R77.8 - Other specified abnormali
[2021-04-02] MEDS: ASPIRIN 81 MG CHEWABLE TABLET FEED TUBE (09:00)
[2021-04-02] MEDS: FUROSEMIDE INJ 40 MG/4 ML VIAL 20 MG IV PUSH ×2 (09:00→16:28)
[2021-04-02] MEDS: rOPINIRole HCL 1 MG TABLET 2 MG PO (09:55)
[2021-04-02] MEDS: PRAVASTATIN SODIUM 20 MG TABLET FEED TUBE (09:56)
[2021-04-02] MEDS: GABAPENTIN 300 MG CAPSULE PO ×2 (09:56→16:28)
[2021-04-02] MEDS: methylPREDNISolone SOD SUCC 125 MG VIAL 60 MG IV PUSH (09:57)
[2021-04-02] MEDS: EZETIMIBE 10 MG TABLET PO (09:57)
[2021-04-02] MEDS: ENOXAPARIN 40 MG/0.4 ML SYRINGE SUB-Q (09:58)
[2021-04-02] MEDS: PANTOPRAZOLE SODIUM IV 40 MG VIAL IV PUSH (09:59)
[2021-04-02 10:22] LABS: Hepatitis B Surface Antigen Negative (Negative)
[2021-04-02 10:27] LABS: HAV RESULT Negative (Negative); Hepatitis B Core IgM Result Negative (Negative)
[2021-04-02 10:39] LABS: Hepatitis C Virus Antibody Negative (Negative)
[2021-04-02] MEDS: ACETAMINOPHEN ELIXIR 325 MG/10.15 ML UDC 650 MG PO (10:43)
[2021-04-02 11:12] LABS: HIV 1/2 Ab P24 Ag Result Negative (Negative)
--- NOTE | 2021-04-02 11:51 | PCFNICU ---
ICU Rounding Note: Pt current nutrition is a full liquid diet. Last recorded weight is 137.1 kg. Bowel Motility: No BM documented. Labs Reviewed: Alb 3.2, Na 136, BUN 52, Glu 127 Meds Noted: Bisacodyl, Albuterol, Zetia, Sublimaze, Lovenox, Furosemide, Glucose, Glucagon, Neurontin, Lantus, Atrovent Neb, Miralax, Crestor, Vancomycin Hcl, Requip Skin:No skin breakdown at this time. WNL. Additional Notes: Recently extubated. Ensure BID is ordered providing an additional 220 calories and 9 grams of protein. Patient was able to drink some this morning per nursing. Following daily in ICU rounds. Assessing/reassessing every 3 days.
--- NOTE | 2021-04-02 12:51 | WPDINTPN ---
Progress Note: A&P Assessment and Plan (1) Acute on chronic respiratory failure with hypoxia and hypercapnia: Code(s): J96.21 - Acute and chronic respiratory failure with hypoxia; J96.22 - Acute and chronic respiratory failure with hypercapnia Status: Acute Assessment and Plan: acute hypercapnic respiratory failure could be related to CHF exacerbation, COPD exacerbation, substance abuse, aspiration. Intubated on 03/21/2021 - chest x-ray reviewed - Increasing perihilar and infrahilar interstitial opacities most likely increasing mild pulmonary edema with small bilateral pleural effusions although pneumonia not excludable. -patient successfully extubated on 04/01/2021 -encourage incentive spirometry -will consult PT/OT, up to chair as tolerated -continue diuresis, bronchodilators (2) Fever: Code(s): R50.9 - Fever, unspecified Status: Acute Assessment and Plan: Resolved patient continues to have episodes of fever although his WBC is close to normal CT chest was done and reviewed UA was negative for any evidence of infection sputum cultures growing Staph aureus blood culture sent and are negative for now continue expanded antibiotic coverage to vancomycin and cefepime normal lipase (3) CHF exacerbation: Qualifiers: Heart failure type: unspecified Qualified Code(s): I50.9 - Heart failure, unspecified Code(s): I50.9 - Heart failure, unspecified Status: Acute Assessment and Plan: chest x-ray shows signs of congestive heart failure -Cardiology following Continue diuretics Echocardiogram 03/23/2021: LV systolic function is normal EF of 60-65%, grade 1 diastolic dysfunction. Dilated inferior vena cava with no collapse upon inspiration consistent with significantly elevated right atrial pressure, 15 mmHg. (4) COPD exacerbation: Code(s): J44.1 - Chronic obstructive pulmonary disease with (acute) exacerbation Status: Acute Assessment and Plan: COPD exacerbation given hypercapnic respiratory failure - currently intubated, ventilator has been adjusted for hypercapnia on ABGs - continue steroid - changed to daily a.m. does -continue bronchodilators, - his antibiotics were expanded to vancomycin and cefepime -ABG much improved, (5) Elevated troponin: Code(s): R77.8 - Other specified abnormalities of plasma proteins Status: Acute Assessment and Plan: troponin elevated x1, likely related to respiratory failure, could be related to methamphetamine and adrenergic surge -minimal elevation of troponin likely related to respiratory failure, tachycardia, substance abuse -cardiology evaluated patient and recommended conservative management and has signed off - EKG not suggestive of ischemic changes (6) Active substance abuse: Code(s): F19.10 - Other psychoactive substance abuse, uncomplicated Status: Acute Assessment and Plan: urine tox screen is positive for amphetamines, benzodiazepines and cocaine (7) DVT prophylaxis: Code(s): Z29.9 - Encounter for prophylactic measures, unspecified Status: Acute Assessment and Plan: DVT prophylaxis: Lovenox SQ stress ulcer prophylaxis: Protonix (8) Nicotine dependence: Code(s): F17.200 - Nicotine dependence, unspecified, uncomplicated Status: Acute Assessment and Plan: patient continues to smoke half a packet per day Discussed with patient regarding tobacco use as well as illicit drug use, counseled him on cessation. He is affirmative that he is going to quit smoking (9) Encephalopathy: Code(s): G93.40 - Encephalopathy, unspecified Status: Acute Assessment and Plan: RESOLVED Likely toxic metabolic encephalopathy as it has improved after holding his sedation for extended period of time. Patient is now following commands with all 4 extremities and noting his head appropriately to questions. ammonia level revi
[2021-04-02 13:51] LABS: Glucose Point of Care 184 mg/dl (65-105)
[2021-04-02 17:43] LABS: Glucose Point of Care 227 mg/dl (65-105)
[2021-04-02] MEDS: INSULIN ASPART (*BKC) 100 UNITS/ML SUB-Q (17:46)
--- NOTE | 2021-04-02 18:51 | PC.NURSE ---
Report given to Roxanna RN at 1851. Patient to go to 2nd medical room 240.
[2021-04-02] MEDS: INSULIN GLARGINE (*BKC) 100 UNITS/ML 10 UNITS SUB-Q (20:10)
[2021-04-02 21:09] LABS: Glucose Point of Care 167 mg/dl (65-105)
[2021-04-03] VITALS (12 sets, daily range): BP systolic 115–144; BP diastolic 64–86; PULSE 64–115; RESP 18–22; TEMP 36–37.2; O2SAT 90–96
[2021-04-03 05:50] LABS: Basophils Percent Auto 0.2 % (0.2-1.2); Eosinophils Absolute Auto 0.2 K/mm3 (0-0.3); Eosinophils Percent Auto 1.4 % (0-4.4); Hematocrit 47.8 % (42.0-52.0); Hemoglobin 15.4 g/dL (14.0-18.0); Immature Granulocyte Percent A 0.9 % (0-0.5); Lymphocytes Percent Auto 13.6 % (18.3-44.2); Mean Corpuscular HGB Conc 32.2 g/dl (32-36); Mean Corpuscular Volume 93.2 fl (80-100); Monocytes Absolute Auto 0.7 K/mm3 (0.1-0.6); Monocytes Percent Auto 6.1 % (2.6-8.5); Neutrophils Absolute Auto 8.6 K/mm3 (1.3-6.7); Neutrophils Percent Auto 77.8 % (45.5-73.1); Platelet Count Result 255 k/mm3 (150-375); Red Blood Count 5.13 M/mm3 (4.6-6.20); Red Cell Distribution Width 11.9 % (11.5-14.5); White Blood Count 11.1 K/mm3 (4.5-10.0)
[2021-04-03 05:59] LABS: Alanine Aminotransferase 139 U/L (4-50); Albumin Level 3.5 g/dL (3.5-5.1); Alkaline Phosphatase 87 U/L (38-126); Aspartate Amino Transferase 71 U/L (17-59); Blood Urea Nitrogen 47 mg/dL (9-20); Calcium 9.8 mg/dL (8.4-10.2); Carbon Dioxide > 40 mmol/L (22-30); Chloride 94 mmol/L (98-107); Estimated CRCL calculation 102 ml/min; Estimated Glomerular Filt Rate > 60; Glucose 112 mg/dL (65-110); Magnesium 2.3 mg/dL (1.6-2.3); Phosphorus 3.9 mg/dL (2.5-4.5); Potassium 3.2 mmol/L (3.4-5.0); Sodium 138 mmol/L (137-145)
--- NOTE | 2021-04-03 07:38 | PCNSR ---
On 04/03/21, the student,Shasta Lo, provided care and completed [facility] documentation on this patient. I have reviewed the student's documentation and agree with the findings.
[2021-04-03 07:46] LABS: Glucose Point of Care 106 mg/dl (65-105)
[2021-04-03] MEDS: MINERAL OIL/WHITE PETROLATUM OINTMENT 1 APPLIC EACH EYE ×2 (09:08→20:23)
[2021-04-03] MEDS: GABAPENTIN 300 MG CAPSULE PO ×2 (09:08→16:15)
[2021-04-03] MEDS: EZETIMIBE 10 MG TABLET PO (09:09)
[2021-04-03] MEDS: ROSUVASTATIN 10 MG TABLET 40 MG PO (09:09)
[2021-04-03] MEDS: predniSONE 20 MG TABLET 40 MG PO (09:09)
[2021-04-03] MEDS: rOPINIRole HCL 1 MG TABLET 2 MG PO (09:10)
[2021-04-03] MEDS: POTASSIUM CHLORIDE 20 MEQ TABLET 40 MEQ PO (09:10)
[2021-04-03] MEDS: ENOXAPARIN 40 MG/0.4 ML SYRINGE SUB-Q (09:11)
[2021-04-03] MEDS: FUROSEMIDE INJ 40 MG/4 ML VIAL 20 MG IV PUSH ×2 (09:11→16:15)
[2021-04-03] MEDS: PANTOPRAZOLE SODIUM IV 40 MG VIAL IV PUSH (09:11)
[2021-04-03] MEDS: ASPIRIN 81 MG CHEWABLE TABLET PO (09:23)
--- NOTE | 2021-04-03 11:06 | PCNFU ---
Nutrition Follow-Up Complete: Inadequate oral intake related to oral intubation as evidenced by need for enteral feeding. Goal: Patient to meet estimated nutritional needs. Patient is progressing towards goal. No new goal. Pt current nutrition is full liquids advancing to heart healthy diet for lunch. Last recorded weight is 139.7 kg, down from 148.2 kg on admit. Bowel Motility:+BM reported 05/02 Labs Reviewed: Glu 112, BUN 47, Alb 3.2 Meds Noted:Prednisone, Requip, Crestor, Neurontin, Lasix, Lovenox, Miralax,Lantus. Skin:WNL Additional Notes: Nutrition follow up. Patient seen today, he states to tolerating full liquids for breakfast. Diet supplements of Ensure compact BID have been ordered for an additional 220 kcals and 9 gms protein. Patient had no diet questions or concerns. Agree with diet orders. Monitoring: Follow up every 5 days.
[2021-04-03 12:12] LABS: Glucose Point of Care 197 mg/dl (65-105)
--- NOTE | 2021-04-03 12:16 | PM.IMPN ---
Progress Note: A&P Assessment and Plan (1) Acute on chronic respiratory failure with hypoxia and hypercapnia: Code(s): J96.21 - Acute and chronic respiratory failure with hypoxia; J96.22 - Acute and chronic respiratory failure with hypercapnia Status: Acute Assessment and Plan: Acute hypercapnic respiratory failure felt to be multifactorial related to CHF exacerbation, COPD exacerbation, substance abuse, and/or aspiration PNA. Intubated on 03/21/2021. CT Chest 03/26 showing bilateral dependent opacities of the lungs and patchy opacities of the upper lobes, consistent with atelectasis and pneumonia. Repeat CXR 04/01 showing improvement. Able to be extubated 04/01/21. Continue steroids for COPD but change to prednisone. Continue Lasix for the CHF. He is completing his antibiotics for his pneumonia. Clinically improving. Continue aggressive pulmonary toilet. Close to baseline O2 requirement. (2) Pneumonia: Code(s): J18.9 - Pneumonia, unspecified organism Status: Acute Assessment and Plan: Patient developed fevers on March 25. He was started on cefepime and vancomycin. Fever has waned. Concerning for pneumonia, possibly aspiration. [place] present on admission Blood culture and Urine culture negative. Sputum growing methicillin sensitive Staph aureus. Normal lipase. Was on Rocephin 03/21-03/26 before being changed to Vanco and Cefepime. Stop Vancomycin. Continue Cefepime through today then stop. (3) CHF exacerbation: Qualifiers: Heart failure type: unspecified Qualified Code(s): I50.9 - Heart failure, unspecified Code(s): I50.9 - Heart failure, unspecified Status: Acute Assessment and Plan: Chest x-ray is consistent with CHF exacerbation. Echo 03/23/2021: LV systolic function is normal EF of 60-65%, grade 1 diastolic dysfunction. Dilated inferior vena cava with no collapse upon inspiration consistent with significantly elevated right atrial pressure, 15 mmHg. He is currently on IV Lasix with a cumulative fluid balance of -3.2 L. Renal function normal. Elevated BUN probably related to the steroids. Chest x-ray showing improvement but persistent bilateral lower lobe findings. Continue Lasix IV one more day. (4) COPD exacerbation: Code(s): J44.1 - Chronic obstructive pulmonary disease with (acute) exacerbation Status: Acute Assessment and Plan: Patient with a COPD exacerbation given hypercapnic respiratory failure. Patient able to be extubated. No wheezing appreciated on exam. Symbicort on hold. Change Solu-Medrol to Prednisone. Albuterol and Atrovent nebs available as needed. (5) Hyperglycemia: Code(s): R73.9 - Hyperglycemia, unspecified Status: Acute Assessment and Plan: Glucose elevated felt related to the steroids. A1c 6.0. Glucose better controlled. Continue sliding scale protocol. Hypoglycemia protocol has been ordered as well. Continue Lantus but decrease dose. Stop lantus once steroids are off. (6) Encephalopathy: Code(s): G93.40 - Encephalopathy, unspecified Status: Acute Assessment and Plan: Patient was confused and agitated on admission. TSH normal. Ammonia slightly elevated at 33. Likely toxic metabolic encephalopathy as it has improved after holding his sedation for extended period of time. Could also be related to drug use. He also has bilateral weakness felt related critical illness polyneuropathy that is improving. CT brain showing no acute findings. Suspect persistent confusion related to ICU psychosis and/or drug use. Contineu PT/OT. Encouraged patient to participate. (7) Active substance abuse: Code(s): F19.10 - Other psychoactive substance abuse, uncomplicated Status: Acute Assessment and Plan: UDS is positive for amphetamines, benzodiazepines and cocaine. Patient was educated about the benefits of abstaining from substance abuse. Care Coord consult to provide
[2021-04-03] MEDS: INSULIN ASPART (*BKC) 100 UNITS/ML SUB-Q (16:23)
[2021-04-03 16:27] LABS: Glucose Point of Care 208 mg/dl (65-105)
[2021-04-03] MEDS: INSULIN GLARGINE (*BKC) 100 UNITS/ML 7 UNITS SUB-Q (20:23)
[2021-04-03 21:40] LABS: Glucose Point of Care 142 mg/dl (65-105)
[2021-04-04] VITALS (10 sets, daily range): BP systolic 116–130; BP diastolic 68–89; PULSE 84–97; RESP 20; TEMP 36.1–36.6; O2SAT 93–97
[2021-04-04] MEDS: ACETAMINOPHEN ELIXIR 325 MG/10.15 ML UDC 650 MG PO (02:28)
[2021-04-04 06:29] LABS: Anion Gap 4 mmol/L (8-16); Blood Urea Nitrogen 45 mg/dL (9-20); Calcium 9.4 mg/dL (8.4-10.2); Carbon Dioxide 37 mmol/L (22-30); Chloride 96 mmol/L (98-107); Estimated CRCL calculation 113 ml/min; Estimated Glomerular Filt Rate > 60; Glucose 118 mg/dL (65-110); Sodium 137 mmol/L (137-145)
[2021-04-04 08:05] LABS: Glucose Point of Care 106 mg/dl (65-105)
[2021-04-04] MEDS: PANTOPRAZOLE 40 MG TABLET PO (08:57)
[2021-04-04] MEDS: ASPIRIN 81 MG CHEWABLE TABLET PO (08:57)
[2021-04-04] MEDS: ENOXAPARIN 40 MG/0.4 ML SYRINGE SUB-Q (08:57)
[2021-04-04] MEDS: POTASSIUM CHLORIDE 20 MEQ PACKET (FOR LIQUID) 40 MEQ PO ×2 (08:57→12:28)
[2021-04-04] MEDS: GABAPENTIN 300 MG CAPSULE PO ×2 (08:58→16:19)
[2021-04-04] MEDS: EZETIMIBE 10 MG TABLET PO (08:58)
[2021-04-04] MEDS: rOPINIRole HCL 1 MG TABLET 2 MG PO (08:58)
[2021-04-04] MEDS: predniSONE 20 MG TABLET 40 MG PO (08:58)
[2021-04-04] MEDS: ROSUVASTATIN 10 MG TABLET 40 MG PO (08:58)
[2021-04-04] MEDS: FUROSEMIDE INJ 40 MG/4 ML VIAL 20 MG IV PUSH (08:59)
[2021-04-04] MEDS: MINERAL OIL/WHITE PETROLATUM OINTMENT 1 APPLIC EACH EYE ×2 (08:59→20:25)
[2021-04-04 11:59] LABS: Glucose Point of Care 157 mg/dl (65-105)
--- NOTE | 2021-04-04 13:43 | PCPTNOTE ---
Attempted to see patient for PT treatment this date. Pt. declined to participate in therapy reporting he just ate and was not feeling up to it. Pt. was asked if he would be willing to work with therapy later today and pt. requested to be seen tomorrow. Will check back in on pt. tomorrow per POC.
[2021-04-04] MEDS: ACETAMINOPHEN 500 MG TABLET 1000 MG PO ×2 (16:19→22:32)
[2021-04-04 16:36] LABS: Glucose Point of Care 184 mg/dl (65-105)
[2021-04-04] MEDS: INSULIN GLARGINE (*BKC) 100 UNITS/ML 7 UNITS SUB-Q (20:26)
[2021-04-04 21:27] LABS: Glucose Point of Care 215 mg/dl (65-105)
[2021-04-05] VITALS (9 sets, daily range): BP systolic 101–143; BP diastolic 65–91; PULSE 85–97; RESP 16–20; TEMP 36–36.9; O2SAT 91–97
[2021-04-05 07:44] LABS: Anion Gap 6 mmol/L (8-16); Blood Urea Nitrogen 41 mg/dL (9-20); Calcium 9.4 mg/dL (8.4-10.2); Carbon Dioxide 35 mmol/L (22-30); Chloride 96 mmol/L (98-107); Estimated CRCL calculation 127 ml/min; Estimated Glomerular Filt Rate > 60; Glucose 106 mg/dL (65-110); Magnesium 2.2 mg/dL (1.6-2.3); Potassium 3.8 mmol/L (3.4-5.0); Sodium 137 mmol/L (137-145)
[2021-04-05 08:29] LABS: Glucose Point of Care 136 mg/dl (65-105)
[2021-04-05] MEDS: ROSUVASTATIN 10 MG TABLET 40 MG PO (08:55)
[2021-04-05] MEDS: rOPINIRole HCL 1 MG TABLET 2 MG PO (08:55)
[2021-04-05] MEDS: predniSONE 20 MG TABLET 40 MG PO (08:55)
[2021-04-05] MEDS: GABAPENTIN 300 MG CAPSULE PO ×2 (08:56→16:20)
[2021-04-05] MEDS: ASPIRIN 81 MG CHEWABLE TABLET PO (08:56)
[2021-04-05] MEDS: PANTOPRAZOLE 40 MG TABLET PO (08:56)
[2021-04-05] MEDS: EZETIMIBE 10 MG TABLET PO (08:56)
[2021-04-05] MEDS: MINERAL OIL/WHITE PETROLATUM OINTMENT 1 APPLIC EACH EYE (08:56)
[2021-04-05] MEDS: ENOXAPARIN 40 MG/0.4 ML SYRINGE SUB-Q (08:56)
--- NOTE | 2021-04-05 10:54 | PM.IMPN ---
Progress Note: A&P Assessment and Plan (1) Acute on chronic respiratory failure with hypoxia and hypercapnia: Code(s): J96.21 - Acute and chronic respiratory failure with hypoxia; J96.22 - Acute and chronic respiratory failure with hypercapnia Status: Acute Assessment and Plan: Acute hypercapnic respiratory failure felt to be multifactorial related to CHF exacerbation, COPD exacerbation, substance abuse, and/or aspiration PNA. Intubated on 03/21/2021. CT Chest 03/26 showing bilateral dependent opacities of the lungs and patchy opacities of the upper lobes, consistent with atelectasis and pneumonia. Repeat CXR 04/01 showing improvement. Able to be extubated 04/01/21. Continue steroids for COPD but change to prednisone. Continue Lasix for the CHF. He is completing his antibiotics for his pneumonia. Clinically improving. Continue aggressive pulmonary toilet. Close to baseline O2 requirement. (2) Pneumonia: Code(s): J18.9 - Pneumonia, unspecified organism Status: Acute Assessment and Plan: Patient developed fevers on March 25. He was started on cefepime and vancomycin. Fever has waned. Concerning for pneumonia, possibly aspiration. [place] present on admission Blood culture and Urine culture negative. Sputum growing methicillin sensitive Staph aureus. Normal lipase. Was on Rocephin 03/21-03/26 before being changed to Vanco and Cefepime, stopped 04/03. (3) CHF exacerbation: Qualifiers: Heart failure type: unspecified Qualified Code(s): I50.9 - Heart failure, unspecified Code(s): I50.9 - Heart failure, unspecified Status: Acute Assessment and Plan: Chest x-ray is consistent with CHF exacerbation. Echo 03/23/2021: LV systolic function is normal EF of 60-65%, grade 1 diastolic dysfunction. Dilated inferior vena cava with no collapse upon inspiration consistent with significantly elevated right atrial pressure, 15 mmHg. He is currently on IV Lasix with a cumulative fluid balance of -3.2 L. Renal function normal. Elevated BUN probably related to the steroids. Chest x-ray showing improvement but persistent bilateral lower lobe findings. Furosemide IV stopped 04/03. (4) COPD exacerbation: Code(s): J44.1 - Chronic obstructive pulmonary disease with (acute) exacerbation Status: Acute Assessment and Plan: Patient with a COPD exacerbation given hypercapnic respiratory failure. Patient able to be extubated. No wheezing appreciated on exam. Symbicort on hold. Albuterol and Atrovent nebs available as needed. Completing prednisone through (5) Hyperglycemia: Code(s): R73.9 - Hyperglycemia, unspecified Status: Acute Assessment and Plan: Glucose elevated felt related to the steroids. A1c 6.0. Glucose better controlled. Continue sliding scale protocol. Hypoglycemia protocol has been ordered as well. Continue Lantus but decrease dose. Stop lantus once steroids are off (04/07 is last day) (6) Encephalopathy: Code(s): G93.40 - Encephalopathy, unspecified Status: Acute Assessment and Plan: Patient was confused and agitated on admission. TSH normal. Ammonia slightly elevated at 33. Likely toxic metabolic encephalopathy as it has improved after holding his sedation for extended period of time. Could also be related to drug use. He also has bilateral weakness felt related critical illness polyneuropathy that is improving. CT brain showing no acute findings. Suspect persistent confusion related to ICU psychosis and/or drug use. Continue PT/OT. Encouraged patient to participate. 04/05 emotional but oriented and appropriate. (7) Active substance abuse: Code(s): F19.10 - Other psychoactive substance abuse, uncomplicated Status: Acute Assessment and Plan: UDS is positive for amphetamines, benzodiazepines and cocaine. Patient was educated about the benefits of abstaining from substance abuse. He is willi
[2021-04-05 12:21] LABS: Glucose Point of Care 183 mg/dl (65-105)
[2021-04-05 16:42] LABS: Glucose Point of Care 163 mg/dl (65-105)
[2021-04-05] MEDS: INSULIN GLARGINE (*BKC) 100 UNITS/ML 7 UNITS SUB-Q (20:41)
[2021-04-05 21:29] LABS: Glucose Point of Care 117 mg/dl (65-105)
[2021-04-06] VITALS (9 sets, daily range): BP systolic 114–146; BP diastolic 65–89; PULSE 71–98; RESP 16–20; TEMP 36.1–36.4; O2SAT 93–100
[2021-04-06 07:54] LABS: Glucose Point of Care 128 mg/dl (65-105)
[2021-04-06] MEDS: rOPINIRole HCL 1 MG TABLET 2 MG PO (08:07)
[2021-04-06] MEDS: GABAPENTIN 300 MG CAPSULE PO ×2 (08:08→16:43)
[2021-04-06] MEDS: PANTOPRAZOLE 40 MG TABLET PO (08:08)
[2021-04-06] MEDS: ASPIRIN 81 MG CHEWABLE TABLET PO (08:08)
[2021-04-06] MEDS: EZETIMIBE 10 MG TABLET PO (08:08)
[2021-04-06] MEDS: MINERAL OIL/WHITE PETROLATUM OINTMENT 1 APPLIC EACH EYE (08:08)
[2021-04-06] MEDS: ROSUVASTATIN 10 MG TABLET 40 MG PO (08:08)
[2021-04-06] MEDS: ENOXAPARIN 40 MG/0.4 ML SYRINGE SUB-Q (08:08)
[2021-04-06] MEDS: predniSONE 20 MG TABLET 40 MG PO (08:08)
--- NOTE | 2021-04-06 09:14 | PCPTNOTE ---
Attempted to see patient for PT at this time, however patient declined due to wanting to sleep longer.
--- NOTE | 2021-04-06 10:34 | PCOTNOTE ---
Pt. declined OT this morning stated Please no, I have had no sleep. Can you please come back later.
[2021-04-06 12:05] LABS: Glucose Point of Care 180 mg/dl (65-105)
--- NOTE | 2021-04-06 14:28 | PM.IMPN ---
Progress Note: A&P Assessment and Plan (1) Acute on chronic respiratory failure with hypoxia and hypercapnia: Code(s): J96.21 - Acute and chronic respiratory failure with hypoxia; J96.22 - Acute and chronic respiratory failure with hypercapnia Status: Acute Assessment and Plan: Acute hypercapnic respiratory failure felt to be multifactorial related to CHF exacerbation, COPD exacerbation, substance abuse, and/or aspiration PNA. Intubated on 03/21/2021. CT Chest 03/26 showing bilateral dependent opacities of the lungs and patchy opacities of the upper lobes, consistent with atelectasis and pneumonia. Repeat CXR 04/01 showing improvement. Able to be extubated 04/01/21. Continue steroids for COPD but changed to prednisone that will finish tomorrow. He has completing his antibiotics for his pneumonia. Clinically improving. Continue aggressive pulmonary toilet. At baseline O2 requirement. (2) Pneumonia: Code(s): J18.9 - Pneumonia, unspecified organism Status: Acute Assessment and Plan: Patient developed fevers on March 25. He was started on cefepime and vancomycin. Fever has waned. Concerning for pneumonia, possibly aspiration. [place] present on admission. Blood culture and Urine culture negative. Sputum growing methicillin sensitive Staph aureus. Normal lipase. Was on Rocephin 03/21-03/26 before being changed to Vanco and Cefepime. All abx stopped 04/03. (3) CHF exacerbation: Qualifiers: Heart failure type: unspecified Qualified Code(s): I50.9 - Heart failure, unspecified Code(s): I50.9 - Heart failure, unspecified Status: Acute Assessment and Plan: Chest x-ray is consistent with CHF exacerbation. Echo 03/23/2021: LV systolic function is normal EF of 60-65%, grade 1 diastolic dysfunction. Dilated inferior vena cava with no collapse upon inspiration consistent with significantly elevated right atrial pressure, 15 mmHg. He was currently on IV Lasix. Renal function normal. Elevated BUN probably related to the steroids. Chest x-ray showing improvement but persistent bilateral lower lobe findings. Furosemide IV stopped 04/03. He is on Bumex at home which we will resume. (4) COPD exacerbation: Code(s): J44.1 - Chronic obstructive pulmonary disease with (acute) exacerbation Status: Acute Assessment and Plan: Patient with a COPD exacerbation given hypercapnic respiratory failure. Patient able to be extubated. Symbicort resumed. Albuterol and Atrovent nebs available as needed. Completing prednisone through tomorrow. (5) Hyperglycemia: Code(s): R73.9 - Hyperglycemia, unspecified Status: Acute Assessment and Plan: Glucose elevated felt related to the steroids. A1c 6.0. Glucose better controlled. Continue sliding scale protocol. Hypoglycemia protocol has been ordered as well. Continue Lantus but hold after off Prednisone. (6) Encephalopathy: Code(s): G93.40 - Encephalopathy, unspecified Status: Acute Assessment and Plan: Patient was confused and agitated on admission. TSH normal. Ammonia slightly elevated at 33. Likely toxic metabolic encephalopathy as it has improved after holding his sedation for extended period of time. Could also be related to drug use. He also has bilateral weakness felt related critical illness polyneuropathy that is improving. CT brain showing no acute findings. Suspect persistent confusion related to ICU psychosis and/or drug use but this has resolved. Continue PT/OT. Encouraged patient to participate in PT/OT (7) Active substance abuse: Code(s): F19.10 - Other psychoactive substance abuse, uncomplicated Status: Acute Assessment and Plan: UDS is positive for amphetamines, benzodiazepines and cocaine. Patient was educated about the benefits of abstaining from substance abuse. He is willing to participate in an outpatient [facility] program (8) Elevated troponin:
[2021-04-06 16:39] LABS: Glucose Point of Care 235 mg/dl (65-105)
[2021-04-06] MEDS: BUMETANIDE 1 MG TABLET PO (16:43)
[2021-04-06] MEDS: INSULIN ASPART (*BKC) 100 UNITS/ML SUB-Q (16:43)
[2021-04-06] MEDS: INSULIN GLARGINE (*BKC) 100 UNITS/ML 7 UNITS SUB-Q (20:03)
[2021-04-06] MEDS: MELATONIN 5 MG TABLET PO (20:07)
[2021-04-06 21:10] LABS: Glucose Point of Care 139 mg/dl (65-105)
--- NOTE | 2021-04-06 22:41 | PCRCNOTE ---
Window of time for administration has passed. See next scheduled administration.
[2021-04-07] VITALS (10 sets, daily range): BP systolic 108–148; BP diastolic 65–90; PULSE 75–99; RESP 16–20; TEMP 36.1–37.1; O2SAT 94–98
[2021-04-07 06:11] LABS: Anion Gap 5 mmol/L (8-16); Blood Urea Nitrogen 31 mg/dL (9-20); Calcium 9.4 mg/dL (8.4-10.2); Carbon Dioxide 34 mmol/L (22-30); Chloride 96 mmol/L (98-107); Estimated CRCL calculation 125 ml/min; Estimated Glomerular Filt Rate > 60; Glucose 95 mg/dL (65-110); Potassium 3.6 mmol/L (3.4-5.0); Sodium 135 mmol/L (137-145)
[2021-04-07 07:54] LABS: Glucose Point of Care 109 mg/dl (65-105)
--- NOTE | 2021-04-07 08:11 | PCOTNOTE ---
Attempted to see patient, patient very agitated and cursing while discussing family matters. Patient encouraged to participate in OT to increase strength, build wellness, and discussed counseling with social sciences professor. Will contact social sciences professor for follow up to increase patient's participation in OT to improve d/c planning and increase independence with ADLs. Will attempt to see patient again this PM.
[2021-04-07] MEDS: ROSUVASTATIN 10 MG TABLET 40 MG PO (08:14)
[2021-04-07] MEDS: ENOXAPARIN 40 MG/0.4 ML SYRINGE SUB-Q (08:14)
[2021-04-07] MEDS: BUMETANIDE 1 MG TABLET PO (08:14)
[2021-04-07] MEDS: PANTOPRAZOLE 40 MG TABLET PO (08:14)
[2021-04-07] MEDS: predniSONE 20 MG TABLET 40 MG PO (08:14)
[2021-04-07] MEDS: rOPINIRole HCL 1 MG TABLET 2 MG PO (08:14)
[2021-04-07] MEDS: GABAPENTIN 300 MG CAPSULE PO ×2 (08:14→17:40)
[2021-04-07] MEDS: ASPIRIN 81 MG CHEWABLE TABLET PO (08:14)
[2021-04-07] MEDS: EZETIMIBE 10 MG TABLET PO (08:14)
[2021-04-07 11:59] LABS: Glucose Point of Care 195 mg/dl (65-105)
--- NOTE | 2021-04-07 14:50 | PM.IMPN ---
Progress Note: A&P Assessment and Plan (1) Acute on chronic respiratory failure with hypoxia and hypercapnia: Code(s): J96.21 - Acute and chronic respiratory failure with hypoxia; J96.22 - Acute and chronic respiratory failure with hypercapnia Status: Acute Assessment and Plan: Acute hypercapnic respiratory failure felt to be multifactorial related to CHF exacerbation, COPD exacerbation, substance abuse, and/or aspiration PNA. Intubated on 03/21/2021. CT Chest 03/26 showing bilateral dependent opacities of the lungs and patchy opacities of the upper lobes, consistent with atelectasis and pneumonia. Repeat CXR 04/01 showing improvement. Extubated on 04/01/21. Treated with IV steroids for COPD but changed to prednisone that will finish today. He has completed his antibiotics for his pneumonia. Clinically improved. Continue aggressive pulmonary toilet. At baseline O2 requirement. PT/OT. Awaiting placement. (2) Pneumonia: Code(s): J18.9 - Pneumonia, unspecified organism Status: Acute Assessment and Plan: Patient developed fevers on March 25. He was started on cefepime and vancomycin. Fever has waned. Concerning for pneumonia, possibly aspiration. [place] present on admission. Blood culture and Urine culture negative. Sputum growing methicillin sensitive Staph aureus. Normal lipase. Was on Rocephin 03/21-03/26 before being changed to Vanco and Cefepime. All abx stopped 04/03. (3) CHF exacerbation: Qualifiers: Heart failure type: unspecified Qualified Code(s): I50.9 - Heart failure, unspecified Code(s): I50.9 - Heart failure, unspecified Status: Acute Assessment and Plan: Chest x-ray is consistent with CHF exacerbation. Echo 03/23/2021: LV systolic function is normal EF of 60-65%, grade 1 diastolic dysfunction. Dilated inferior vena cava with no collapse upon inspiration consistent with significantly elevated right atrial pressure, 15 mmHg. He was reated with IV Lasix. Renal function normal. Elevated BUN probably related to the steroids. Chest x-ray showing improvement but persistent bilateral lower lobe findings. Furosemide IV stopped 04/03. He is on Bumex at home which was resumed at half dose on 03/27. (4) COPD exacerbation: Code(s): J44.1 - Chronic obstructive pulmonary disease with (acute) exacerbation Status: Acute Assessment and Plan: Patient with a COPD exacerbation given hypercapnic respiratory failure. Patient able to be extubated 04/01. Symbicort resumed. Albuterol and Atrovent nebs available as needed. Completing prednisone today (5) Hyperglycemia: Code(s): R73.9 - Hyperglycemia, unspecified Status: Acute Assessment and Plan: Glucose elevated felt related to the steroids. A1c 6.0. Glucose better controlled. Continue sliding scale protocol. Hypoglycemia protocol has been ordered as well. Stop Lantus since off Prednisone today. Follow glucose values. Add metformin. (6) Encephalopathy: Code(s): G93.40 - Encephalopathy, unspecified Status: Acute Assessment and Plan: Patient was confused and agitated on admission. TSH normal. Ammonia slightly elevated at 33. Likely toxic metabolic encephalopathy as it has improved after holding his sedation for extended period of time. Could also be related to drug use. He also has bilateral weakness felt related critical illness polyneuropathy that is improving. CT brain showing no acute findings. Suspect confusion related to ICU psychosis and/or drug use but this has resolved. Continue PT/OT. Encouraged patient to participate in PT/OT (7) Active substance abuse: Code(s): F19.10 - Other psychoactive substance abuse, uncomplicated Status: Acute Assessment and Plan: UDS is positive for amphetamines, benzodiazepines and cocaine. Patient was educated about the benefits of abstaining from substance abuse. He is willing to participate in an outpati
[2021-04-07 16:32] LABS: Glucose Point of Care 149 mg/dl (65-105)
[2021-04-07] MEDS: metFORMIN HCL 250 MG TABLET PO (18:22)
[2021-04-07 21:17] LABS: Glucose Point of Care 103 mg/dl (65-105)
[2021-04-07] MEDS: MELATONIN 5 MG TABLET PO (23:21)
[2021-04-08 02:00] VITALS: BP 109/49; PULSE 75; RESP 16; TEMP 36.2; O2SAT 94
[2021-04-08 05:55] LABS: Anion Gap 5 mmol/L (8-16); Blood Urea Nitrogen 29 mg/dL (9-20); Calcium 9.1 mg/dL (8.4-10.2); Carbon Dioxide 33 mmol/L (22-30); Chloride 95 mmol/L (98-107); Estimated CRCL calculation 127 ml/min; Estimated Glomerular Filt Rate > 60; Glucose 95 mg/dL (65-110); Potassium 3.4 mmol/L (3.4-5.0); Sodium 133 mmol/L (137-145)
[2021-04-08 06:00] VITALS: BP 116/73; PULSE 84; RESP 18; TEMP 36.1; O2SAT 96
[2021-04-08 07:54] LABS: Glucose Point of Care 98 mg/dl (65-105)
[2021-04-08 08:00] VITALS: O2SAT 94
[2021-04-08 08:15] VITALS: O2SAT 94
[2021-04-08] MEDS: EZETIMIBE 10 MG TABLET PO (08:19)
[2021-04-08] MEDS: metFORMIN HCL 250 MG TABLET PO (08:19)
[2021-04-08] MEDS: ROSUVASTATIN 10 MG TABLET 40 MG PO (08:19)
[2021-04-08] MEDS: rOPINIRole HCL 1 MG TABLET 2 MG PO (08:19)
[2021-04-08] MEDS: ASPIRIN 81 MG CHEWABLE TABLET PO (08:19)
[2021-04-08] MEDS: BUMETANIDE 1 MG TABLET PO (08:19)
[2021-04-08] MEDS: ENOXAPARIN 40 MG/0.4 ML SYRINGE SUB-Q (08:19)
[2021-04-08] MEDS: POTASSIUM CHLORIDE 20 MEQ TABLET 40 MEQ PO (08:19)
[2021-04-08] MEDS: GABAPENTIN 300 MG CAPSULE PO (08:19)
[2021-04-08] MEDS: PANTOPRAZOLE 40 MG TABLET PO (08:19)
[2021-04-08 11:47] LABS: Glucose Point of Care 97 mg/dl (65-105)
[2021-04-08 12:00] VITALS: BP 107/52; PULSE 88; RESP 20; TEMP 36.9; O2SAT 97
--- NOTE | 2021-04-08 13:07 | PCNFU ---
Nutrition Follow-Up Complete: Inadequate oral intake related to oral intubation as evidenced by need for enteral feeding. Goal: Patient to meet estimated nutritional needs. Patient has met goal. No new goal. Pt current nutrition is DBCC with Ensure compact BID. Last recorded weight is 136.9 kg, down from 148.2 kg on admit. Bowel Motility:+BM 04/07 Labs Reviewed:BUN 29, Na 133 Meds Noted:Crestor, Requip, Lovenox, Bumex, Zetia, Protonix, Glucophage. Skin: WNL Additional Notes: Nutrition follow up. Patient is consuming 100% of DBCC diet. Diet supplements of Ensure compact BID are providing an additional 220 kcals and 9 gms protein. No further nutritional interventions needed. Monitoring: will monitor for length of stay.
--- NOTE | 2021-04-08 13:56 | PM.DS ---
DS: Admitting Diagnosis Discharge Date 04/08/21 Admitting Diagnosis Shortness of breath DS: Discharge Diagnosis Discharge Diagnosis (1) Acute on chronic respiratory failure with hypoxia and hypercapnia: Code(s): J96.21 - Acute and chronic respiratory failure with hypoxia; J96.22 - Acute and chronic respiratory failure with hypercapnia Status: Acute Assessment and Plan: Patient presents with acute hypercapnic respiratory failure felt to be multifactorial related to CHF exacerbation, COPD exacerbation, substance abuse, and/or aspiration PNA. Intubated on 03/21/2021. CT Chest 03/26 showing bilateral dependent opacities of the lungs and patchy opacities of the upper lobes, consistent with atelectasis and pneumonia. Repeat CXR 04/01 showing improvement. Extubated on 04/01/21. Treated with IV steroids for COPD but changed to prednisone; he completed the course. He completed a course of antibiotics for his pneumonia. Clinically improved. Wean o2 back to his baseline O2 requirement. He worked with PT/OT on occasion. He refused placement. He did well and was able to be discharged home on 04/08/21 (2) Pneumonia: Code(s): J18.9 - Pneumonia, unspecified organism Status: Acute Assessment and Plan: Patient developed fevers on March 25. He was started on cefepime and vancomycin. Fevers waned. Concerning for pneumonia, possibly aspiration. [place] present on admission. Blood culture and Urine culture negative. Sputum growing methicillin sensitive Staph aureus. Normal lipase. Was on Rocephin 03/21-03/26 before being changed to Vanco and Cefepime. All abx stopped 04/03 after a 2 week course. (3) CHF exacerbation: Qualifiers: Heart failure type: unspecified Qualified Code(s): I50.9 - Heart failure, unspecified Code(s): I50.9 - Heart failure, unspecified Status: Acute Assessment and Plan: Chest x-ray was consistent with CHF exacerbation. Echo 03/23/2021: LV systolic function is normal EF of 60-65%, grade 1 diastolic dysfunction. Dilated inferior vena cava with no collapse upon inspiration consistent with significantly elevated right atrial pressure, 15 mmHg. [place] he has acute diastolic CHF and was treated with IV Lasix. Renal function normal. Elevated BUN probably related to the steroids. Chest x-ray showing improvement but persistent bilateral lower lobe findings. Furosemide IV stopped 04/03. He is on Bumex at home which was resumed. (4) COPD exacerbation: Code(s): J44.1 - Chronic obstructive pulmonary disease with (acute) exacerbation Status: Acute Assessment and Plan: Patient with a COPD exacerbation given hypercapnic respiratory failure. Patient extubated 04/01. Symbicort resumed. Albuterol and Atrovent nebs available as needed. Completed steroid course. (5) Hyperglycemia: Code(s): R73.9 - Hyperglycemia, unspecified Status: Acute Assessment and Plan: Glucose elevated felt related to the steroids. A1c 6.0. Glucose better controlled with Lantus. Monitored with sliding scale protocol. Hypoglycemia protocol has been ordered as well. We stopped the Lantus once off steroids. We added metformin. (6) Encephalopathy: Code(s): G93.40 - Encephalopathy, unspecified Status: Acute Assessment and Plan: Patient was confused and agitated on admission. TSH normal. Ammonia slightly elevated at 33. Likely toxic metabolic encephalopathy related to above as it has improved after holding his sedation for extended period of time. Could also be related to drug use. He also has bilateral weakness felt related critical illness polyneuropathy that has resolved. CT brain showing no acute findings. Suspect confusion partly related to ICU psychosis and/or drug use but this has resolved. (7) Active substance abuse: Code(s): F19.10 - Other psychoactive substance abuse, uncomplicated Status: Acute Assessment and P
== END 2021-04-08 16:48 | disposition home health service (06) | DRG 130 ==
LOC: ANHED 12:39 → ANHICU 13:14 → ANH2MED 04-06 16:11 → ANHICU 04-09 10:27
PROVIDERS: Internal Medicine; Physician Assistant; Admitting Provider Internal Medicine; Emergency Provider Emergency Medicine; PCP Internal Medicine; Visit Provider Internal Medicine
DX: J96.22 Acute and chronic respiratory failure with hypercapnia (principal); Z68.43 Body mass index [BMI] 50.0-59.9, adult; I50.33 Acute on chronic diastolic (congestive) heart failure; E66.01 Morbid (severe) obesity due to excess calories; J96.21 Acute and chronic respiratory failure with hypoxia; I11.0 Hypertensive heart disease with heart failure; Z99.81 Dependence on supplemental oxygen; G92.8 Other toxic encephalopathy; J18.9 Pneumonia, unspecified organism; I25.10 Atherosclerotic heart disease of native coronary artery without angina pectoris; E87.0 Hyperosmolality and hypernatremia; E87.6 Hypokalemia; M70.61 Trochanteric bursitis, right hip; R73.9 Hyperglycemia, unspecified; R77.8 Other specified abnormalities of plasma proteins; F19.10 Other psychoactive substance abuse, uncomplicated; J44.0 Chronic obstructive pulmonary disease with (acute) lower respiratory infection; J44.1 Chronic obstructive pulmonary disease with (acute) exacerbation; F17.210 Nicotine dependence, cigarettes, uncomplicated; G47.33 Obstructive sleep apnea (adult) (pediatric); E78.00 Pure hypercholesterolemia, unspecified; E78.5 Hyperlipidemia, unspecified; M54.9 Dorsalgia, unspecified; G89.29 Other chronic pain; Z79.899 Other long term (current) drug therapy
CPT/HCPCS: 31500; 36415; 36600; 70450; 71045; 71250; 74018; 80048; 80053; 80074; 80202; 80307; 81001; 82140; 82375; 82805; 82948; 83036; 83050; 83605; 83690; 83735; 83880; 84100; 84133; 84439; 84443; 84480; 84484; 85025; 85027; 85610; 85730; 86703; 87040; 87070; 87077; 87086; 87186; 87205; 93005; 93306; 94002; 94003; 94640; 96374; 96375; 96376; 97110; 97116; 97161; 97165; 97530; 97535; 99291; A9270; C9113; G0379; G0432; J0330; J0692; J0696; J1630; J1650; J1815; J1940; J2060; J2250; J2704; J2920; J2930; J3010; J3370; J7040; J7512; Q9957

== ENCOUNTER 2021-04-09 07:25 | Emergency (ER) | payer OTHER, SELFPAY ==
--- NOTE | ~2021-04-09 | CT_ITS ---
EXAMINATION: CT brain wo con DATE: 04/09/2021 08:06 INDICATION: Patient fell yesterday. Head trauma. Headache. TECHNIQUE: Computed tomography (CT) of the head was performed without intravenous contrast. The mA wa s adjusted according to patient size. Iterative reconstruction technique was employed. Exam dose: 68 1.00 mGy-cm total exam DLP. COMPARISON: 04/02/2021 CT brain FINDINGS: A slight acute subdural hematoma is suggested in the posterior left temporal area (series 2 image 34). Short-term follow-up CT imaging within 24 hours is recommended. Bilateral vertebral artery, basilar artery and bilateral carotid siphon internal carotid artery calci fications are noted. There is nonspecific diminished attenuation of the cerebral white matter, likely due to chronic small vessel ischemic changes. Normal ventricular size. No skull fracture or bone destruction is detected. Included paranasal sinuses are normally developed and aerated. IMPRESSION: Very slight posterior left temporal acute subdural hematoma is suggested. Follow-up CT imaging within 24 hours is recommended. No skull fracture Cerebral atherosclerosis and chronic small vessel ischemic changes of the cerebral white matter Dr. Burdick telephoned the report including slight subdural hematoma in the posterior left temporal area on 04/09/2021 at 0820 hours to emergency room physician Dr. Miller. Reviewed, dictated and finalized at [facility]. Reviewed, dictated and finalized at [facility] [employer] IMPRESSION: Very slight posterior left temporal acute subdural hematoma is sug gested. Follow-up CT imaging within 24 hours is recommended. No skull fracture Cerebral atherosclerosis and chronic small vessel ischemic changes of the cereb ral white matter Dr. Burdick telephoned the report including slight subdural hematoma in the water quality tester ior left temporal area on 04/09/2021 at 0820 hours to emergency room physician Dr. Miller.
[2021-04-09 07:26] VITALS: BP 120/72; PULSE 86; RESP 19; TEMP 36.9; O2SAT 100
--- NOTE | 2021-04-09 07:36 | ECG_ITS ---
Measurements Intervals [place] Rate: 81 P: 72 TX: 181 QRS: -12 QRSD: 110 T: 86 QT: 339 QTc: 394 Interpretive Statements SINUS RHYTHM INCOMPLETE RIGHT BUNDLE BRANCH BLOCK DELAYED PRECORDIAL R/S TRANSITION LOW QRS VOLTAGE IN LIMB LEADS BORDERLINE T WAVE ABNORMALITY- HIGH LATERAL LEADS BASELINE ARTIFACT- II, III, AVR, AVL, AVF, V1-V6 BORDERLINE ECG Electronically Signed On 04-09-2021 8:06:02 DATA ENTRY PROCESSOR by Kashif Levy D.O.
--- NOTE | 2021-04-09 08:09 | ED.HA ---
HPI - Headache General Chief Complaint: Headache Stated Complaint: weak, h/a Time Seen by Provider: 04/09/21 07:27 History of Present Illness HPI Narrative: Patient is a 61-year-old male who presents ER with headache. Posterior and throbbing. No radiation. No nausea or vomiting or dizziness. No focal weakness in arm or leg. Patient was discharged from the hospital yesterday after a 19-day stay in the hospital. He was intubated for about 11 days due to substance abuse (amphetamines, cocaine, benzodiazepines) and respiratory failure related to CHF and COPD. He wears 2 L of oxygen chronically and has had no change in his O2 requirement. While in the hospital he completed an antibiotic regimen for pneumonia. He has no fevers or chills or sweats. No new shortness of breath or cough. The fall occurred yesterday evening. He reports he was trying to get out of a chair got caught up in his oxygen tubing when he fell to the ground striking his head. He does not believe he lost consciousness but he does take aspirin. His sister came over and helped him off the floor. Due to the persistent symptoms today he opted to come in to be evaluated. He has tried no medications at home to help alleviate his discomfort. Denies any illicit drug use in the last 24 hours. Related Data Home Medications Medication Instructions Recorded Confirmed ropinirole 2 mg PO DAILY 05/10/20 03/21/21 albuterol sulfate [ProAir HFA] 2 puff INHALATION Q4-6H PRN 05/11/20 03/21/21 aspirin 81 mg PO DAILY 05/11/20 03/21/21 cholecalciferol (vitamin D3) 50,000 unit PO WEEKLY 05/11/20 03/21/21 rosuvastatin 40 mg PO DAILY 03/21/21 03/21/21 Allergies Allergy/AdvReac Type Severity Reaction Status Date / Time No Known Allergies Allergy Verified 07/24/20 11:16 Review of Systems Review of Systems: All systems reviewed & are unremarkable except as noted in HPI and below Constitutional: Constitutional: Denies chills, Reports fatigue and Denies fever(s) ENT: Denies nasal congestion and Denies sore throat Cardiovascular: Cardiovascular: Denies chest pain, Denies rapid heart rate and Denies radiating jaw, neck or arm pain Respiratory: Respiratory: Denies cough, Denies dyspnea and Denies wheezing Gastrointestinal: Gastrointestinal: Denies abdominal pain, Denies nausea and Denies vomiting Neurologic: Denies syncope, Reports headache(s), Denies focal weakness and Denies numbness PMF Past Medical History Medical History Chronic back pain Chronic obstructive pulmonary disease Chronic respiratory failure with hypoxia, on home oxygen therapy Coronary artery disease Diverticulitis Hypercholesterolemia Hypertension Nicotine dependence Obstructive sleep apnea Surgical History Surgical History History of laparotomy Related to perforated diverticulitis. History of left heart catheterization Family History Family History Mother Aneurysm Other Cancer Social History Social History Social History: Surrogate decision-maker: Vicky Ortega and Nanette Fernandez, siblings. CODE STATUS: Full code. Smoking packs per day: 0.5 Smoking cigarettes per day: 10.0 Years smoked: 40 Smoking pack-years: 20.00 Smoking status: Current every day smoker Tobacco type: cigarettes Alcohol intake: current Substance use: current Substance use type: crack/cocaine, amphetamines and other Last use: 03/20/2021 Spiritual care concerns: No Exam Narrative: GENERAL: Well-appearing, morbidly obese, and in no acute distress. HEAD: Normocephalic, atraumatic. EYES: PERRL and EOMI. CHEST: Clear to auscultation. No respiratory distress. HEART: Regular rate and rhythm. Normal peripheral pulses. ABDOMEN: Soft, nontender, nondistended. EXTREMITIES: Normal
[2021-04-09 08:20] VITALS: TEMP 36.9
--- NOTE | 2021-04-09 08:43 | PC.NURSE ---
Attempted to call patient's sister, Vicky, per patient's request. No answer. Patient updated.
[2021-04-09 08:49] LABS: Basophils Percent Auto 0.3 % (0.2-1.2); Eosinophils Absolute Auto 0.2 K/mm3 (0-0.3); Eosinophils Percent Auto 1.7 % (0-4.4); Hematocrit 40.7 % (42.0-52.0); Hemoglobin 13.2 g/dL (14.0-18.0); Immature Granulocyte Absolute 0.04 K/mm3 (0.00-0.031); Immature Granulocyte Percent A 0.4 % (0-0.5); Lymphocytes Absolute Auto 1.35 K/mm3 (0.9-3.2); Lymphocytes Percent Auto 14.5 % (18.3-44.2); Mean Corpuscular HGB Conc 32.4 g/dl (32-36); Mean Corpuscular Hemoglobin 30.3 pg (26-34); Mean Corpuscular Volume 93.3 fl (80-100); Mean Platelet Volume 10.2 fl (7.4-10.4); Monocytes Absolute Auto 0.7 K/mm3 (0.1-0.6); Monocytes Percent Auto 7.7 % (2.6-8.5); Neutrophils Percent Auto 75.4 % (45.5-73.1); Platelet Count Result 244 k/mm3 (150-375); Red Blood Count 4.36 M/mm3 (4.6-6.20); Red Cell Distribution Width 12.6 % (11.5-14.5); White Blood Count 9.3 K/mm3 (4.5-10.0)
[2021-04-09 08:57] LABS: Anion Gap 4 mmol/L (8-16); Blood Urea Nitrogen 27 mg/dL (9-20); Calcium 9.2 mg/dL (8.4-10.2); Carbon Dioxide 34 mmol/L (22-30); Chloride 95 mmol/L (98-107); Estimated CRCL calculation 153 ml/min; Estimated Glomerular Filt Rate > 60; Glucose 104 mg/dL (65-110); Sodium 133 mmol/L (137-145)
--- NOTE | 2021-04-09 09:12 | PC.NURSE ---
Vicky updated on patient's status.
[2021-04-09 09:19] VITALS: BP 128/70; PULSE 92; RESP 19; TEMP 36.4; O2SAT 93
[2021-04-09 11:13] VITALS: BP 114/74; PULSE 84; RESP 19; O2SAT 93
--- NOTE | 2021-04-09 11:13 | PC.NURSE ---
[place] ETA: [id number]
[2021-04-09 12:14] VITALS: BP 123/74; PULSE 81; RESP 18; O2SAT 98
== END 2021-04-09 12:20 | disposition short-term general hospital (02) ==
PROVIDERS: Emergency Provider Emergency Medicine; PCP Internal Medicine
DX: S06.5X0A Traumatic subdural hemorrhage without loss of consciousness, initial encounter (principal); J44.9 Chronic obstructive pulmonary disease, unspecified; I50.9 Heart failure, unspecified; J96.11 Chronic respiratory failure with hypoxia; I25.10 Atherosclerotic heart disease of native coronary artery without angina pectoris; E78.00 Pure hypercholesterolemia, unspecified; I11.0 Hypertensive heart disease with heart failure; G47.33 Obstructive sleep apnea (adult) (pediatric); Z99.81 Dependence on supplemental oxygen; Z79.82 Long term (current) use of aspirin; Z87.01 Personal history of pneumonia (recurrent); F17.210 Nicotine dependence, cigarettes, uncomplicated; I45.10 Unspecified right bundle-branch block; R94.31 Abnormal electrocardiogram [ECG] [EKG]; I67.2 Cerebral atherosclerosis; W18.09XA Striking against other object with subsequent fall, initial encounter
CPT/HCPCS: 36415; 70450; 80048; 85025; 93005; 96374; 99291; J0131